=== PATIENT | female | born 1935 | race Caucasian/White ===

== ENCOUNTER → 2019-11-22 15:28 | Outpatient (BNVA) | payer MEDICARE, BC, SELFPAY | PROVIDERS: Visit Provider Nurse Practitioner Family | DX: E11.9 Type 2 diabetes mellitus without complications (principal); M15.9 Polyosteoarthritis, unspecified; F03.90 Unspecified dementia, unspecified severity, without behavioral disturbance, psychotic disturbance, mood disturbance, and anxiety; R29.6 Repeated falls; R26.81 Unsteadiness on feet; M62.59 Muscle wasting and atrophy, not elsewhere classified, multiple sites; R52 Pain, unspecified; I10 Essential (primary) hypertension; K57.92 Diverticulitis of intestine, part unspecified, without perforation or abscess without bleeding | CPT/HCPCS: 80053; 81003; 85025 ==

== ENCOUNTER 2019-11-25 10:17 | Emergency (ER) | payer MEDICARE, SELFPAY ==
[2019-11-25 10:18] VITALS: BP 196/85; PULSE 60; RESP 18; TEMP 36.5; O2SAT 94; BMI 23.8
--- NOTE | 2019-11-25 10:27 | ED_ITS ---
Entered by Genoveva Beltre, acting as scribe for Mendel Shahid DO HPI - Altered Mental Status General: Chief Complaint: Altered Mental Status Stated Complaint: AMS Time Seen by Provider: 11/25/19 10:28 History of Present Illness: HPI narrative: 84 yo female presents with altered mental status. Family member states that pt has had a complete mental status change. Pt is incontinent of bowel and bladder. Pts speech is slurred at times. Pt has diabetes and hasn't been treated for her diabetes. Pt answers questions when asked. Pt denies burning with urination or pain. MD complaint: altered mental status Onset (ago): day(s) Timing confirmed by: family member Severity: moderate Consistency of symptoms: Waxing and Waning Associated symptoms: Deny auditory hallucinations, visual hallucinations, depression, homicidal ideation or suicidal ideation Review of Systems Const: Denies: fever, chills, body aches, fatigue, malaise or night sweats Eyes: Denies: change in vision or blurry vision ENMT: Denies: throat pain, oral sores/lesions, dental pain, nasal discharge or nasal congestion Card: Denies: chest pain, palpitations, irregular heart rhythm, edema, syncope, shortness of breath on exertion, shortness of breath when lying down or leg pain with exertion Resp: Denies: shortness of breath, productive cough, non-productive cough or wheezing GI: Reports: abdominal pain; Denies: nausea, vomiting, vomiting blood, coffee grounds in vomit, difficulty swallowing, heartburn/indigestion, diarrhea, constipation, cramping, blood in stool or black tarry stool : Denies: flank pain, painful urination, urinary frequency, urinary urgency, urinary incontinence or blood in urine Musc: Denies: neck pain, back pain, extremity pain, extremity swelling, joint pain or joint swelling Skin/Breast: Denies: rash, itching or redness Neuro: Denies: headache, numbness in extremities, weakness in extremities, changes in sensation, lack of coordination, difficulty walking, frequent falls, dizziness, vertigo or confusion Psych: Denies: anxiety, depression, loss of interest, visual hallucinations, auditory hallucinations, suicidal ideation or homicidal ideation Endo: Denies: excessive urination, excessive thirst, tired all the time or cold intolerance Freddy/Lymph: Denies: easy bruising, easy bleeding, petechiae, enlarged lymph nodes or tender lymph nodes PFSH ED PFSH: Medical History Dementia Hypertension Muscle wasting and atrophy, not elsewhere classified, multiple sites Osteoarthritis Social History Smoking and tobacco status: never smoked Second hand smoke exposure: No Alcohol intake: never Lives independently: Yes Household members: spouse and other Details: children rotate staying at night Housing: House Marital status: Current occupational status: retired History of recent travel: No Current gender identity: Female Physical Exam Const: COMMON NORMALS: average body habitus, oriented x3 and alert GENERAL APPEARANCE: cooperative, comfortable, well kempt and well developed NUTRITIONAL APPEARANCE: not obese ORIENTATION/CONSCIOUSNESS: Yes awake, Yes oriented to person and Yes oriented to place HENMT: COMMON NORMALS: normocephalic, head/scalp atraumatic, EAC's normal, TM's normal bilaterally, external nose normal, moist oral mucous membranes and oropharynx normal HEAD & SCALP: normocephalic and atraumatic NOSE: external nose normal EXTERNAL AUDITORY CANAL: EAC's normal TYMPANIC MEMBRANE: TM's normal bilaterally MOUTH: oral and palatal mucosa normal, lip normal and tongue normal THROAT: posterior oropharynx normal and tonsils normal Eye: COMMON NORMALS: PERRL, EOMs intact bilaterally, conjunctivae normal and no scleral icterus CONJUNCTIVA: Yes conjunctivae normal PUPIL: Yes PERRL Neck/C-Spine: COMMON NORMALS: full ROM, no lymphadenopathy, supple, no meningeal signs and thyroid normal THYROID: thyroid normal and asymmetrical Lymph: LYMPHATIC: no lymphadenopathy noted Resp: COMMON NORMALS: normal respiratory effort, no retractions, no use of accessory muscles and clear to auscultation bilaterally AUSCULTATION: clear to auscultation bilaterally Cardio: COMMON NORMALS: regular rate and regular rhythm RATE: regular rate RHYTHM: regular rhythm HEART SOUNDS: no murmurs GI: COMMON NORMALS: normal to inspection, nondistended, normoactive bowel sounds, soft to palpation and no hepatosplenomegaly PALPATION: Yes soft and Yes no hepatosplenomegaly : COMMON NORMALS: Yes no CVA tenderness BLADDER/KIDNEY EXAM: Yes no CVA tenderness Back/Pelvis: COMMON NORMALS: no CVA tenderness LUMBAR SPINE/LOWER BACK: Yes normal to inspection Extremity: COMMON NORMALS: no clubbing, cyanosis or edema, no calf tenderness and no pedal edema Neuro: COMMON NORMALS: oriented x3 SENSORIUM/ORIENTATION: Yes alert, Yes oriented to person and Yes oriented to place MENINGEAL SIGNS: Yes no meningeal signs Psych: APPEARANCE: Yes well kempt Skin: COMMON NORMALS: no rashes or lesions noted and skin turgor normal GENERAL SKIN EXAM: no rashes or lesions noted and turgor normal Course ED course: Patient has no significant neurologic deficits now other than the slurred speech reported by the family earlier. Discussed different options they are not interested in anything aggressive because of her memory issues. We will go ahead and discharge her home at this time. If she has worsening problems she can return encourage 81 mg aspirin daily. Findings on the stroke score more consistent with her dementia. Family does not wish to pursue anything else at this time. Vital Signs: Vital signs: Vital Signs Temperature 97.7 F 11/25/19 10:18 Pulse Rate 60 11/25/19 14:47 Respiratory Rate 16 11/25/19 14:47 Blood Pressure 167/83 11/25/19 14:47 Pulse Oximetry 94 11/25/19 14:47 MDM - Altered Mental Status Lab Data: Labs: Lab Results 11/25/19 11/25/19 11/25/19 Range/Units 10:58 10:58 11:07 WBC (4.0-10.0) 10^3/ uL RBC (4.1-5.3) 10^6/u L Hgb (11.5-15.3) g/dL Hct (37.0-47.0) % MCV (81-99) fL MCH (28.0-34.0) pg MCHC (30.0-36.0) g/dL RDW (12.1-15.1) % Plt Count (130-400) 10^3/c mm MPV (7.4-10.4) fL Neut % (Auto) % Lymph % (Auto) % [place] % (Auto) % Eos % (Auto) % Baso % (Auto) % Neut # (Auto) (1.8-7.7) 10^3/u L Lymph # (Auto) (0.8-4.8) 10^3/u L [place] # (Auto) (0.2-0.9) 10^3/u L Eos # (Auto) (0.0-0.8) 10^3/u L Baso # (Auto) (0.0-0.1) 10^3/u L Nucleated RBC % (a uto) % Nucleated RBCs # /100WBC PT (10.5-13.3) SECO NDS INR (0.8-1.2) APTT (23.9-36.7) SECO NDS Sodium (136-145) mmol/L Potassium (3.5-5.1) mmol/L Chloride (98-107) mmol/L Carbon Dioxide (22-29) mmol/L Anion Gap (5-19) BUN (8-23) mg/dL Creatinine (0.5-0.9) mg/dL Glucose (65-115) mg/dL POC Glucose 296 (70-110) mg/dL Calcium (8.5-10.5) mg/dL Total Bilirubin (0.15-1.2) mg/dL AST (0-32) U/L ALT (0-33) U/L Alkaline Phosphata se (35-105) IU/L Troponin T Baselin e (0-10) ng/mL Troponin T 120 Min [place] (0-10) ng/mL Delta Troponin T (0-10) ABS# Total Protein (6.6-8.7) g/dL Albumin (3.5-5.2) g/dL Globulin (1.3-4.6) g/dL Urine Color Straw (Yellow) Urine Appearance Clear (CLEAR) Urine pH 7.0 (5-7) Ur Specific Gravit y 1.005 (1.005-1.030) Urine Protein Neg (Negative) Urine Glucose (UA) 4+ H (Normal) Urine Ketones Negative (Negative) Urine Blood Neg (Negative) Urine Nitrate Negative (Negative) Urine Bilirubin Neg (NEGATIVE) Urine Urobilinogen 4 H (Negative) mg/dL Ur Leukocyte [place]rec[place] ase Negative (Negative) Urine Opiates Scre en Negative (Negative) ng/mL Ur Barbiturates Sc reen Negative (Negative) ng/mL Ur Phencyclidine S crn Negative (Negative) ng/mL Ur Amphetamines Sc reen Negative (Negative) ng/mL U Benzodiazepines Scrn Negative (Negative) ng/mL Urine Cocaine Scre en Negative (Negative) ng/mL U Marijuana (THC) Screen Negative (Negative) ng/mL 11/25/19 11/25/19 11/25/19 Range/Units 11:13 11:13 11:13 WBC 7.0 (4.0-10.0) 10^3/ uL RBC 4.82 (4.1-5.3) 10^6/u L Hgb 14.6 (11.5-15.3) g/dL Hct 44.9 (37.0-47.0) % MCV 93.2 (81-99) fL MCH 30.3 (28.0-34.0) pg MCHC 32.5 (30.0-36.0) g/dL RDW 12.0 L (12.1-15.1) % Plt Count 291 (130-400) 10^3/c mm MPV 10.4 (7.4-10.4) fL Neut % (Auto) 68.0 % Lymph % (Auto) 21.6 % [place] % (Auto) 6.4 % Eos % (Auto) 2.8 % Baso % (Auto) 0.9 % Neut # (Auto) 4.8 (1.8-7.7) 10^3/u L Lymph # (Auto) 1.5 (0.8-4.8) 10^3/u L [place] # (Auto) 0.5 (0.2-0.9) 10^3/u L Eos # (Auto) 0.2 (0.0-0.8) 10^3/u L Baso # (Auto) 0.1 (0.0-0.1) 10^3/u L Nucleated RBC % (a uto) 0 % Nucleated RBCs # 0.0 /100WBC PT 14.40 H (10.5-13.3) SECO NDS INR 1.11 (0.8-1.2) APTT 25.4 (23.9-36.7) SECO NDS Sodium 132 L (136-145) mmol/L Potassium 4.1 (3.5-5.1) mmol/L Chloride 96 L (98-107) mmol/L Carbon Dioxide 25 (22-29) mmol/L Anion Gap 15.1 (5-19) BUN 10 (8-23) mg/dL Creatinine 0.6 (0.5-0.9) mg/dL Glucose 360 H (65-115) mg/dL POC Glucose (70-110) mg/dL Calcium 10.1 (8.5-10.5) mg/dL Total Bilirubin 1.0 (0.15-1.2) mg/dL AST 21 (0-32) U/L ALT 11 (0-33) U/L Alkaline Phosphata se 123 H (35-105) IU/L Troponin T Baselin e (0-10) ng/mL Troponin T 120 Min [place] (0-10) ng/mL Delta Troponin T (0-10) ABS# Total Protein 7.4 (6.6-8.7) g/dL Albumin 3.6 (3.5-5.2) g/dL Globulin 3.8 (1.3-4.6) g/dL Urine Color (Yellow) Urine Appearance (CLEAR) Urine pH (5-7) Ur Specific Gravit y (1.005-1.030) Urine Protein (Negative) Urine Glucose (UA) (Normal) Urine Ketones (Negative) Urine Blood (Negative) Urine Nitrate (Negative) Urine Bilirubin (NEGATIVE) Urine Urobilinogen (Negative) mg/dL Ur Leukocyte Grecia ase (Negative) Urine Opiates Scre en (Negative) ng/mL Ur Barbiturates Sc reen (Negative) ng/mL Ur Phencyclidine S crn (Negative) ng/mL Ur Amphetamines Sc reen (Negative) ng/mL U Benzodiazepines Scrn (Negative) ng/mL Urine Cocaine Scre en (Negative) ng/mL U Marijuana (THC) Screen (Negative) ng/mL 11/25/19 11/25/19 Range/Units 11:13 13:49 WBC (4.0-10.0) 10^3/ uL RBC (4.1-5.3) 10^6/u L Hgb (11.5-15.3) g/dL Hct (37.0-47.0) % MCV (81-99) fL MCH (28.0-34.0) pg MCHC (30.0-36.0) g/dL RDW (12.1-15.1) % Plt Count (130-400) 10^3/c mm MPV (7.4-10.4) fL Neut % (Auto) % Lymph % (Auto) % [place] % (Auto) % Eos % (Auto) % Baso % (Auto) % Neut # (Auto) (1.8-7.7) 10^3/u L Lymph # (Auto) (0.8-4.8) 10^3/u L [place] # (Auto) (0.2-0.9) 10^3/u L Eos # (Auto) (0.0-0.8) 10^3/u L Baso # (Auto) (0.0-0.1) 10^3/u L Nucleated RBC % (a uto) % Nucleated RBCs # /100WBC PT (10.5-13.3) SECO NDS INR (0.8-1.2) APTT (23.9-36.7) SECO NDS Sodium (136-145) mmol/L Potassium (3.5-5.1) mmol/L Chloride (98-107) mmol/L Carbon Dioxide (22-29) mmol/L Anion Gap (5-19) BUN (8-23) mg/dL Creatinine (0.5-0.9) mg/dL Glucose (65-115) mg/dL POC Glucose (70-110) mg/dL Calcium (8.5-10.5) mg/dL Total Bilirubin (0.15-1.2) mg/dL AST (0-32) U/L ALT (0-33) U/L Alkaline Phosphata se (35-105) IU/L Troponin T Baselin e 11 H (0-10) ng/mL Troponin T 120 Min [place] 10.30 H (0-10) ng/mL Delta Troponin T -0.70 L (0-10) ABS# Total Protein (6.6-8.7) g/dL Albumin (3.5-5.2) g/dL Globulin (1.3-4.6) g/dL Urine Color (Yellow) Urine Appearance (CLEAR) Urine pH (5-7) Ur Specific Gravit y (1.005-1.030) Urine Protein (Negative) Urine Glucose (UA) (Normal) Urine Ketones (Negative) Urine Blood (Negative) Urine Nitrate (Negative) Urine Bilirubin (NEGATIVE) Urine Urobilinogen (Negative) mg/dL Ur Leukocyte Grecia ase (Negative) Urine Opiates Scre en (Negative) ng/mL Ur Barbiturates Sc reen (Negative) ng/mL Ur Phencyclidine S crn (Negative) ng/mL Ur Amphetamines Sc reen (Negative) ng/mL U Benzodiazepines Scrn (Negative) ng/mL Urine Cocaine Scre en (Negative) ng/mL U Marijuana (THC) Screen (Negative) ng/mL Discharge Plan Discharge Patient Disposition: Home, Self-Care Clinical Impression: Dementia Qualifiers: Dementia type: unspecified type Dementia behavioral disturbance: without behavioral disturbance Qualified Code(s): F03.90 - Unspecified dementia without behavioral disturbance Hypertension Qualifiers: Hypertension type: essential hypertension Qualified Code(s): I10 - Essential (primary) hypertension Condition: Stable Prescriptions: New amlodipine 5 mg tablet 5 mg PO DAILY Qty: 30 RF: 0 Changed metoprolol tartrate 25 mg tablet 12.5 mg PO BID Qty: 0 RF: 0 No Action isosorbide mononitrate 60 mg tablet extended release 24 hr 60 mg PO QAM RF: 0 gabapentin 300 mg capsule 600 mg PO BID RF: 0 citalopram 10 mg tablet 10 mg PO DAILY RF: 0 trazodone 50 mg tablet 25 mg PO BEDTIME RF: 0 naproxen 500 mg tablet 500 mg PO BID PRN (Reason: Pain) RF: 0 ketoconazole 2 % cream 1 applic TOPICAL BID RF: 0 donepezil 10 mg tablet 10 mg PO BEDTIME RF: 0 metronidazole [Flagyl] 250 mg tablet 250 mg PO QID 7 Days Qty: 28 RF: 0 ciprofloxacin HCl [Cipro] 500 mg tablet 500 mg PO BID Qty: 14 RF: 0 Discharge Orders: Discharge Order (Routine); Ordered 11/25/19 Ordered By: Mendel Shahid Discharge Diet: Usual diet Discharge Activity: Resume usual activity Activity Restrictions/Additional Instructions: Follow up with your primary care doctor within the next week Discharge Date/Time: 11/25/19 14:48 Coding Level of Care Code ED Needle Molder for Zahra Fwli Exam Comprehensive NIH stroke score NIHSS Level Of Consciousness - 1a: 0 Level Of Consciousness Questions - 1b: One Correct Level Of Consciousness Commands - 1c: One Correct Best Gaze - 2: Normal Visual Chi - 3: No Visual Loss Facial Palsy - 4: Normal Motor Arm Right - 5: No Drift Motor Arm Left - 5: No Drift Motor Leg Right - 6: No Drift Motor Leg Left - 6: No Drift Limb Ataxia - 7: Absent Sensory - 8: Normal Best Language - 9: No Aphasia Dysarthia - 10: Mild/Moderate Dysarthia Extinction And Inattention - 11: 1 Score Total Score: 4 The documentation recorded by the Alexsander wilkinson Kialy, accurately reflects the service I personally performed and the decisions made by Zehra delgado Curtis L, Nov 25, 2019 10:17
[2019-11-25 10:33] VITALS: BP 220/108; PULSE 57; RESP 16; O2SAT 96
--- NOTE | 2019-11-25 10:43 | CT_ITS ---
WS: [id number] CT scan of the head, 11/25/2019 Clinical Data: Symptoms of Acute Stroke Comparison: MRI of the head and brain, 04/20/2010 DLP: 755.[address] scans at [facility] use at least one of these dose optimization techniques: automat ed exposure control; mA and/or kV adjustment per patient size (includes targeted exams where dose is matched to clinical indication); or iterative reconstruction. Findings: The ventricular system is moderately dilated without shift. No recent infarct or hemorrhage is seen. There are no abnormal intracerebral masses. The cerebellum and brainstem are not remarkable. Bony windows of the skull and skull base show no fractures or erosions. The mastoid air cells, copywriting intern al auditory canals, sella turcica, intraorbital contents, and paranasal sinuses are unremarkable. CT/CT head wo con* [id number] Impression: Negative for acute intracranial abnormalities.
--- NOTE | 2019-11-25 10:44 | ECG_ITS ---
Measurements Intervals [place] Rate: 58 P: 21 ND: 203 QRS: -24 QRSD: 86 T: 28 QT: 466 QTc: 459 SINUS BRADYCARDIA BORDERLINE LEFT AXIS DEVIATION [QRS AXIS < -20] MODERATE VOLTAGE CRITERIA FOR LVH, CONSIDER NORMAL VARIANT [MEETS CRITERIA IN ON ONE OF: R(aVL), S(V1), R(V5), R(V5/V6)+S(V1)] No previous ECG available for comparison Electronically Signed On 11-25-2019 21:20:52 [employer] SALES ENGINEER by Katerina Garcia M.D. [email or web address] f
[2019-11-25 11:07] VITALS: BP 189/91; PULSE 59; RESP 16; O2SAT 95
[2019-11-25 11:12] LABS: Glucose Point of Care 296 mg/dL (70-110)
--- NOTE | 2019-11-25 11:19 | PC.PHAR ---
pts family states pt has cipro and flagyl but hasnt started taking yet it was given for just incase
[2019-11-25 11:21] LABS: Basophils # 0.1 10^3/uL (0.0-0.1); Basophils % 0.9 %; Eosinophils # 0.2 10^3/uL (0.0-0.8); Eosinophils % 2.8 %; Hematocrit 44.9 % (37.0-47.0); Hemoglobin 14.6 g/dL (11.5-15.3); Lymphocytes # 1.5 10^3/uL (0.8-4.8); Lymphocytes % 21.6 %; Mean Corpuscular HGB Conc 32.5 g/dL (30.0-36.0); Mean Corpuscular Hemoglobin 30.3 pg (28.0-34.0); Mean Corpuscular Volume 93.2 fL (81-99); Mean Platelet Volume 10.4 fL (7.4-10.4); Monocytes # 0.5 10^3/uL (0.2-0.9); Monocytes % 6.4 %; Neutrophils # 4.8 10^3/uL (1.8-7.7); Nucleated Red Blood Cells % 0 %; Platelet Count 291 10^3/cmm (130-400); Red Blood Count 4.82 10^6/uL (4.1-5.3)
[2019-11-25 11:28] LABS: Add Urine Microscopic? NO
[2019-11-25 11:45] LABS: INR 1.11 (0.8-1.2); Partial Thromboplastin Time 25.4 SECONDS (23.9-36.7)
[2019-11-25 11:48] LABS: Alanine Aminotransferase 11 U/L (0-33); Albumin Level 3.6 g/dL (3.5-5.2); Alkaline Phosphatase 123 IU/L (35-105); Anion Gap 15.1 (5-19); Aspartate Amino Transferase 21 U/L (0-32); Blood Urea Nitrogen 10 mg/dL (8-23); Calcium 10.1 mg/dL (8.5-10.5); Carbon Dioxide 25 mmol/L (22-29); Chloride 96 mmol/L (98-107); Creatinine Clr Calc Pharmacy 44.3331; Globulin 3.8 g/dL (1.3-4.6); Glucose 360 mg/dL (65-115); Potassium 4.1 mmol/L (3.5-5.1); Sodium 132 mmol/L (136-145); Total Protein 7.4 g/dL (6.6-8.7)
[2019-11-25 11:49] LABS: Troponin(5th) Baseline 11 ng/mL (0-10)
[2019-11-25 11:51] LABS: Bilirubin Urine Neg (NEGATIVE); Blood Urine Neg (Negative); Glucose Urine UA 4+ (Normal); Ketones Urine Negative (Negative); Leukocyte Esterase Urine Negative (Negative); Nitrate Urine Negative (Negative); Protein Urine Neg (Negative); Specific Gravity, Urine 1.005 (1.005-1.030); Urine Appearance Clear (CLEAR); Urine Color Straw (Yellow); Urobilinogen Urine 4 mg/dL (Negative)
--- NOTE | 2019-11-25 12:02 | CT_ITS ---
WS: [id number] CT scan of the abdomen and pelvis with IV contrast. Additional two-dimensional coronal and sagittal r econstruction was performed. 11/25/2019 Clinical Data: abd pain Comparison: CT abdomen and pelvis, 07/12/2009 DLP: 598.[address] scans at [facility] use at least one of these dose optimization techniques: automat ed exposure control; mA and/or kV adjustment per patient size (includes targeted exams where dose is matched to clinical indication); or iterative reconstruction. Findings: The lower lungs show no nodules, masses or effusions. Bilateral hilar and subcarinal calcifications a re present. There is coronary artery calcification. The liver, gallbladder, spleen, adrenal glands and pancreas are normal. The kidneys show equal bilateral contrast excretion with a 4.04 cm left medial renal cortical cyst. N o hydronephrosis, masses or renal calculi are seen. The abdominal aorta is normal in size with calcif ication in the wall. No abscess, adenopathy, ascites, mass, obstruction or free air is seen.. No appendicitis or diverticulitis is seen. The stomach, small bowel and colon show no acute abnormali ties. There are numerous sigmoid diverticula. Uterus is absent.. The bladder is unremarkable. No ingu inal hernia is seen. The bones of the lower thorax, lumbar spine, pelvis, and hips show degenerative arthritic change of t he lumbar vertebral bodies with multiple levels of degenerative disc narrowing.. CT/CT abdomen pelvis w con* [id number] Impression: Negative for acute intra-abdominal or pelvic abnormalities.
[2019-11-25 12:10] LABS: Amphetamines Screen Urine Negative (Negative); Barbiturates Screen Urine Negative (Negative); Benzodiazepines Screen Urine Negative (Negative); Cocaine Screen Urine Negative (Negative); Opiate Screen Urine Negative (Negative); PCP Screen Urine Negative (Negative); THC Screen Urine Negative (Negative)
--- NOTE | 2019-11-25 12:44 | ECG_ITS ---
Measurements Intervals [place] Rate: 58 P: 83 [place]: 198 QRS: -19 QRSD: 97 T: 16 QT: 472 QTc: 467 SINUS BRADYCARDIA MINIMAL VOLTAGE CRITERIA FOR LVH, CONSIDER NORMAL VARIANT No previous ECG available for comparison Electronically Signed On 11-25-2019 21:24:38 ALLIGATOR HUNTER by Katerina Garica M.D. [email or web address]
[2019-11-25] MEDS: iohexol 300 mg/mL 100 mL Btl IV (13:10)
[2019-11-25 13:32] VITALS: BP 207/139; PULSE 60; RESP 17; O2SAT 94
[2019-11-25] MEDS: amlodipine 5 mg Tablet PO (14:32)
[2019-11-25 14:47] VITALS: BP 167/83; PULSE 60; RESP 16; O2SAT 94
== END 2019-11-25 14:48 | disposition home or self-care (01) ==
PROVIDERS: Emergency Provider Family Medicine
DX: F03.90 Unspecified dementia, unspecified severity, without behavioral disturbance, psychotic disturbance, mood disturbance, and anxiety (principal); I10 Essential (primary) hypertension
CPT/HCPCS: 36415; 36416; 70450; 74177; 80053; 80306; 80307; 81003; 82962; 84484; 85025; 85610; 85730; 93005; 99283; Q9967

== ENCOUNTER 2019-11-26 17:34 | Inpatient (IN) | payer MEDICARE, BC, SELFPAY ==
[2019-11-26] VITALS (24 sets, daily range): BP systolic 108–189; BP diastolic 46–90; PULSE 59–89; RESP 11–20; TEMP 36.5–36.6; O2SAT 90–98
--- NOTE | 2019-11-26 17:41 | ECG_ITS ---
Measurements Intervals [place] Rate: 58 P: 74 AR: 194 QRS: -4 QRSD: 91 T: 7 QT: 437 QTc: 431 SINUS BRADYCARDIA POSSIBLE ANTERIOR MYOCARDIAL INFARCTION , PROBABLY OLD [30 ms Q WAVE IN V3/V4, OR R < 0.2 mV IN V4] Compared to ECG 11/25/2019 12:45:15 Myocardial infarct finding now present Electronically Signed On 11-27-2019 7:49:34 IRON MOLDER HELPER by Katerina Garcia M.D. [email or web address]
--- NOTE | 2019-11-26 17:42 | ED_ITS ---
Entered by Tigist Matos, acting as scribe for Glendy Yeager MD HPI - Fall General: Chief Complaint: Fall Stated Complaint: FALL/ R LEG INJURY/ FACIAL DROOP/ SLURRED SPEECH Time Seen by Provider: 11/26/19 17:41 Source: family, EMS and RN notes reviewed Mode of arrival: EMS Limitations: altered mental status History of Present Illness: HPI Narrative: 84 yo female presents to ED after a fall that occurred today. The patient had gotten up to go to the bathroom when she fell. The spouse states the patient did not hit her head. She has pain and difficulty moving her L hip. She began having difficulty with her speech, slurring her words. Her last known normal was about 1600 today. 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 She is not following commands. The patient was here ysterday. complaint: fall Onset (ago): hour(s) (1.5 (1600)) Fall from: standing Fall witnessed: yes, by family Place fall occurred: care home/SNF Loss of consciousness: None Prolonged down time: no Symptoms prior to fall: none Context: tripped/slipped Location of injury: pelvis (R hip) Severity: severe Quality: sharp Associated symptoms-after fall: Reports difficulty walking; Denies abdominal pain, chest pain or neck pain Review of Systems Const: Denies: fever, chills, body aches or change in appetite Eyes: Denies: blurry vision or eye discomfort ENMT: Denies: throat pain or dental pain Card: Denies: chest pain Resp: Denies: shortness of breath GI: Denies: abdominal pain, nausea, vomiting or diarrhea : Denies: painful urination Musc: Denies: neck pain or back pain Skin/Breast: Denies: rash Neuro: Reports: difficulty walking Psych: Denies: depression Freddy/Lymph: Denies: easy bruising All/Imm: Denies: hives PFSH ED PFSH: Medical History (Updated 11/26/19 @ 19:16 by Glendy Yeager MD) Closed intertrochanteric fracture of right hip Dementia Hypertension Muscle wasting and atrophy, not elsewhere classified, multiple sites Osteoarthritis Subtrochanteric fracture of right femur Family History (Updated 11/22/19 @ 14:08 by Sue Gates LPN, RT) Family/Other Hypertension Heart disease Dementia CAD (coronary artery disease) Hyperlipidemia Social History (Updated 11/22/19 @ 14:34 by Sue Gates LPN, RT) Smoking and tobacco status: never smoked Second hand smoke exposure: No Alcohol intake: never Lives independently: Yes Household members: spouse Housing: House Marital status: Current occupational status: retired History of recent travel: No Current gender identity: Female Physical Exam Const: COMMON NORMALS: oriented x3 and healthy appearing HENMT: COMMON NORMALS: normocephalic and head/scalp atraumatic HEAD & SCALP: normocephalic and atraumatic Eye: COMMON NORMALS: PERRL and EOMs intact bilaterally PUPIL: Yes PERRL Neck/C-Spine: COMMON NORMALS: full ROM and supple Chest: COMMONS NORMALS: inspection of chest normal and palpation of chest normal Resp: COMMON NORMALS: normal respiratory effort, no retractions, no use of accessory muscles and clear to auscultation bilaterally AUSCULTATION: clear to auscultation bilaterally Cardio: COMMON NORMALS: regular rate, regular rhythm and no murmurs RATE: regular rate RHYTHM: regular rhythm GI: COMMON NORMALS: normal to inspection, nondistended, normoactive bowel sounds, soft to palpation, non-tender and no masses PALPATION: Yes soft Extremity: RIGHT LOWER EXTREMITY: Yes hip joint Neuro: COMMON NORMALS: oriented x3, moves all extremities and no focal motor deficits Psych: COMMON NORMALS: mental status grossly normal, thought process normal and cooperative THOUGHT PROCESS: normal thought process Skin: COMMON NORMALS: no rashes or lesions noted and no wounds GENERAL SKIN EXAM: no rashes or lesions noted Course Reevaluation(s): Reevaluation #1: Patient presents here after a fall and has a likely hip fracture will get x-ray on the hip. From family and EMS patient has had slurred speech and some facial droop over the last 2 hours. Patient was seen here in the ER for the same and speaking to the daughter who is a nurse I believe states she has been having these periods off and on where she has had difficulty speaking for days. I had a long discussion with her and discussed the possibility TPA or stroke alert and she states that this time she does not want to be aggressive and would not want TPA or any type of those measures. Exam on patient is very difficult because she received fentanyl. She is moving all her extremities at this time but will not answer any questions but again from family she has periods like this with her dementia. I did inform daughter if she changes her mind at all about being aggressive to let me know but did let her know that this is a time sensitive matter and she understands it but she states that this time that she would not want TPA or any aggressive measures. Time: 18:01 Vital Signs: Vital signs: Vital Signs Pulse Rate 59 L 11/26/19 18:02 Respiratory Rate 16 11/26/19 18:29 Blood Pressure 189/84 11/26/19 18:02 Pulse Oximetry 93 11/26/19 18:29 MDM - Fall MDM Narrative: Medical decision making narrative: Patient presents here with fall and does have a right hip fracture. Patient's head CT here is normal lab work is normal besides hyperglycemia. Patient has been stable while here. I spoke to hospitalist and will admit and I also spoke to orthopedic surgeon. Lab Data: Labs: Lab Results 11/26/19 11/26/19 11/26/19 Range/Units 17:46 17:50 17:50 WBC 7.0 (4.0-10.0) 10^3/ uL RBC 4.61 (4.1-5.3) 10^6/u L Hgb 13.5 (11.5-15.3) g/dL Hct 42.0 (37.0-47.0) % MCV 91.1 (81-99) fL MCH 29.3 (28.0-34.0) pg MCHC 32.1 (30.0-36.0) g/dL RDW 12.2 (12.1-15.1) % Plt Count 336 (130-400) 10^3/c mm MPV 11.0 H (7.4-10.4) fL Neut % (Auto) 58.3 % Lymph % (Auto) 30.1 % [place] % (Auto) 8.0 % Eos % (Auto) 2.1 % Baso % (Auto) 1.1 % Neut # (Auto) 4.1 (1.8-7.7) 10^3/u L Lymph # (Auto) 2.1 (0.8-4.8) 10^3/u L [place] # (Auto) 0.6 (0.2-0.9) 10^3/u L Eos # (Auto) 0.2 (0.0-0.8) 10^3/u L Baso # (Auto) 0.1 (0.0-0.1) 10^3/u L Nucleated RBC % (a uto) 0 % Nucleated RBCs # 0.0 /100WBC Sodium 132 L (136-145) mmol/L Potassium 3.9 (3.5-5.1) mmol/L Chloride 93 L (98-107) mmol/L Carbon Dioxide 26 (22-29) mmol/L Anion Gap 16.9 (5-19) BUN 19 (8-23) mg/dL Creatinine 0.9 (0.5-0.9) mg/dL Glucose 489 H (65-115) mg/dL POC Glucose 444 (70-110) mg/dL Calcium 10.1 (8.5-10.5) mg/dL Total Bilirubin 0.5 (0.15-1.2) mg/dL AST 16 (0-32) U/L ALT 11 (0-33) U/L Alkaline Phosphata se 128 H (35-105) IU/L Total Protein 6.5 L (6.6-8.7) g/dL Albumin 3.8 (3.5-5.2) g/dL Globulin 2.7 (1.3-4.6) g/dL Urine Color (Yellow) Urine Appearance (CLEAR) Urine pH (5-7) Ur Specific Gravit y (1.005-1.030) Urine Protein (Negative) Urine Glucose (UA) (Normal) Urine Ketones (Negative) Urine Blood (Negative) Urine Nitrate (Negative) Urine Bilirubin (NEGATIVE) Urine Urobilinogen (Negative) mg/dL Ur Leukocyte Grecia ase (Negative) 11/26/19 Range/Units 18:53 WBC (4.0-10.0) 10^3/ uL RBC (4.1-5.3) 10^6/u L Hgb (11.5-15.3) g/dL Hct (37.0-47.0) % MCV (81-99) fL MCH (28.0-34.0) pg MCHC (30.0-36.0) g/dL RDW (12.1-15.1) % Plt Count (130-400) 10^3/c mm MPV (7.4-10.4) fL Neut % (Auto) % Lymph % (Auto) % [place] % (Auto) % Eos % (Auto) % Baso % (Auto) % Neut # (Auto) (1.8-7.7) 10^3/u L Lymph # (Auto) (0.8-4.8) 10^3/u L [place] # (Auto) (0.2-0.9) 10^3/u L Eos # (Auto) (0.0-0.8) 10^3/u L Baso # (Auto) (0.0-0.1) 10^3/u L Nucleated RBC % (a uto) % Nucleated RBCs # /100WBC Sodium (136-145) mmol/L Potassium (3.5-5.1) mmol/L Chloride (98-107) mmol/L Carbon Dioxide (22-29) mmol/L Anion Gap (5-19) BUN (8-23) mg/dL Creatinine (0.5-0.9) mg/dL Glucose (65-115) mg/dL POC Glucose (70-110) mg/dL Calcium (8.5-10.5) mg/dL Total Bilirubin (0.15-1.2) mg/dL AST (0-32) U/L ALT (0-33) U/L Alkaline Phosphata se (35-105) IU/L Total Protein (6.6-8.7) g/dL Albumin (3.5-5.2) g/dL Globulin (1.3-4.6) g/dL Urine Color Yellow (Yellow) Urine Appearance Clear (CLEAR) Urine pH 5 (5-7) Ur Specific Gravit y 1.015 (1.005-1.030) Urine Protein Neg (Negative) Urine Glucose (UA) 4+ H (Normal) Urine Ketones Negative (Negative) Urine Blood Neg (Negative) Urine Nitrate Negative (Negative) Urine Bilirubin Neg (NEGATIVE) Urine Urobilinogen 1 H (Negative) mg/dL Ur Leukocyte Grecia ase Negative (Negative) Imaging Data^: xr hip: Radiologist's impression: ering Provider/Ordering MD: Glendy Yeager MD Date of Service: 11/26/19 Procedure(s): XR hip RT 2-3V wo/w pel* [id number] Accession Number(s): [id number] Report Number: [id number] PROCEDURE INFORMATION: Exam: XR Right Hip with Pelvis when Performed Exam date and time: 11/26/2019 6:20 PM Age: 84 years old Clinical indication: Injury or trauma; Fall; Initial encounter; Blunt trauma (contusions or hematomas); Right; Hip TECHNIQUE: Imaging protocol: XR Right hip with pelvis when performed. Views: 2 or 3 views. COMPARISON: CT abdomen pelvis w con* [id number] 11/25/2019 1:24 PM FINDINGS: Bones/joints: There is a markedly comminuted and overriding right intertrochanteric femur fracture. No additional acute fracture. There are moderate degenerative changes in the right hip and sacroiliac joint. No aggressive a neoplastic bony destruction is identified. Soft tissues: There is soft tissue edema. XR/XR hip RT 2-3V wo/w pel* [id number] IMPRESSION: There is a markedly comminuted and overriding right intertrochanteric femur fracture. CT Head: Radiologist's impression: Ordering Provider/Ordering MD: Glendy Yeager MD Date of Service: 11/26/19 Procedure(s): CT head wo con* [id number] Accession Number(s): [id number] Report Number: [id number] PROCEDURE INFORMATION: Exam: CT Head Without Contrast Exam date and time: 11/26/2019 5:45 PM Age: 84 years old Clinical indication: Speech disturbance; Unspecified; Patient HX: Fall - HX of dementia - garbled speech - unable to follow instructions; Additional info: Symptoms of acute stroke TECHNIQUE: Imaging protocol: Computed tomography of the head without contrast. Total DLP: 1430.14 mGy-cm Radiation optimization: All CT scans at this facility use at least one of these dose optimization techniques: automated exposure control; mA and/or kV adjustment per patient size (includes targeted exams where dose is matched to clinical indication); or iterative reconstruction. COMPARISON: CT head wo con* [id number] 11/25/2019 11:54 AM FINDINGS: Brain: Unchanged volume loss and periventricular low density compatible with small vessel disease changes. . No hemorrhage. Unremarkable white matter. No mass effect. Ventricles: Normal. No ventriculomegaly. Bones/joints: Unremarkable. No acute fracture. Sinuses: Visualized sinuses are unremarkable. No fluid levels. Mastoid air cells: Visualized mastoid air cells are well aerated. Soft tissues: Unremarkable. CT/CT head wo con* [id number] IMPRESSION: No acute intracranial abnormality. Radiation Dose CTDIVOL = (mGy): DLP = 1430.14 (mGy-cm) Dictated By: Leila Corley Signed By: Leila Corley Signed Date/Time: 11/26/191821 DD/ 20 EKG Data^: EKG 1: Attestation: I personally reviewed and interpreted this EKG as follows: EKG interpretation date: 11/26/19 EKG interpretation time: 18:24 Interpretation: sinus nila hr [address] or t wave abnormalities qrs 91 qtc 434 Discharge Plan Discharge Patient Disposition: Admitted As Inpatient Clinical Impression: Fall, Closed fracture of right hip, Acute hyperglycemia Condition: Stable Prescriptions: No Action isosorbide mononitrate 60 mg tablet extended release 24 hr 60 mg PO QAM RF: 0 gabapentin 300 mg capsule 600 mg PO BID RF: 0 citalopram 10 mg tablet 10 mg PO DAILY RF: 0 trazodone 50 mg tablet 25 mg PO BEDTIME RF: 0 naproxen 500 mg tablet 500 mg PO BID PRN (Reason: Pain) RF: 0 ketoconazole 2 % cream 1 applic TOPICAL BID RF: 0 donepezil 10 mg tablet 10 mg PO BEDTIME RF: 0 metronidazole [Flagyl] 250 mg tablet 250 mg PO QID 7 Days Qty: 28 RF: 0 ciprofloxacin HCl [Cipro] 500 mg tablet 500 mg PO BID Qty: 14 RF: 0 amlodipine 5 mg tablet 5 mg PO DAILY Qty: 30 RF: 0 metoprolol tartrate 25 mg tablet 12.5 mg PO BID Qty: 0 RF: 0 Referrals: Sue Monsivais FNP [Primary Care Provider] - Coding Level of Care Code ED Clinical Support Associate for Chg Fwd Exam Comprehensive The documentation recorded by the Carlo wilkinson Valerie R, accurately reflects the service I personally performed and the decisions made by Shobha delgado Korby, MD
[2019-11-26 17:49] LABS: Glucose Point of Care 444 mg/dL (70-110)
--- NOTE | 2019-11-26 17:54 | PC.NURSE ---
pt is unable to follow directions to get a accurate NIH scale.
[2019-11-26 17:59] LABS: Basophils # 0.1 10^3/uL (0.0-0.1); Basophils % 1.1 %; Eosinophils # 0.2 10^3/uL (0.0-0.8); Eosinophils % 2.1 %; Hemoglobin 13.5 g/dL (11.5-15.3); Lymphocytes # 2.1 10^3/uL (0.8-4.8); Lymphocytes % 30.1 %; Mean Corpuscular HGB Conc 32.1 g/dL (30.0-36.0); Mean Corpuscular Hemoglobin 29.3 pg (28.0-34.0); Mean Corpuscular Volume 91.1 fL (81-99); Monocytes # 0.6 10^3/uL (0.2-0.9); Neutrophils # 4.1 10^3/uL (1.8-7.7); Neutrophils % 58.3 %; Nucleated Red Blood Cells % 0 %; Platelet Count 336 10^3/cmm (130-400); Red Blood Count 4.61 10^6/uL (4.1-5.3); Red Cell Distribution Width 12.2 % (12.1-15.1)
[2019-11-26 18:22] LABS: Alanine Aminotransferase 11 U/L (0-33); Albumin Level 3.8 g/dL (3.5-5.2); Alkaline Phosphatase 128 IU/L (35-105); Anion Gap 16.9 (5-19); Aspartate Amino Transferase 16 U/L (0-32); Blood Urea Nitrogen 19 mg/dL (8-23); Calcium 10.1 mg/dL (8.5-10.5); Carbon Dioxide 26 mmol/L (22-29); Chloride 93 mmol/L (98-107); Globulin 2.7 g/dL (1.3-4.6); Glucose 489 mg/dL (65-115); Potassium 3.9 mmol/L (3.5-5.1); Sodium 132 mmol/L (136-145); Total Bilirubin 0.5 mg/dL (0.15-1.2); Total Protein 6.5 g/dL (6.6-8.7)
[2019-11-26] MEDS: HYDROmorphone 1 mg/mL INJ 1 mL IVP (18:29)
--- NOTE | 2019-11-26 18:32 | PC.NURSE ---
put pt on 2 l o2 via nasal cannula after dilaudid pushed over 3 min
[2019-11-26 19:01] LABS: Add Urine Microscopic? NO
[2019-11-26 19:04] LABS: Bilirubin Urine Neg (NEGATIVE); Blood Urine Neg (Negative); Glucose Urine UA 4+ (Normal); Ketones Urine Negative (Negative); Leukocyte Esterase Urine Negative (Negative); Nitrate Urine Negative (Negative); Protein Urine Neg (Negative); Specific Gravity, Urine 1.015 (1.005-1.030); Urine Appearance Clear (CLEAR); Urine Color Yellow (Yellow); Urobilinogen Urine 1 mg/dL (Negative); pH Urine 5 (5-7)
--- NOTE | 2019-11-26 19:06 | PM.MISC ---
Miscellaneous Note Purpose of Documentation: Pre-evaluation documentation Note: I have personally reviewed the x-rays following a call from the emergency department on this patient. The patient has a comminuted intertrochanteric/subtrochanteric hip fracture. Plan is to admit to the medical service and optimized for surgery.
[2019-11-26 19:21] LABS: Amphetamines Screen Urine Negative (Negative); Barbiturates Screen Urine Negative (Negative); Benzodiazepines Screen Urine Negative (Negative); Cocaine Screen Urine Negative (Negative); Opiate Screen Urine Negative (Negative); PCP Screen Urine Negative (Negative); THC Screen Urine Negative (Negative)
[2019-11-26 19:39] LABS: INR 1.18 (0.8-1.2)
[2019-11-26 19:40] LABS: Partial Thromboplastin Time 24.8 SECONDS (23.9-36.7)
--- NOTE | 2019-11-26 19:48 | PC.NURSE ---
Introduced self to patient and initiated vital signs. Patient presents A&O x 4. NAD, and ABCs intact. Respirations are even and unlabored. Pt states that the chief complaint for the ER visit today is due to a fractured hip (RT) from a ground level fall earlier today. Pt denies any vision disturbances or lightheadedness. Bed left in lowest position in semi-fowlers with side rails up.Reassured patient of needs and will continue to monitor.
--- NOTE | 2019-11-26 19:56 | PC.NURSE ---
Introduced self to patient and initiated vital signs. Patient presents NAD, ABCs intact, and agreeable to treatment. Respirations are even and unlabored. Pt states that the chief complaint for the ER visit today is due to a ground level fall and fracture of right femur. Bed left in lowest position with side rails up. Reassured patient of needs and will continue to monitor. Report called.
[2019-11-26 21:19] LABS: Glucose Point of Care 456 mg/dL (70-110)
--- NOTE | 2019-11-26 21:20 | PC.NURSE ---
Patient arrived from the ER at this time. Patient family at bedside stated that the patient was in the ER on 11/25/19 with increased confusion. Patient daughter states that the did a CT of head which was negative and that the patient improved and they went home. Patient daughter states that the ER doctor thought patient might of had a TIA. Patient has dementia. Patient daughter states that she stayed the night with the patient and then on 11/26/19 patient was more alert and had a good day. Patient daughter states that physical therapy came out around noon and patient did really well walking with a walker. Daughter states that they left patient and for just a couple of hours and when they did patient tried to get up from the chair by herself when her was in the bathroom and see fell and broke her right hip. Patient was brought to the ER and patient daughter said that patient had another CT which was again negative. Patient's daughter stated that the patient has not really spoken since they arrived at the hospital. Patient does open her eyes and looks at her daughter when she talks to them but does not respond verbally. Patient's daughter said that the patient had a difficult time swallowing her pills the night of 11/25/19. Patient is moving her arms around and does pull both her right and left legs up bending at the knees even though it hurts her right leg. Patient's daughter states that patient does not have an advance directive or a medical power of real estate attorney and that they will all have to talk about it. No edema noted to right leg and pedal pulses normal in bilateral feet. Cap refill less than 3 seconds.
--- NOTE | 2019-11-26 21:29 | PM.HP ---
Providers/Chief Complaint Admitting Physician: Sita Cat MD Primary Care Provider: RASHMI Grove Chief Complaint: FALL/ R LEG INJURY/ FACIAL DROOP/ SLURRED SPEECH History of Present Illness Milagro Salcedo is a 84 year old female Who lives at home with her . She has dementia. History is obtained from her daughter. Over the last year or so patient's dementia has progressively worsened. Over the last few months she is began having increasing difficulty with weakness and getting around though she still tries. She has had multiple falls over the last few months. In the last week or so this has increased. She was seen by primary care provider in the clinic recently with arrangements to get some home health because of the increasing falls. She had been seen in the emergency room a couple of days ago. Previous time she has not sustained an injury. Today, her went to the bathroom and when he came back patient had fallen on the floor in the living room. She fell onto a carpeted surface, landing on her right hip. She was ultimately found to have hip fracture. She is being admitted to the hospitalist service with orthopedic consultation for surgical intervention. During this time, patient also had some episodes of slurred speech. CT of the head did not show any acute abnormalities. This seems to have resolved. No recent fevers. She has chronic urinary incontinence but no reports of any diarrhea. No other symptoms to speak of. I will note that 1 of her 4 children stays at the home overnight while patient's , who is 89, cares for her during the day generally. Review of Systems General: Reports: ROS unobtainable due to mental status (Information here obtained from the daughter) Const: Reports: change in appetite and fatigue; Denies: fever or chills Resp: Denies: productive cough GI: Reports: abdominal pain; Denies: vomiting : Reports: urinary incontinence Musc: Reports: extremity pain (right hip) Neuro: Reports: difficulty walking (Shuffling gait), frequent falls, confusion and slurred speech Psych: Reports: memory loss Medications/Allergies Allergies Allergy/AdvReac Type Severity Reaction Status Date / Time atorvastatin [From Lipitor] Allergy ADR-Cramping Verified 11/26/19 17:49 of the Muscles Penicillins Allergy ALGY-Rash Verified 11/26/19 17:49 simvastatin [From Zocor] Allergy ADR-Cramping Verified 11/26/19 17:49 of the Muscles Sulfa (Sulfonamide Allergy ALGY-Rash Verified 11/26/19 17:49 Antibiotics) Additional Medication Information Additional Medication Information: Home Medications Medication Instructions Recorded Confirmed Type citalopram 10 mg tablet 10 mg PO DAILY 11/22/19 11/26/19 History donepezil 10 mg tablet 10 mg PO BEDTIME 11/22/19 11/26/19 History gabapentin 300 mg capsule 600 mg PO BID cap 11/22/19 11/26/19 History isosorbide mononitrate 60 mg 60 mg PO QAM 11/22/19 11/26/19 History tablet,extended release 24 hr ketoconazole 2 % topical cream 1 applic TOPICAL BID 11/22/19 11/26/19 History naproxen 500 mg tablet 500 mg PO BID PRN 11/22/19 11/26/19 History trazodone 50 mg tablet 25 mg PO BEDTIME tab 11/22/19 11/26/19 History PFSH Acute PFSH: Medical History CAD (coronary artery disease) Dementia Diabetes mellitus diet controlled to date Hyperlipemia Hypertension Muscle wasting and atrophy, not elsewhere classified, multiple sites Osteoarthritis Surgical History History of colon resection History of coronary artery stent placement Hx of appendectomy Hx of hysterectomy Family History Family/Other Hypertension Heart disease Dementia CAD (coronary artery disease) Hyperlipidemia Social History Smoking and tobacco status: never smoked Second hand smoke exposure: No Alcohol intake: never Lives independently: Yes Household members: spouse and other Details: children rotate staying at night Housing: House Marital status: Current occupational status: retired History of recent travel: No Current gender identity: Female Vitals/I&O/Wt Last Vital Signs Pulse 59 L 11/26/19 18:02 Resp 14 11/26/19 19:45 BP 112/46 11/26/19 19:58 Pulse Ox 95 11/26/19 19:45 Physical Exam Const: OTHER: Currently sedate HENMT: COMMON NORMALS: normocephalic, head/scalp atraumatic and moist oral mucous membranes Eye: COMMON NORMALS: PERRL and EOMs intact bilaterally GENERAL EYE: other (Patient initially appeared to not be able to see, but after waking up for a bit was smiling at her daughter) Neck/C-Spine: COMMON NORMALS: supple Resp: COMMON NORMALS: normal respiratory effort, no use of accessory muscles and clear to auscultation bilaterally Cardio: COMMON NORMALS: regular rate, regular rhythm and no murmurs GI: COMMON NORMALS: normal to inspection, nondistended, normoactive bowel sounds and soft to palpation PALPATION: Yes tender Details: LLQ, No guarding and No rebound tenderness present : COMMON NORMALS: Yes external appearance normal BLADDER/KIDNEY EXAM: Yes catheter in place Catheter type (Female): urethral Back/Pelvis: COMMON NORMALS: no CVA tenderness Extremity: NARRATIVE EXTREMITY EXAM: Right lower extremity is externally rotated and shortened. Patient is keeping it flexed at the hip and the knee. Brisk capillary refill and 2+ pulses bilaterally. No pitting edema Neuro: COMMON NORMALS: moves all extremities (Although decreased of right lower extremity); negative for oriented x3 OTHER: Patient woke up during my examination. Face was symmetric. Pupils were approximately 4 mm to 3 mm and reactive bilaterally. Patient however appeared to be staring into space and was not making any eye contact or following my gaze. Extraocular movements were grossly intact. She rubbed her eyes several times. I tried to check her visual acuity to confrontation with absolutely no response. She had equal corneal reflexes. It took a while but after I had her daughter take place that I was in, patient acknowledged her daughter's face with a big smile and then reached up to touch her daughter's face. I think that she was confused and came across looking like she might not be able to see. She gripped with both of her hands equally. Moves toes on right foot. Able to move the left lower extremity without difficulty. She did not speak while I was in the room. Skin: COMMON NORMALS: no rashes or lesions noted Data : 11/26/19 17:50 11/26/19 17:50 A&P Assessment and plan (1) Fall: At home in the living room resulting in hip fracture Status: Acute Qualifiers: Encounter type: initial encounter Qualified Code(s): W19.XXXA - Unspecified fall, initial encounter Code(s): W19.XXXA - Unspecified fall, initial encounter (2) Closed intertrochanteric fracture of right hip: Initial encounter Status: Acute Qualifiers: Encounter type: initial encounter Fracture alignment: nondisplaced Qualified Code(s): S72.144A - Nondisplaced intertrochanteric fracture of right femur, initial encounter for closed fracture Code(s): S72.141A - Displaced intertrochanteric fracture of right femur, initial encounter for closed fracture (3) Acute hyperglycemia: In a patient with known diabetes who has been diet controlled. Her sugars have been a little high at times but not like it has been this week. Status: Acute Code(s): R73.9 - Hyperglycemia, unspecified (4) Frequent falls: Progressively worsening over the last weeks Status: Acute Code(s): R29.6 - Repeated falls (5) Diverticulitis: Recent diagnosis for which patient is currently on Cipro and Flagyl Status: Acute Code(s): K57.92 - Diverticulitis of intestine, part unspecified, without perforation or abscess without bleeding (6) Hypertension: Status: Acute Qualifiers: Hypertension type: essential hypertension Qualified Code(s): I10 - Essential (primary) hypertension Code(s): I10 - Essential (primary) hypertension (7) Dementia: Status: Acute Qualifiers: Dementia type: unspecified type Dementia behavioral disturbance: without behavioral disturbance Qualified Code(s): F03.90 - Unspecified dementia without behavioral disturbance Code(s): F03.90 - Unspecified dementia without behavioral disturbance (8) CAD (coronary artery disease): Status: Acute Qualifiers: Coronary Disease-Associated Artery/Lesion type: [place] artery [place] vs. transplanted heart: [place] heart Associated angina: without angina Qualified Code(s): I25.10 - Atherosclerotic heart disease of [place] coronary artery without angina pectoris Code(s): I25.10 - Atherosclerotic heart disease of [place] coronary artery without angina pectoris Additional A&P Information Inpatient admission Dr. Buchanan to see for surgical evaluation From a preoperative standpoint we will check troponin and BNP just to have baseline but I do not believe we need to do any other cardiac testing. I reviewed potential risk of surgery including heart attack, stroke, infection, , bleeding, increased confusion among others with patient's daughter who is here. Patient has had decline over the last weeks to months. I reviewed that after having a hip fracture sometimes that decline will escalate even more depending on how she does. Daughter was understanding of this and does wish to proceed with surgical repair. We will continue on Cipro and Flagyl for the clinical diagnosis of diverticulitis to complete the course Continue half dose of usual isosorbide, full dose of usual metoprolol Continue patient Cipro, Aricept, gabapentin and Neurontin Other home medications as ordered Sliding scale insulin for diabetes I have ordered a low-dose of Levemir in this patient who is insulin na?ve but I expect we will need to go up on it. Insulin will probably be the best alternative when patient is discharged as well. Miller catheter currently but will need to remove as soon as able postoperatively SCDs for DVT prophylaxis currently, will hold any pharmacological DVT prophylaxis until we know that patient is or is not going to surgery tomorrow Supportive care otherwise Plans were discussed with patient's daughter who was given an opportunity to ask questions I did discuss discharge planning with the daughter. Given patient's dementia she may do better at home but it would require family to be able to care for her. She will discuss with her siblings. All of them spend the night at their parents house on a rotating basis already and it is possible that they may be able to provide more care so that patient could go back home. They understand that some of it will also depend on how patient does after surgery in terms of getting around and how much help she will actually need. The daughter assures that an open mind will be kept in this regard. Attestations Medical Necessity Statement*: Anticipated stay greater than 2 midnights in the patient with a fall and development of hip fracture. She will require surgical repair. Other medical history is as noted above. Coding Level of Care Code Acute Senior Compensation Analyst for Zahra Helms Diagnoses Fall W19.XXXA Encounter type: initial encounter Closed intertrochanteric fracture of right hip S72.144A Encounter type: initial encounter Fracture alignment: nondisplaced Acute hyperglycemia R73.9 Frequent falls R29.6 Diverticulitis K57.92 Hypertension I10 Hypertension type: essential hypertension Dementia F03.90 Dementia type: unspecified type Dementia behavioral disturbance: without behavioral disturbance CAD (coronary artery disease) I25.10 Coronary Disease-Associated Artery/Lesion type: [place] artery [place] vs. transplanted heart: [place] heart Associated angina: without angina
--- NOTE | 2019-11-26 21:38 | PC.NURSE ---
Spoke with Vito HARP in the emergency room at this time. Vito states that he did not give the patient any medications. Vito states, I received reported on her and 15 minutes later I call report to Marcy HARP. Vito is not sure if anyone else gave it. Dr. Cat notified.
[2019-11-26] MEDS: metoprolol tartrate 1 mg/1 mL SDV 5 mL 2.5 MG IV (23:06)
[2019-11-26 23:13] LABS: Glucose Point of Care 365 mg/dL (70-110)
[2019-11-26] MEDS: HYDROmorphone 1 mg/mL INJ 1 mL 0.5 MG IVP (23:52)
[2019-11-27] VITALS (11 sets, daily range): BP systolic 128–165; BP diastolic 67–96; PULSE 74–93; RESP 16–18; TEMP 36.6–37.3; O2SAT 92–94
[2019-11-27] MEDS: D5-NS 0.45% + KCL 20 mEq 20 MEQ/1,000 ML BAG 75 MEQ IV ×2 (00:11→11:50)
[2019-11-27 00:20] LABS: NT Pro B Type Natriuretic Pept 270 pg/mL (0-450)
[2019-11-27 00:43] LABS: Troponin T (5th) Once 15 ng/mL (0-10)
[2019-11-27] MEDS: HYDROmorphone 1 mg/mL INJ 1 mL 0.5 MG IVP ×3 (03:40→19:51)
[2019-11-27 05:19] LABS: Basophils % 0.3 %; Hematocrit 38.8 % (37.0-47.0); Hemoglobin 12.7 g/dL (11.5-15.3); Lymphocytes % 8.1 %; Mean Corpuscular HGB Conc 32.7 g/dL (30.0-36.0); Mean Corpuscular Hemoglobin 30.4 pg (28.0-34.0); Mean Corpuscular Volume 92.8 fL (81-99); Monocytes # 0.7 10^3/uL (0.2-0.9); Monocytes % 5.7 %; Neutrophils # 10.1 10^3/uL (1.8-7.7); Neutrophils % 85.6 %; Nucleated Red Blood Cells % 0 %; Platelet Count 300 10^3/cmm (130-400); Red Blood Count 4.18 10^6/uL (4.1-5.3); Red Cell Distribution Width 12.2 % (12.1-15.1); White Blood Count 11.8 10^3/uL (4.0-10.0)
--- NOTE | 2019-11-27 05:45 | PC.NURSE ---
NIHSS Patient opens her eyes but does not verbalize anything or follow commands. Patient has dementia.
[2019-11-27 05:47] LABS: Anion Gap 17.1 (5-19); Blood Urea Nitrogen 20 mg/dL (8-23); Calcium 9.4 mg/dL (8.5-10.5); Carbon Dioxide 25 mmol/L (22-29); Chloride 97 mmol/L (98-107); Glucose 439 mg/dL (65-115); Osmolality Calculated 295 mOsm/kg (285-295); Potassium 4.1 mmol/L (3.5-5.1); Sodium 135 mmol/L (136-145)
[2019-11-27 06:54] LABS: Glucose Point of Care 376 mg/dL (70-110)
--- NOTE | 2019-11-27 07:20 | PC.NURSE ---
I spoke with patient's daughter and she agreed not to give patient her morning IMdur because she is not sure she can swallow it and she is not following any commands. It would also cause the patient to much pain to sit her up using the bed.
[2019-11-27] MEDS: metoprolol tartrate 25 mg Tablet 12.5 MG PO ×2 (09:24→17:03)
[2019-11-27] MEDS: ketoconazole Cream 15 gm 1 APPLIC TOPICAL (09:35)
[2019-11-27 11:17] LABS: Glucose Point of Care 314 mg/dL (70-110)
--- NOTE | 2019-11-27 13:27 | P.CONIM_ITS ---
Providers/Reason For Consult Consulting Physican/Specialty*: Dr. Jacquie Buchanan?orthopedics Reason for Consult*: Right intratrochanteric and subtrochanteric hip fractures Requesting Physcian: Dr. Yeager?emergency department, Dr. Cat?hospitalist service Attending Physician: Donato Hayes MD Primary Care Provider: RASHMI Grove History of Present Illness History of Present Illness Milagro Salcedo is a 84 year old female who presented to the emergency department after a fall at home. The patient had a significant injury to her right hip, but also, she had had slurred speech and facial droop. The patient lives at home with her . She does suffer with dementia. The patient has had increasing difficulty with weakness and ambulating around the house. Reportedly, the patient had multiple falls over the past few months, and in the week prior to admission, this had increased. She had been seen by her primary care provider and home health arrangements were being made secondary to these falls. Prior to admission, the patient had fallen in the living room onto a carpeted surface and was seen in the emergency department. While in the department, she did have some episodes of slurred speech but the CT of the head was found to be unremarkable for acute findings. These issues resolved while in the emergency department as well. I was consulted as the patient had a very comminuted displaced intertrochanteric hip fracture with extension into the subtrochanteric area. Review of Systems General: Reports: ROS unobtainable due to mental status (The patient is demented. Outline is as noted above as well.) Const: Reports: change in appetite, fatigue and other (Dementia appears to have been worsening); Denies: fever or chills Resp: Denies: shortness of breath, productive cough or non-productive cough GI: Reports: abdominal pain : Reports: urinary incontinence Musc: Reports: extremity swelling (Right hip with any range of motion, and affects the entire right lower extremity) Neuro: Reports: difficulty walking (Normally, the patient walks with a shuffling gait), frequent falls, confusion (Which appears to been worsening recently) and slurred speech (Including while in the emergency department) Psych: Reports: memory loss (Significant) Meds/Allergies Home Medications and Allergies Home Medications Medication Instructions Recorded Confirmed Type citalopram 10 mg tablet 10 mg PO DAILY 11/22/19 11/26/19 History donepezil 10 mg tablet 10 mg PO BEDTIME 11/22/19 11/26/19 History gabapentin 300 mg capsule 600 mg PO BID cap 11/22/19 11/26/19 History isosorbide mononitrate 60 mg 60 mg PO QAM 11/22/19 11/26/19 History tablet,extended release 24 hr ketoconazole 2 % topical cream 1 applic TOPICAL BID 11/22/19 11/26/19 History naproxen 500 mg tablet 500 mg PO BID PRN 11/22/19 11/26/19 History trazodone 50 mg tablet 25 mg PO BEDTIME tab 11/22/19 11/26/19 History Allergies Allergy/AdvReac Type Severity Reaction Status Date / Time atorvastatin [From Lipitor] Allergy ADR-Cramping Verified 11/26/19 17:49 of the Muscles Penicillins Allergy ALGY-Rash Verified 11/26/19 17:49 simvastatin [From Zocor] Allergy ADR-Cramping Verified 11/26/19 17:49 of the Muscles Sulfa (Sulfonamide Allergy ALGY-Rash Verified 11/26/19 17:49 Antibiotics) Current Medications Current Medications Generic Name Dose Route Start Last Admin Trade Name Freq PRN Reason Stop Dose Admin Ciprofloxacin HCl 500 mg 11/27/19 09:00 11/27/19 09:38 Cipro PO Not Given BID [facility] Protocol Citalopram Hydrobromide 10 mg 11/27/19 09:00 11/27/19 09:38 Celexa PO Not Given DAILY [facility] Docusate Sodium 100 mg 11/27/19 09:00 11/27/19 09:38 Colace PO Not Given BID [facility] Donepezil HCl 10 mg 11/27/19 09:00 11/27/19 09:38 Aricept PO Not Given DAILY [facility] Gabapentin 600 mg 11/27/19 09:00 11/27/19 09:38 Neurontin PO Not Given BID [facility] Hydromorphone HCl 0.5 mg 11/26/19 23:28 11/27/19 09:18 Dilaudid Inj IVP 0.5 mg Q4H PRN Administration SEVERE [facility]IN Potassium Chloride/Dextrose/Sod Cl 20 meq in 1,000 mls @ 75 mls/hr 11/26/19 23:30 11/27/19 11:50 D5-Ns 0.45% + Kcl 20 Meq IV 75 mls/hr .[id number] LANG Administration Insulin Aspart 0 unit 11/27/19 08:00 11/27/19 11:49 Novolog SUBCUT 10 unit TIDWM LANG Administration Protocol Isosorbide Mononitrate 30 mg 11/27/19 06:00 11/27/19 07:50 Imdur PO Not Given QAM LANG Ketoconazole 1 applic 11/27/19 09:00 11/27/19 09:35 Nizoral Cream TOPICAL 1 applic BID LANG Administration Metoprolol Tartrate 12.5 mg 11/27/19 09:00 11/27/19 09:24 Lopressor PO 12.5 mg BID LANG Administration Metronidazole 250 mg 11/27/19 09:00 11/27/19 11:51 Flagyl Tab PO Not Given QID LANG PFSH Acute PFSH: Medical History CAD (coronary artery disease) Dementia Diabetes mellitus diet controlled to date Hyperlipemia Hypertension Muscle wasting and atrophy, not elsewhere classified, multiple sites Osteoarthritis Surgical History History of colon resection History of coronary artery stent placement Hx of appendectomy Hx of hysterectomy Family History Family/Other Hypertension Heart disease Dementia CAD (coronary artery disease) Hyperlipidemia Social History Smoking and tobacco status: never smoked Second hand smoke exposure: No Alcohol intake: never Lives independently: Yes Household members: spouse and other Details: children rotate staying at night Housing: House Marital status: Current occupational status: retired History of recent travel: No Current gender identity: Female Vitals/I&O/Wt Last Vital Signs Temp 97.9 F 11/27/19 11:21 Pulse 82 11/27/19 11:21 Resp 16 11/27/19 11:21 BP 128/68 11/27/19 11:21 Pulse Ox 92 11/27/19 11:21 11/26/19 11/27/19 11/27/19 22:59 06:59 14:59 Intake Total 873.75 / 873.75 Output Total 840 / 840 Balance -840 / -840 873.75 / 873.75 Weight last 48 hrs Weight 127 lb 1.6 oz Physical Exam Narrative: EXAM NARRATIVE: The patient is sedated, and therefore, she is not communicating verbally. Const: COMMON NORMALS: no apparent distress and average body habitus; negative for oriented x3 GENERAL APPEARANCE: comfortable and well kempt HENMT: COMMON NORMALS: normocephalic and head/scalp atraumatic HEAD & SCALP : normocephalic and atraumatic Eye: GENERAL EYE: normal appearance of both eyes Chest: COMMONS NORMALS: inspection of chest normal Resp: COMMON NORMALS: normal respiratory effort EFFORT & INSPECTION: No abnormal respiratory pattern and No tachypneic Extremity: RIGHT LOWER EXTREMITY: Yes hip joint (Right lower extremity is externally rotated and significantly shortened.) Right hip: Yes inspection (There is pain with any attempted movement of the hip.), Yes palpation (Light touch on the leg causes discomfort.), Yes ROM (This is not tested due to fracture.) and Yes neurovascular exam (Vascular status appears intact. There is no significant edema.) Neuro: COMMON NORMALS: moves all extremities (But is resistant to move the right lower extremity); negative for oriented x3 SENSORIUM/ORIENTATION: Yes other (The patient was nonverbal while I was in the room.) Psych: COMMON NORMALS: negative for mental status grossly normal A PPEARANCE: Yes well kempt ATTITUDE: Yes calm and No engaged ATTENTION/CONC ENTRATION: Yes attention grossly impaired and Yes concentration grossly impaired MEMORY/COGNITION: Yes memory grossly impaired and Yes cognition grossly impaired Skin: COMMON NORMALS: no rashes or lesions noted GENERAL SKIN EXAM: no rashes or lesions noted Urinary Catheter Management^: Miller: Cath Placed During This Visit: yes Urethral Indwelling: Yes Reason for Continuing Indwelling Catheter: Required Immobilization for Trauma or Surgery or Anesthesia Urinary Catheter Date of Insertion: 11/27/19 Urinary Catheter Time of Insertion: 18:30 Data Imaging^: Xray Ortho: I personally reviewed and interpreted this imaging study as follows: My impression: The patient's AP pelvis and hip images demonstrate that she has a comminuted fracture involving the intertrochanteric hip area, but does extend significantly into the subtrochanteric area as well. There is shortening and displacement at the fracture site. A&P Assessment and plan (1) Subtrochanteric fracture of right femur: The patient has a subtrochanteric fracture which is comminuted and extends into the intertrochanteric area. This will require open reduction internal fixation with a long trochanteric nail. The patient had some medical issues upon presentation to the emergency department. These will be evaluated today by the medical service and we will plan surgical intervention tomorrow morning, November 27, provided that there are no issues which occur during the patient's hospitalization today. Status: Acute Code(s): S72.21XA - Displaced subtrochanteric fracture of right femur, initial encounter for closed fracture (2) Closed intertrochanteric fracture of right hip: Status: Acute Qualifiers: Encounter type: initial encounter Fracture alignment: nondisplaced Qualified Code(s): S72.144A - Nondisplaced intertrochanteric fracture of right femur, initial encounter for closed fracture Code(s): S72.141A - Displaced intertrochanteric fracture of right femur, initial encounter for closed fracture (3) Frequent falls: Status: Acute Code(s): R29.6 - Repeated falls Consult Attestations Medical Necessity Statement: Per hospitalist service Coding Level of Care Code Acute Mechanotherapist for Chg Fwd Exam Comprehensive Diagnoses Subtrochanteric fracture of right femur S72.21XA Closed intertrochanteric fracture of right hip S72.144A Encounter type: initial encounter Fracture alignment: nondisplaced Frequent falls R29.6 Comment Initial evaluation and decision for surgery.
[2019-11-27 14:32] LABS: Glucose Point of Care 94 mg/dL (70-110)
[2019-11-27] MEDS: gabapentin 300 mg Capsule 600 MG PO (17:05)
[2019-11-27 17:29] LABS: Glucose Point of Care 129 mg/dL (70-110)
--- NOTE | 2019-11-27 17:47 | PM.PN ---
Subjective Subjective: Interval history: Admitted overnight. H&P and labs noted. Overnight blood sugars have remained more than 400. On evaluation today morning patient is lying comfortably in bed with daughters at bedside. No nausea, vomiting, pain well controlled. As per the daughter's patient has had a history of type 2 diabetes mellitus for which she is been off treatment for more than 3 years. Vitals/I&O/Wt Last Vital Signs Temp 98.4 F 11/27/19 15:51 Pulse 84 11/27/19 15:51 Resp 16 11/27/19 15:51 BP 148/67 11/27/19 15:51 Pulse Ox 93 11/27/19 15:51 11/27/19 11/27/19 11/27/19 06:59 14:59 22:59 Intake Total 1113.75 / 1113.75 Output Total 840 / 840 450 / 450 Balance -840 / -840 1113.75 / 1113.75 -450 / 663.75 Weight last 48 hrs Weight 57.652 kg Physical Exam Narrative: EXAM NARRATIVE: General: No acute distress, AO x1, at her baseline. HEENT: PERRLA, pupils bilaterally equal and reactive Chest: Normal vesicular breath sounds, no added sounds, equal good air entry bilaterally CVS: S1-S2 regular, no murmurs, no tachycardia, no gallops, no rubs Abdomen: Soft, nontender, no organomegaly, bowel sounds present Neuro: No focal deficits, no facial deformity, AO x3, power 5/5 in all limbs Urinary Catheter Management^: Miller: Cath Placed During This Visit: yes Urethral Indwelling: Yes Reason for Continuing Indwelling Catheter: Required Immobilization for Trauma or Surgery or Anesthesia Urinary Catheter Date of Insertion: 11/27/19 Urinary Catheter Time of Insertion: 18:30 Data : 11/27/19 04:21 11/27/19 04:21 A&P Assessment and plan (1) Fall: At home in the living room resulting in hip fracture Status: Acute Qualifiers: Encounter type: initial encounter Qualified Code(s): W19.XXXA - Unspecified fall, initial encounter Code(s): W19.XXXA - Unspecified fall, initial encounter (2) Closed intertrochanteric fracture of right hip: Initial encounter Status: Acute Qualifiers: Encounter type: initial encounter Fracture alignment: nondisplaced Qualified Code(s): S72.144A - Nondisplaced intertrochanteric fracture of right femur, initial encounter for closed fracture Code(s): S72.141A - Displaced intertrochanteric fracture of right femur, initial encounter for closed fracture (3) Acute hyperglycemia: Status: Acute Code(s): R73.9 - Hyperglycemia, unspecified (4) Frequent falls: Progressively worsening over the last weeks Status: Acute Code(s): R29.6 - Repeated falls (5) Diverticulitis: Recent diagnosis for which patient is currently on Cipro and Flagyl Status: Acute Code(s): K57.92 - Diverticulitis of intestine, part unspecified, without perforation or abscess without bleeding (6) Hypertension: Status: Acute Qualifiers: Hypertension type: essential hypertension Qualified Code(s): I10 - Essential (primary) hypertension Code(s): I10 - Essential (primary) hypertension (7) Dementia: Status: Acute Qualifiers: Dementia type: unspecified type Dementia behavioral disturbance: without behavioral disturbance Qualified Code(s): F03.90 - Unspecified dementia without behavioral disturbance Code(s): F03.90 - Unspecified dementia without behavioral disturbance (8) CAD (coronary artery disease): Status: Acute Qualifiers: Coronary Disease-Associated Artery/Lesion type: [place] artery [place] vs. transplanted heart: [place] heart Associated angina: without angina Qualified Code(s): I25.10 - Atherosclerotic heart disease of [place] coronary artery without angina pectoris Code(s): I25.10 - Atherosclerotic heart disease of [place] coronary artery without angina pectoris Additional A&P Information Hip fracture: Dr. Buchanan consulted. Plan for OR tomorrow morning. Traction as per Dr. Buchanan. PT OT evaluation postop. Perioperative antibiotics as per Dr. Buchanan. Pain well controlled at current regimen. Will continue. Type 2 diabetes mellitus: Patient has not been on treatment for more than 3 years. Blood sugar severely elevated. Anion gap normal. Check HbA1c. Continue insulin sliding scale at low dose. Repeat blood sugar right now 94 so we will hold off on transfer to ICU for insulin drip. Change fluid to NS @ 75 cc/hr from D51/2 NS HTN: Continue monitor blood pressures. Patient was switched over to half dose of Imdur. Continue at home dose of Lopressor for now. Continue chronic medications like Aricept, gabapentin, trazodone at bedtime As patient is not going to the OR today we will give her Lovenox today. Carb consistent diet. Discussed with daughters in detail regarding CODE STATUS. They state she is DNR/DNI. Patient will most likely need placement to SNF. Care coordination consulted. Family is agreeable to placement at SNF. Attestations Medical Necessity Statement*: Hip fracture Time Spent in Patient Care: Greater than 35 minutes Coding Level of Care Code Acute [place] for Chg Fwd Diagnoses Fall W19.XXXA Encounter type: initial encounter Closed intertrochanteric fracture of right hip S72.144A Encounter type: initial encounter Fracture alignment: nondisplaced Acute hyperglycemia R73.9 Frequent falls R29.6 Diverticulitis K57.92 Hypertension I10 Hypertension type: essential hypertension Dementia F03.90 Dementia type: unspecified type Dementia behavioral disturbance: without behavioral disturbance CAD (coronary artery disease) I25.10 Coronary Disease-Associated Artery/Lesion type: [place] artery [place] vs. transplanted heart: [place] heart Associated angina: without angina
[2019-11-27] MEDS: enoxaparin 30 mg/0.3 mL Syringe SUBCUT (18:04)
[2019-11-27] MEDS: sodium chloride 0.9% 1,000 ML 75 ML IV (18:05)
[2019-11-27 21:25] LABS: Glucose Point of Care 245 mg/dL (70-110)
--- NOTE | 2019-11-27 22:10 | PC.CHAP ---
Pastoral Care Encounter/Spiritual Assessment Type of Contact [] Declined feed blender visit [] Patient/Family/Request visit [] Outpatient visit [] Follow-up visit [] Physician referral [] Code/Alert [] Routine visit [] Staff referral [] Actively dying [X] Patient sleeping [] Family support [] [] Out of room [] Palliative care [] [] Receiving care in room [] Pre-surgical visit [] Trauma [] Long length of stay [] ICU visit [] Other: Relational/Emotional Strength [] Patient feels connected with others/family/visitors/staff [] Distress [] Loneliness/isolation [] Abandonment Spirituality of Patient [] Person of Kelly [] Attends Episcopal of their Kelly [] Believes in Prayer [] Reads Bible or Pentecostal materials [] There are Spiritual issues to be addressed Gear Hobber Operator Interventions [X] Prayer [] Active listening [] Non-anxious presence [] Spiritual/emotional support [] Crisis/trauma care [] Spiritual counseling [] Bereavement support [] Provided bereavement packet [] Provided Bible/devotional materials [] Provided toy/stuffed animal, coloring book to patient or family member [] Provided Communion [] Anointing/[place] [] Salvation [] Completed spiritual assessment [] Other: Impact on Illness or Injury [] Angry [] Fearful [] Anxious [] Often cries [] Exhaustion [] Unable to work [] Unable to attend adventism [] Unable to walk/stand [] Unable to read [] Unable to drive [] Unable to eat/drink [] Unable to sleep [] Unable to be with family [] Patient intubated [] Other: Summary HAD PRAYER WITH WHOLE FAMILY, SIX TOTAL VISITORS Time spent with patient
[2019-11-27 23:47] LABS: Glucose Point of Care 165 mg/dL (70-110)
[2019-11-28] VITALS (23 sets, daily range): BP systolic 112–221; BP diastolic 62–104; PULSE 68–89; RESP 12–22; TEMP 36.4–37.2; O2SAT 90–100
--- NOTE | 2019-11-28 | XR_ITS ---
WS: [id number] XR hip RT 2-3V wo/w pel* [id number] REASON FOR EXAM: FX REPAIR FINDINGS: Intraoperative insertion of prosthesis and barajas pin through the femur 2 projections were ex posed they appear to be satisfactory alignment. XR/XR hip RT 2-3V wo/w pel* [id number] IMPRESSION: Interoperative repair fracture of the proximal femur
--- NOTE | 2019-11-28 | SCC_ITS ---
Procedure Done: Open reduction internal fixation right intertrochanteric and subtrochanteric hip fracture with [place] gamma 3 long trochanteric nail size 11 mm x 360 mm x 125 degrees with a proximal 10 mm x 90 mm lag screw and a distal fully locking screw size 5 mm x 40 mm 249.2 seconds of fluoroscopic guidance, for a cumulative dose of 11.39 mGy, was provided to Dr. Buchanan by the radiology department. C-arm images of the RIGHT hip were saved for the patient's permanent record. KAREN
[2019-11-28] MEDS: HYDROmorphone 1 mg/mL INJ 1 mL 0.5 MG IVP ×3 (02:30→11:50)
[2019-11-28 04:45] LABS: Glucose Point of Care 197 mg/dL (70-110)
[2019-11-28] MEDS: sodium chloride 0.9% 1,000 ML 75 ML IV ×3 (05:41→21:11)
[2019-11-28 05:54] LABS: Basophils # 0.1 10^3/uL (0.0-0.1); Basophils % 0.8 %; Eosinophils # 0.1 10^3/uL (0.0-0.8); Eosinophils % 0.8 %; Hematocrit 36.4 % (37.0-47.0); Hemoglobin 11.7 g/dL (11.5-15.3); Lymphocytes # 1.8 10^3/uL (0.8-4.8); Lymphocytes % 20.4 %; Mean Corpuscular HGB Conc 32.1 g/dL (30.0-36.0); Mean Corpuscular Hemoglobin 29.3 pg (28.0-34.0); Mean Corpuscular Volume 91.2 fL (81-99); Mean Platelet Volume 11.1 fL (7.4-10.4); Monocytes # 0.8 10^3/uL (0.2-0.9); Neutrophils % 68.7 %; Nucleated Red Blood Cells % 0 %; Platelet Count 240 10^3/cmm (130-400); Red Blood Count 3.99 10^6/uL (4.1-5.3); Red Cell Distribution Width 12.2 % (12.1-15.1); White Blood Count 8.8 10^3/uL (4.0-10.0)
[2019-11-28 06:26] LABS: Alanine Aminotransferase 8 U/L (0-33); Albumin Level 3.5 g/dL (3.5-5.2); Alkaline Phosphatase 96 IU/L (35-105); Anion Gap 11.7 (5-19); Aspartate Amino Transferase 17 U/L (0-32); Blood Urea Nitrogen 21 mg/dL (8-23); Calcium 9.3 mg/dL (8.5-10.5); Carbon Dioxide 25 mmol/L (22-29); Chloride 102 mmol/L (98-107); Globulin 2.7 g/dL (1.3-4.6); Glucose 209 mg/dL (65-115); Potassium 3.7 mmol/L (3.5-5.1); Sodium 135 mmol/L (136-145); Total Protein 6.2 g/dL (6.6-8.7)
[2019-11-28 07:58] LABS: Glucose Point of Care 189 mg/dL (70-110)
[2019-11-28] MEDS: metoprolol tartrate 25 mg Tablet 12.5 MG PO ×2 (08:36→18:11)
[2019-11-28] MEDS: citalopram 20 mg Tablet 10 MG PO (08:37)
[2019-11-28 11:51] LABS: Glucose Point of Care 197 mg/dL (70-110)
--- NOTE | 2019-11-28 11:52 | P.ANESASSM_ITS ---
Pre-Anesthetic Assessment Pre-Anesthetic Assessment: Height/Weight: Height 1.6 m Weight 57.652 kg Temp Pulse Resp BP Pulse Ox 97.9 F 68 20 H 189/74 93 11/28/19 11:07 11/28/19 11:07 11/28/19 11:07 11/28/19 11:07 11/28/19 11:07 Preop Diagnosis: Right hip fx Proposed Procedure: Operation Date: 11/28/19 15:00 Proposed Procedures p Trochanteric Femoral Nail(Not Applicable) - Jacquie Buchanan MD Was Beta Ivonne taken within 24 hours: Yes Last intake: Intake Last Liquid Date 11/27/19 Last Liquid Time 19:00 Last Solid Date 11/27/19 Last Solid Time 19:00 Exam: Pre-Anes Outpt Exam: alert Additional Exam Findings (including area of procedure): oritented x 0, awake, responsive Airway: Submandibular: WNL Cervical ROM: WNL MP: 1 CV/HEM: CV/HEM: CAD and HTN Comments: s/p stent '13 Metabolic: Metabolic: Hyperlipidemia Musc/skel: Comments: muscle atrophy Neuropsych: Neuropsych: Dementia Anesthetic Plan: ASA status: 4 Anesthesia: General Meds/Allergies Current Medications: Current Medications Generic Name Dose Route Start Last Admin Trade Name Freq PRN Reason Stop Dose Admin Ciprofloxacin HCl 500 mg 11/27/19 09:00 11/28/19 08:48 Cipro PO Not Given BID [facility] Protocol Citalopram Hydrobr omide 10 mg 11/27/19 09:00 11/28/19 08:37 Celexa PO 10 mg DAILY LNAG Administration Docusate Sodium 100 mg 11/27/19 09:00 11/28/19 08:49 Colace PO Not Given BID LANG Donepezil HCl 10 mg 11/27/19 09:00 11/28/19 08:48 Aricept PO Not Given DAILY LANG Gabapentin 600 mg 11/27/19 09:00 11/28/19 08:48 Neurontin PO Not Given BID LANG Hydromorphone HCl 0.5 mg 11/26/19 23:28 11/28/19 07:05 Dilaudid Inj IVP 0.5 mg Q4H PRN Administration SEVERE PAIN Sodium Chloride 1,000 mls @ 75 ml s/hr 11/27/19 18:00 11/28/19 05:41 Sodium Chloride 0.9% IV 75 mls/hr .[id number] LANG Administration Insulin Aspart 0 unit 11/27/19 21:00 11/27/19 19:58 Novolog SUBCUT 3 unit BEDTIME LANG Administration Protocol Insulin Aspart 0 unit 11/27/19 08:00 11/28/19 08:36 Novolog SUBCUT 4 unit TIDWM [facility] Administration Protocol Insulin Detemir 4 unit 11/27/19 21:00 11/27/19 19:59 Levemir SUBCUT 4 unit BEDTIME [facility] Administration Isosorbide Mononit rate 30 mg 11/27/19 06:00 11/28/19 08:48 Imdur PO Not Given QAM [facility] Ketoconazole 1 applic 11/27/19 09:00 11/28/19 10:20 Nizoral Cream TOPICAL Not Given BID [facility] Metoprolol Tartrat e 12.5 mg 11/27/19 09:00 11/28/19 08:36 Lopressor PO 12.5 mg BID [facility] Administration Metronidazole 250 mg 11/27/19 09:00 11/28/19 08:49 Flagyl Tab PO Not Given QID [facility] Additional Medication Information: Home Medications Medication Instructions Recorded Confirmed Type citalopram 10 mg t ablet 10 mg PO DAILY 11/22/19 11/26/19 History donepezil 10 mg ta blet 10 mg PO BEDTIME 11/22/19 11/26/19 History gabapentin 300 mg capsule 600 mg PO BID cap 11/22/19 11/26/19 History isosorbide mononit rate 60 mg 60 mg PO QAM 11/22/19 11/26/19 History tablet,extended re lease 24 hr ketoconazole 2 % t opical cream 1 applic TOPICAL B ID 11/22/19 11/26/19 History naproxen 500 mg ta blet 500 mg PO BID PRN 11/22/19 11/26/19 History trazodone 50 mg ta blet 25 mg PO BEDTIME tab 11/22/19 11/26/19 History PFSH Anesthesia PFSH: Medical History CAD (coronary artery disease) Dementia Diabetes mellitus diet controlled to date Hyperlipemia Hypertension Muscle wasting and atrophy, not elsewhere classified, multiple sites Osteoarthritis Surgical History History of colon resection History of coronary artery stent placement Hx of appendectomy Hx of hysterectomy Family History Family/Other Hypertension Heart disease Dementia CAD (coronary artery disease) Hyperlipidemia Social History Smoking and tobacco status: never smoked Second hand smoke exposure: No Alcohol intake: never Lives independently: Yes Household members: spouse and other Details: children rotate staying at night Housing: House Marital status: Current occupational status: retired History of recent travel: No Current gender identity: Female Data Anesthesia CBC & Chem 7: 11/28/19 05:26 11/28/19 05:26 Other Labs: Laboratory Results - last 48 hr 11/26/19 11/26/19 11/26/19 17:46 17:50 17:50 WBC 7.0 RBC 4.61 Hgb 13.5 Hct 42.0 MCV 91.1 MCH 29.3 MCHC 32.1 RDW 12.2 Plt Count 336 MPV 11.0 H Neut % (Auto) 58.3 Lymph % (Auto) 30.1 [place] % (Auto) 8.0 Eos % (Auto) 2.1 Baso % (Auto) 1.1 Neut # (Auto) 4.1 Lymph # (Auto) 2.1 [place] # (Auto) 0.6 Eos # (Auto) 0.2 Baso # (Auto) 0.1 Nucleated RBC % (auto) 0 Nucleated RBCs # 0.0 PT 15.40 H INR 1.18 APTT 24.8 Sodium Potassium Chloride Carbon Dioxide Anion Gap BUN Creatinine Glucose POC Glucose 444 Calculated Osmolality Calcium Total Bilirubin AST ALT Alkaline Phosphatase Troponin T Gen 5 ng/L NT-Pro-B Natriuret Pep Total Protein Albumin Globulin Urine Color Urine Appearance Urine pH Ur Specific [place] Urine Protein Urine Glucose (UA) Urine Ketones Urine Blood Urine Nitrate Urine Bilirubin Urine Urobilinogen Ur Leukocyte Esterase Urine Opiates Screen Ur Barbiturates Screen Ur Phencyclidine Scrn Ur Amphetamines Screen U Benzodiazepines Scrn Urine Cocaine Screen U Marijuana (THC) Screen 11/26/19 11/26/19 11/26/19 17:50 17:50 17:50 WBC RBC Hgb Hct MCV MCH MCHC RDW Plt Count MPV Neut % (Auto) Lymph % (Auto) [place] % (Auto) Eos % (Auto) Baso % (Auto) Neut # (Auto) Lymph # (Auto) [place] # (Auto) Eos # (Auto) Baso # (Auto) Nucleated RBC % (auto) Nucleated RBCs # PT INR APTT Sodium 132 L Potassium 3.9 Chloride 93 L Carbon Dioxide 26 Anion Gap 16.9 BUN 19 Creatinine 0.9 Glucose 489 H POC Glucose Calculated Osmolality Calcium 10.1 Total Bilirubin 0.5 AST 16 ALT 11 Alkaline Phosphatase 128 H Troponin T Gen 5 ng/L 15 H NT-Pro-B Natriuret Pep 270 Total Protein 6.5 L Albumin 3.8 Globulin 2.7 Urine Color Urine Appearance Urine pH Ur Specific [place] Urine Protein Urine Glucose (UA) Urine Ketones Urine Blood Urine Nitrate Urine Bilirubin Urine Urobilinogen Ur Leukocyte Esterase Urine Opiates Screen Ur Barbiturates Screen Ur Phencyclidine Scrn Ur Amphetamines Screen U Benzodiazepines Scrn Urine Cocaine Screen U Marijuana (THC) Screen 11/26/19 11/26/19 11/26/19 18:53 18:53 20:54 WBC RBC Hgb Hct MCV MCH MCHC RDW Plt Count MPV Neut % (Auto) Lymph % (Auto) [place] % (Auto) Eos % (Auto) Baso % (Auto) Neut # (Auto) Lymph # (Auto) [place] # (Auto) Eos # (Auto) Baso # (Auto) Nucleated RBC % (auto) Nucleated RBCs # PT INR APTT Sodium Potassium Chloride Carbon Dioxide Anion Gap BUN Creatinine Glucose POC Glucose 456 Calculated Osmolality Calcium Total Bilirubin AST ALT Alkaline Phosphatase Troponin T Gen 5 ng/L NT-Pro-B Natriuret Pep Total Protein Albumin Globulin Urine Color Yellow Urine Appearance Clear Urine pH 5 Ur Specific [place] 1.015 Urine Protein Neg Urine Glucose (UA) 4+ H Urine Ketones Negative Urine Blood Neg Urine Nitrate Negative Urine Bilirubin Neg Urine Urobilinogen 1 H Ur Leukocyte Esterase Negative Urine Opiates Screen Negative Ur Barbiturates Screen Negative Ur Phencyclidine Scrn Negative Ur Amphetamines Screen Negative U Benzodiazepines Scrn Negative Urine Cocaine Screen Negative U Marijuana (THC) Screen Negative 11/26/19 11/27/19 11/27/19 23:04 04:21 04:21 WBC 11.8 H RBC 4.18 Hgb 12.7 Hct 38.8 MCV 92.8 MCH 30.4 MCHC 32.7 RDW 12.2 Plt Count 300 MPV 11.0 H Neut % (Auto) 85.6 Lymph % (Auto) 8.1 [place] % (Auto) 5.7 Eos % (Auto) 0.0 Baso % (Auto) 0.3 Neut # (Auto) 10.1 H Lymph # (Auto) 1.0 [place] # (Auto) 0.7 Eos # (Auto) 0.0 Baso # (Auto) 0.0 Nucleated RBC % (auto) 0 Nucleated RBCs # 0.0 PT INR APTT Sodium 135 L Potassium 4.1 Chloride 97 L Carbon Dioxide 25 Anion Gap 17.1 BUN 20 Creatinine 0.7 Glucose 439 H POC Glucose 365 Calculated Osmolality 295 Calcium 9.4 Total Bilirubin AST ALT Alkaline Phosphatase Troponin T Gen 5 ng/L NT-Pro-B Natriuret Pep Total Protein Albumin Globulin Urine Color Urine Appearance Urine pH Ur Specific [place] Urine Protein Urine Glucose (UA) Urine Ketones Urine Blood Urine Nitrate Urine Bilirubin Urine Urobilinogen Ur Leukocyte Esterase Urine Opiates Screen Ur Barbiturates Screen Ur Phencyclidine Scrn Ur Amphetamines Screen U Benzodiazepines Scrn Urine Cocaine Screen U Marijuana (THC) Screen 11/27/19 11/27/19 11/27/19 06:35 10:41 14:29 WBC RBC Hgb Hct MCV MCH MCHC RDW Plt Count MPV Neut % (Auto) Lymph % (Auto) [place] % (Auto) Eos % (Auto) Baso % (Auto) Neut # (Auto) Lymph # (Auto) [place] # (Auto) Eos # (Auto) Baso # (Auto) Nucleated RBC % (auto) Nucleated RBCs # PT INR APTT Sodium Potassium Chloride Carbon Dioxide Anion Gap BUN Creatinine Glucose POC Glucose 376 314 94 Calculated Osmolality Calcium Total Bilirubin AST ALT Alkaline Phosphatase Troponin T Gen 5 ng/L NT-Pro-B Natriuret Pep Total Protein Albumin Globulin Urine Color Urine Appearance Urine pH Ur Specific [place] Urine Protein Urine Glucose (UA) Urine Ketones Urine Blood Urine Nitrate Urine Bilirubin Urine Urobilinogen Ur Leukocyte Esterase Urine Opiates Screen Ur Barbiturates Screen Ur Phencyclidine Scrn Ur Amphetamines Screen U Benzodiazepines Scrn Urine Cocaine Screen U Marijuana (THC) Screen 11/27/19 11/27/19 11/27/19 16:27 19:55 23:42 WBC RBC Hgb Hct MCV MCH MCHC RDW Plt Count MPV Neut % (Auto) Lymph % (Auto) [place] % (Auto) Eos % (Auto) Baso % (Auto) Neut # (Auto) Lymph # (Auto) [place] # (Auto) Eos # (Auto) Baso # (Auto) Nucleated RBC % (auto) Nucleated RBCs # PT INR APTT Sodium Potassium Chloride Carbon Dioxide Anion Gap BUN Creatinine Glucose POC Glucose 129 245 165 Calculated Osmolality Calcium Total Bilirubin AST ALT Alkaline Phosphatase Troponin T Gen 5 ng/L NT-Pro-B Natriuret Pep Total Protein Albumin Globulin Urine Color Urine Appearance Urine pH Ur Specific [place] Urine Protein Urine Glucose (UA) Urine Ketones Urine Blood Urine Nitrate Urine Bilirubin Urine Urobilinogen Ur Leukocyte Esterase Urine Opiates Screen Ur Barbiturates Screen Ur Phencyclidine Scrn Ur Amphetamines Screen U Benzodiazepines Scrn Urine Cocaine Screen U Marijuana (THC) Screen 11/28/19 11/28/19 11/28/19 04:40 05:26 05:26 WBC 8.8 RBC 3.99 L Hgb 11.7 Hct 36.4 L MCV 91.2 MCH 29.3 MCHC 32.1 RDW 12.2 Plt Count 240 MPV 11.1 H Neut % (Auto) 68.7 Lymph % (Auto) 20.4 [place] % (Auto) 9.0 Eos % (Auto) 0.8 Baso % (Auto) 0.8 Neut # (Auto) 6.0 Lymph # (Auto) 1.8 [place] # (Auto) 0.8 Eos # (Auto) 0.1 Baso # (Auto) 0.1 Nucleated RBC % (auto) 0 Nucleated RBCs # 0.0 PT INR APTT Sodium 135 L Potassium 3.7 Chloride 102 Carbon Dioxide 25 Anion Gap 11.7 BUN 21 Creatinine 0.5 Glucose 209 H POC Glucose 197 Calculated Osmolality Calcium 9.3 Total Bilirubin 1.0 AST 17 ALT 8 Alkaline Phosphatase 96 Troponin T Gen 5 ng/L NT-Pro-B Natriuret Pep Total Protein 6.2 L Albumin 3.5 Globulin 2.7 Urine Color Urine Appearance Urine pH Ur Specific [place] Urine Protein Urine Glucose (UA) Urine Ketones Urine Blood Urine Nitrate Urine Bilirubin Urine Urobilinogen Ur Leukocyte Esterase Urine Opiates Screen Ur Barbiturates Screen Ur Phencyclidine Scrn Ur Amphetamines Screen U Benzodiazepines Scrn Urine Cocaine Screen U Marijuana (THC) Screen 11/28/19 11/28/19 07:54 11:47 WBC RBC Hgb Hct MCV MCH MCHC RDW Plt Count MPV Neut % (Auto) Lymph % (Auto) [place] % (Auto) Eos % (Auto) Baso % (Auto) Neut # (Auto) Lymph # (Auto) [place] # (Auto) Eos # (Auto) Baso # (Auto) Nucleated RBC % (auto) Nucleated RBCs # PT INR APTT Sodium Potassium Chloride Carbon Dioxide Anion Gap BUN Creatinine Glucose POC Glucose 189 197 Calculated Osmolality Calcium Total Bilirubin AST ALT Alkaline Phosphatase Troponin T Gen 5 ng/L NT-Pro-B Natriuret Pep Total Protein Albumin Globulin Urine Color Urine Appearance Urine pH Ur Specific [place] Urine Protein Urine Glucose (UA) Urine Ketones Urine Blood Urine Nitrate Urine Bilirubin Urine Urobilinogen Ur Leukocyte Esterase Urine Opiates Screen Ur Barbiturates Screen Ur Phencyclidine Scrn Ur Amphetamines Screen U Benzodiazepines Scrn Urine Cocaine Screen U Marijuana (THC) Screen Cardiac Studies: No Data to Display
[2019-11-28] MEDS: vancomycin 1,000 MG in sodium chloride 0.9% 250 ML 250 MG IV (14:29)
[2019-11-28] MEDS: vancomycin 1,000 MG SDV 1000 MG IRRIGATION (14:59)
--- NOTE | 2019-11-28 16:23 | P.PN_ITS ---
Subjective Subjective: Interval history: No acute events overnight. Today patient seen early in the morning and is due for over at around [address] Buchanan. Patient lying comfortably in bed. As per family had some pain in the leg with the SCDs earlier in the day. Denies of any nausea, vomiting, headache, palpitations, shortness of breath. Vitals/I&O/Wt Last Vital Signs Temp 98.6 F 11/28/19 13:46 Pulse 77 11/28/19 13:46 Resp 20 H 11/28/19 13:46 BP 166/96 11/28/19 13:46 Pulse Ox 94 11/28/19 13:46 11/28/19 11/28/19 11/28/19 06:59 14:59 22:59 Intake Total 870 / 2452.50 250 / 250 Output Total 300 / 300 Balance 870 / 1777.50 -300 / -300 250 / -50 Weight last 48 hrs Weight 57.652 kg Physical Exam Narrative: EXAM NARRATIVE: General: No acute distress, AO x1, at her baseline. HEENT: PERRLA, pupils bilaterally equal and reactive Chest: Normal vesicular breath sounds, no added sounds, equal good air entry bilaterally CVS: S1-S2 regular, no murmurs, no tachycardia, no gallops, no rubs Abdomen: Soft, nontender, no organomegaly, bowel sounds present Neuro: No focal deficits, no facial deformity, AO x3, power 5/5 in all limbs Urinary Catheter Management^: Miller: Cath Placed During This Visit: yes Urethral Indwelling: Yes Reason for Continuing Indwelling Catheter: Perioperative Use in Selected Surgeries Urinary Catheter Date of Insertion: 11/27/19 Urinary Catheter Time of Insertion: 18:30 Data : 11/28/19 05:26 11/28/19 05:26 A&P Assessment and plan (1) Fall: At home in the living room resulting in hip fracture Status: Acute Qualifiers: Encounter type: initial encounter Qualified Code(s): W19.XXXA - Unspecified fall, initial encounter Code(s): W19.XXXA - Unspecified fall, initial encounter (2) Closed intertrochanteric fracture of right hip: Initial encounter Status: Acute Qualifiers: Encounter type: initial encounter Fracture alignment: nondisplaced Qualified Code(s): S72.144A - Nondisplaced intertrochanteric fracture of right femur, initial encounter for closed fracture Code(s): S72.141A - Displaced intertrochanteric fracture of right femur, initial encounter for closed fracture (3) Acute hyperglycemia: Status: Acute Code(s): R73.9 - Hyperglycemia, unspecified (4) Frequent falls: Progressively worsening over the last weeks Status: Acute Code(s): R29.6 - Repeated falls (5) Diverticulitis: Recent diagnosis for which patient is currently on Cipro and Flagyl Status: Acute Code(s): K57.92 - Diverticulitis of intestine, part unspecified, without perforation or abscess without bleeding (6) Hypertension: Status: Acute Qualifiers: Hypertension type: essential hypertension Qualified Code(s): I10 - Essential (primary) hypertension Code(s): I10 - Essential (primary) hypertension (7) Dementia: Status: Acute Qualifiers: Dementia type: unspecified type Dementia behavioral disturbance: without behavioral disturbance Qualified Code(s): F03.90 - Unspecified dementia without behavioral disturbance Code(s): F03.90 - Unspecified dementia without behavioral disturbance (8) CAD (coronary artery disease): Status: Acute Qualifiers: Coronary Disease-Associated Artery/Lesion type: [place] artery [place] vs. transplanted heart: [place] heart Associated angina: without angina Qual ified Code(s): I25.10 - Atherosclerotic heart disease of [place] coronary artery without angina pectoris Code(s): I25.10 - Atherosclerotic heart disease of [place] coronary artery without angina pectoris Additional A&P Information Hip fracture: Dr. Buchanan consulted. Plan for OR in evening today. Traction as per Dr. Buchanan. PT OT evaluation postop. Perioperative antibiotics as per Dr. Buchanan. Pain well controlled at current regimen. Will continue Tylenol 1 g IV every 8 hour for 1 day, morphine 1 g every 3 hours as needed. We will try to avoid oversedation given advanced age. Type 2 diabetes mellitus: Patient has not been on treatment for more than 3 years. Blood sugar severely elevated. Anion gap normal. Check HbA1c. Blood sugar better controlled since changing the fluid to NS. Continue at 75 cc/h. We will change Lantus back to 10 units nightly from tonight after OR. Continue with insulin sliding scale at low dose protocol. Patient would most likely need to be discharged on Lantus once daily. HTN: Continue monitor blood pressures. Patient was switched over to half dose of Imdur. Continue at home dose of Lopressor for now. Continue chronic medications like Aricept, gabapentin, trazodone at bedtime Carb consistent diet postop. DVT prophylaxis as per Dr. Buchanan. Discussed with daughters in detail regarding CODE STATUS. They state she is DNR/DNI. Patient will most likely need placement to SNF. Care coordination consulted. Family is agreeable to placement at SNF. Attestations Medical Necessity Statement*: Hip fracture. OR today. Time Spent in Patient Care: Greater than 35 minutes Coding Level of Care Code Acute Cake Cutter Machine for Chg Fwd Diagnoses Fall W19.XXXA Encounter type: initial encounter Closed intertrochanteric fracture of right hip S72.144A Encounter type: initial encounter Fracture alignment: nondisplaced Acute hyperglycemia R73.9 Frequent falls R29.6 Diverticulitis K57.92 Hypertension I10 Hypertension type: essential hypertension Dementia F03.90 Dementia type: unspecified type Dementia behavioral disturbance: without behavioral disturbance CAD (coronary artery disease) I25.10 Coronary Disease-Associated Artery/Lesion type: [place] artery [place] vs. transplanted heart: [place] heart Associated angina: without angina
[2019-11-28] MEDS: labetalol 5 mg/mL SDV 20mL IVP ×2 (16:46→17:13)
--- NOTE | 2019-11-28 17:12 | PM.OP ---
Operative Report Date of procedure: November 28, 2019 Pre-op Diagnosis: Comminuted right intertrochanteric and subtrochanteric hip fracture Post-op diagnosis: same Procedure Done: Open reduction internal fixation right intertrochanteric and subtrochanteric hip fracture with [place] gamma 3 long trochanteric nail size 11 mm x 360 mm x 125 degrees with a proximal 10 mm x 90 mm lag screw and a distal fully locking screw size 5 mm x 40 mm Specimens removed/disposition: None Pathology: none sent Surgeon: Jacquie Buchanan Molding Machine Setter: [facility] OR technicians Anesthesia: General (Intubated) Estimated blood loss (mL): 50 IV fluids (mL): 600 Urine output (mL): 300 Complications: None Findings: Comminuted proximal femur fracture involving the subtrochanteric and intertrochanteric areas with significant displacement and comminution Condition: stable Disposition: floor Brief History: This 84-year-old woman was in her usual state of health at home where she lives with her when she fell suffering the above injury. The patient was brought to the emergency department. Upon arrival there, she was found to have a significantly comminuted fracture involving the intertrochanteric and subtrochanteric areas. The patient therefore was evaluated by medicine to optimize her for surgery. Subsequently, she was scheduled for the above procedure. Risks and complications were discussed with the family and they understood and consented for the procedure. Procedure: Patient is brought to the operating theater. After undergoing adequate general anesthesia with intubation, the patient was transferred to the fracture table, positioned on the table and fluoroscopic guidance obtained throughout the surgical procedure. Prior to the commencement of the surgical procedure, a surgical pause was performed. At the time of the surgical pause, we confirmed the site and side of surgery as well as preoperative surgical markings and appropriate and timely administration of IV antibiotics, vancomycin 1 g. Availability of equipment was also confirmed. Fluoroscopy was used to confirm the fracture was appropriately reduced in both AP and lateral planes. An incision was then made slightly above the greater trochanter to allow access to the greater trochanter. An awl was used to enter the greater trochanter and a guidewire was subsequently placed. Once the guidewire was confirmed to be in appropriate position in AP and lateral planes, reaming was accomplished over this to allow for the proximal diameter of the nail. Guidewire was then removed, and a long guidewire was placed from proximal to distal. Position of this long guide mian was monitored with fluoroscopy. The guidewire was measured demonstrating that a 360 degree nail would be of the appropriate length. Reaming was then accomplished. We reamed to a size 12-1/2 mm initially increasing to a size 13 to allow for a long trochanteric nail to be passed uneventfully. An 11 mm x 360 mm x 125 degree long gamma 3 trochanteric nail was placed into appropriate position with positioning being confirmed in AP and lateral planes on the x-ray. It passed without difficulty. Guidewire was then passed through the jigging system into the femoral head. We wanted to be center or slightly inferior and posterior to center. Guidewire was placed into appropriate position. Once the guidewire was in appropriate position, this position was confirmed by x-ray. This was then measured and we chose a 10.5 mm x 90 mm lag screw. We reamed to allow for the lag screw to be placed. The 90 mm lag screw was then passed into the femoral head through the trochanteric nail. This was passed uneventfully and again position was confirmed in AP and lateral planes. Compression was obtained under fluoroscopic guidance. The set screw was then placed in position, tightened completely, and subsequently backed off one-quarter turn. The jig system was removed at this time. A perfect match-[place] band technique was used distally. The drill was passed from cortex to cortex through the nail in the static position. This was monitored under fluoroscopic guidance. Subsequently, the screw was measured and we chose a 5 mm x 40 mm fully threaded locking screw. Once the screw was in position, we confirmed appropriate placement of the components utilizing fluoroscopy. Attention was then directed to closure. The hip was copiously irrigated with normal saline with antibiotics. Following this it was dried and closed. Tensor fascia carina was closed proximally with 0 Vicryl in an interrupted fashion. Subcutaneous tissues were closed with 2-0 Monocryl, and the skin was closed with a continuous 3-0 Monocryl subcuticular stitch. This was then covered with Dermabond, Steri-Strips, and Tegaderm. The patient was removed from the fracture table and returned to recovery in satisfactory condition. The patient will be discharged to the floor for postoperative rehabilitation and pain management. There were no specimens obtained.
--- NOTE | 2019-11-28 17:25 | SUR.PHASEI ---
PT SLEEPY AWAKES TO VOICE LOOKS AT SPEAKER, OTHERWISE CONFUSED PT SPEAKS BUT IS GROGGY AND UNABLE TO UNDERSTAND, MONITOR SR, VSS RT HIP DRESSING D/I STONG REGULAR PULSE NOTED TO DISTAL FOOT, SCD AND FOOT PUMP ON. REPORT CALLED [facility] PT FAMILY UPDATED BY DR AVERY AND WENT TO FLOOR TO WAIT.
[2019-11-28 17:44] LABS: Glucose Point of Care 209 mg/dL (70-110)
--- NOTE | 2019-11-28 17:51 | SUR.PHASEI ---
1735 PT TO ROOM PER BED NURSE ROCAEL AT BEDSIDE, PT SPEAKS BRIEFLY TO NURSE, THEN BACK TO SLEEP.BP 169/71, HR 98, RESP 20 SATS ON 3LNC 95%. FAMILY THEN TO ROOM TO SEE PT. NO PROBLEMS OR QUESTIONS VOICED WITH PT CARE.
[2019-11-28 19:38] LABS: Basophils # 0.1 10^3/uL (0.0-0.1); Basophils % 0.4 %; Eosinophils % 0.1 %; Hematocrit 32.8 % (37.0-47.0); Hemoglobin 10.3 g/dL (11.5-15.3); Lymphocytes # 0.6 10^3/uL (0.8-4.8); Mean Corpuscular HGB Conc 31.4 g/dL (30.0-36.0); Mean Corpuscular Hemoglobin 29.7 pg (28.0-34.0); Mean Corpuscular Volume 94.5 fL (81-99); Mean Platelet Volume 11.1 fL (7.4-10.4); Monocytes # 1.1 10^3/uL (0.2-0.9); Monocytes % 7.3 %; Neutrophils # 13.4 10^3/uL (1.8-7.7); Neutrophils % 87.5 %; Nucleated Red Blood Cells % 0 %; Platelet Count 265 10^3/cmm (130-400); Red Blood Count 3.47 10^6/uL (4.1-5.3); Red Cell Distribution Width 12.4 % (12.1-15.1); White Blood Count 15.3 10^3/uL (4.0-10.0)
[2019-11-28 19:55] LABS: Anion Gap 17.8 (5-19); Blood Urea Nitrogen 26 mg/dL (8-23); Calcium 8.6 mg/dL (8.5-10.5); Carbon Dioxide 21 mmol/L (22-29); Chloride 100 mmol/L (98-107); Glucose 351 mg/dL (65-115); Osmolality Calculated 291 mOsm/kg (285-295); Potassium 3.8 mmol/L (3.5-5.1); Sodium 135 mmol/L (136-145)
[2019-11-28 21:04] LABS: Glucose Point of Care 356 mg/dL (70-110)
[2019-11-29] VITALS (9 sets, daily range): BP systolic 97–136; BP diastolic 60–73; PULSE 76–94; RESP 14–24; TEMP 36.4–37.7; O2SAT 88–97
[2019-11-29] MEDS: HYDROmorphone 1 mg/mL INJ 1 mL 0.5 MG IVP (03:46)
[2019-11-29 06:08] LABS: Basophils # 0.1 10^3/uL (0.0-0.1); Basophils % 0.5 %; Eosinophils % 0.1 %; Hematocrit 30.3 % (37.0-47.0); Hemoglobin 9.5 g/dL (11.5-15.3); Lymphocytes # 1.4 10^3/uL (0.8-4.8); Lymphocytes % 12.4 %; Mean Corpuscular HGB Conc 31.4 g/dL (30.0-36.0); Mean Corpuscular Hemoglobin 30.7 pg (28.0-34.0); Mean Corpuscular Volume 98.1 fL (81-99); Monocytes # 1.3 10^3/uL (0.2-0.9); Monocytes % 12.2 %; Neutrophils # 8.1 10^3/uL (1.8-7.7); Nucleated Red Blood Cells % 0 %; Platelet Count 233 10^3/cmm (130-400); Red Blood Count 3.09 10^6/uL (4.1-5.3); Red Cell Distribution Width 12.5 % (12.1-15.1)
[2019-11-29 06:31] LABS: Alanine Aminotransferase 6 U/L (0-33); Albumin Level 2.8 g/dL (3.5-5.2); Alkaline Phosphatase 80 IU/L (35-105); Anion Gap 14.8 (5-19); Aspartate Amino Transferase 16 U/L (0-32); Blood Urea Nitrogen 31 mg/dL (8-23); Calcium 8.5 mg/dL (8.5-10.5); Carbon Dioxide 21 mmol/L (22-29); Chloride 105 mmol/L (98-107); Globulin 2.4 g/dL (1.3-4.6); Glucose 219 mg/dL (65-115); Potassium 3.8 mmol/L (3.5-5.1); Sodium 137 mmol/L (136-145); Total Bilirubin 0.8 mg/dL (0.15-1.2); Total Protein 5.2 g/dL (6.6-8.7)
[2019-11-29 06:46] LABS: Glucose Point of Care 206 mg/dL (70-110)
[2019-11-29] MEDS: aspirin 325 mg EC Tablet PO (08:07)
[2019-11-29] MEDS: metoprolol tartrate 25 mg Tablet 12.5 MG PO ×2 (08:07→17:53)
[2019-11-29] MEDS: oxyCODONE 5 mg IR Tab/Cap PO ×3 (08:07→17:53)
[2019-11-29] MEDS: donepezil 5 MG Tablet 10 MG PO (08:15)
--- NOTE | 2019-11-29 08:16 | ANE.PACU2 ---
 Inpatient post-anesthesia follow up: Airway intact: Yes Vital signs: Temperature 97.9 F Pulse Rate [Apical ] 59 Pulse Rate 92 Respiratory Rate 16 Blood Pressure [Ri ght Arm] 189/84 Blood Pressure 129/67 Pulse Oximetry 97 Oxygen Delivery Me thod [ Room Air Current Rate & Del stacy] Oxygen Delivery Me thod Nasal Cannula Oxygen Flow Rate 3 Fraction of Inspir ed Oxygen Hydration adequate: Yes Nausea and vomiting: No Pain level: 1 Mental status: Baseline Additional Comments: Pain only if moving, hasn't required much narcotic
[2019-11-29] MEDS: docusate sodium 100 mg Capsule PO ×2 (09:48→17:53)
[2019-11-29] MEDS: acetaminophen 500 mg Tablet 1000 MG PO ×2 (09:48→17:53)
[2019-11-29] MEDS: ketoconazole Cream 15 gm 1 APPLIC TOPICAL (10:11)
--- NOTE | 2019-11-29 13:17 | PM.PN ---
Subjective Subjective: Interval history: Patient is seen with her family. She is doing well and is progressing with her therapies. She has no significant complaints and feels ready for discharge to retirement. Medications: Reviewed: Yes Medication Review Details: Home Medications Medication Instructions Recorded Confirmed Type citalopram 10 mg t ablet 10 mg PO DAILY 11/22/19 11/26/19 History donepezil 10 mg ta blet 10 mg PO BEDTIME 11/22/19 11/26/19 History gabapentin 300 mg capsule 600 mg PO BID cap 11/22/19 11/26/19 History isosorbide mononit rate 60 mg 60 mg PO QAM 11/22/19 11/26/19 History tablet,extended re lease 24 hr ketoconazole 2 % t opical cream 1 applic TOPICAL B ID 11/22/19 11/26/19 History naproxen 500 mg ta blet 500 mg PO BID PRN 11/22/19 11/26/19 History trazodone 50 mg ta blet 25 mg PO BEDTIME tab 11/22/19 11/26/19 History Vitals/I&O/Wt Last Vital Signs Temp 97.5 F L 11/29/19 11:17 Pulse 76 11/29/19 11:17 Resp 24 H 11/29/19 13:03 BP 125/64 11/29/19 11:17 Pulse Ox 93 11/29/19 11:17 11/28/19 11/29/19 11/29/19 22:59 06:59 14:59 Intake Total 1310 / 1310 0 / 1310 780 / 780 Output Total 950 / 1250 350 / 1600 Balance 360 / 60 -350 / -290 780 / 780 Physical Exam Narrative: EXAM NARRATIVE: The patient is alert today. The thigh is examined and is soft and nontender. There is no evidence of DVT. She is neurologically intact. Dressings are dry. Const: COMMON NORMALS: no apparent distress and average body habitus; negative for oriented x3 GENERAL APPEARANCE: comfortable and well kempt HENMT: COMMON NORMALS: normocephalic and head/scalp atraumatic HEAD & SCALP: normocephalic and atraumatic Eye: GENERAL EYE: normal appearance of both eyes Chest: COMMONS NORMALS: inspection of chest normal Resp: COMMON NORMALS: normal respiratory effort EFFORT & INSPECTION: No abnormal respiratory pattern and No tachypneic Neuro: COMMON NORMALS: moves all extremities (But is resistant to move the right lower extremity); negative for oriented x3 SENSORIUM/ORIENTATION: Yes other (The patient was nonverbal while I was in the room.) Psych: COMMON NORMALS: negative for mental status grossly normal APPEARANCE: Yes well kempt ATTITUDE: Yes calm and No engaged ATTENTION/CONCENTRATION: Yes attention grossly impaired and Yes concentration grossly impaired MEMORY/COGNITION: Yes memory grossly impaired and Yes cognition grossly impaired Skin: COMMON NORMALS: no rashes or lesions noted GENERAL SKIN EXAM: no rashes or lesions noted Urinary Catheter Management^: Miller: Cath Placed During This Visit: yes Urethral Indwelling: Yes Reason for Continuing Indwelling Catheter: Perioperative Use in Selected Surgeries Urinary Catheter Date of Insertion: 11/27/19 Urinary Catheter Time of Insertion: 18:30 Data : 11/29/19 05:53 11/29/19 05:53 A&P Assessment and plan (1) Subtrochanteric fracture of right femur: The patient has a subtrochanteric fracture which is comminuted and extends into the intertrochanteric area. On November 27, she underwent open reduction internal fixation uneventfully. She is seen in her room today and is working with physical therapy. There is no evidence of complication or DVT. She is ready for discharge to retirement when medically appropriate. Status: Acute Code(s): S72.21XA - Displaced subtrochanteric fracture of right femur, initial encounter for closed fracture (2) Closed intertrochanteric fracture of right hip: Status: Acute Qualifiers: Encounter type: initial encounter Fracture alignment: nondisplaced Qualified Code(s): S72.144A - Nondisplaced intertrochanteric fracture of right femur, initial encounter for closed fracture Code(s): S72.141A - Displaced intertrochanteric fracture of right femur, initial encounter for closed fracture (3) Frequent falls: Status: Acute Code(s): R29.6 - Repeated falls Attestations Medical Necessity Statement*: Patient may be discharged to retirement when medically appropriate. Coding Level of Care Code Acute Water Treatment Specialist for Zahra Helms Diagnoses Subtrochanteric fracture of right femur S72.21XA Closed intertrochanteric fracture of right hip S72.144A Encounter type: initial encounter Fracture alignment: nondisplaced Frequent falls R29.6
--- NOTE | 2019-11-29 14:12 | DCPLANNER ---
Pg 2 of IM explained to spouse and other family in the room. Signed by pt's Son. Copy provided.
--- NOTE | 2019-11-29 16:22 | PM.PN ---
Subjective Subjective: Interval history: Postop day 1. Underwent ORIF with Dr. Buchanan yesterday. Had an uneventful night. Lying comfortably in bed denying of any nausea, vomiting, palpitations, chest pain, headache. Patient is seen with her family. She is doing well and is progressing with her therapies. She has no significant complaints and feels ready for discharge to care home. Vitals/I&O/Wt Last Vital Signs Temp 98.9 F 11/29/19 15:32 Pulse 88 11/29/19 15:32 Resp 14 11/29/19 15:32 BP 136/69 11/29/19 15:32 Pulse Ox 93 11/29/19 15:32 11/29/19 11/29/19 11/29/19 06:59 14:59 22:59 Intake Total 0 / 1310 780 / 780 Output Total 350 / 1600 Balance -350 / -290 780 / 780 Physical Exam Narrative: EXAM NARRATIVE: General: No acute distress, AO x1, at her baseline. HEENT: PERRLA, pupils bilaterally equal and reactive Chest: Normal vesicular breath sounds, no added sounds, equal good air entry bilaterally CVS: S1-S2 regular, no murmurs, no tachycardia, no gallops, no rubs Abdomen: Soft, nontender, no organomegaly, bowel sounds present Neuro: No focal deficits, no facial deformity, AO x3, power 5/5 in all limbs. Extremities: Healthy postoperative dressing present, no soakage. Urinary Catheter Management^: Miller: Cath Placed During This Visit: yes Urethral Indwelling: Yes Reason for Continuing Indwelling Catheter: Perioperative Use in Selected Surgeries Urinary Catheter Date of Insertion: 11/27/19 Urinary Catheter Time of Insertion: 18:30 Data : 11/29/19 05:53 11/29/19 05:53 A&P Assessment and plan (1) Fall: At home in the living room resulting in hip fracture Status: Acute Qualifiers: Encounter type: initial encounter Qualified Code(s): W19.XXXA - Unspecified fall, initial encounter Code(s): W19.XXXA - Unspecified fall, initial encounter (2) Closed intertrochanteric fracture of right hip: Initial encounter Status: Acute Qualifiers: Encounter type: initial encounter Fracture alignment: nondisplaced Qualified Code(s): S72.144A - Nondisplaced intertrochanteric fracture of right femur, initial encounter for closed fracture Code(s): S72.141A - Displaced intertrochanteric fracture of right femur, initial encounter for closed fracture (3) Acute hyperglycemia: Status: Acute Code(s): R73.9 - Hyperglycemia, unspecified (4) Frequent falls: Progressively worsening over the last weeks Status: Acute Code(s): R29.6 - Repeated falls (5) Diverticulitis: Recent diagnosis for which patient is currently on Cipro and Flagyl Status: Acute Code(s): K57.92 - Diverticulitis of intestine, part unspecified, without perforation or abscess without bleeding (6) Hypertension: Status: Acute Qualifiers: Hypertension type: essential hypertension Qualified Code(s): I10 - Essential (primary) hypertension Code(s): I10 - Essential (primary) hypertension (7) Dementia: Status: Acute Qualifiers: Dementia type: unspecified type Dementia behavioral disturbance: without behavioral disturbance Qualified Code(s): F03.90 - Unspecified dementia without behavioral disturbance Code(s): F03.90 - Unspecified dementia without behavioral disturbance (8) CAD (coronary artery disease): Status: Acute Qualifiers: Coronary Disease-Associated Artery/Lesion type: [place] artery [place] vs. transplanted heart: [place] heart Associated angina: without angina Qualified Code(s): I25.10 - Atherosclerotic heart disease of [place] coronary artery without angina pectoris Code(s): I25.10 - Atherosclerotic heart disease of [place] coronary artery without angina pectoris Additional A&P Information Hip fracture: Postop day 1. Underwent ORIF yesterday. PT OT, anticoagulation, perioperative antibiotics, pain regimen as per Dr. Bucahnan. Patient is working with physical therapy well today. We will try to avoid oversedation with pain medications given advanced age. We will continue to monitor hemoglobin. Hemoglobin 9.7 today most likely postoperative dilutional changes. TOMY: Creatinine 1.2 today. Baseline creatinine 0.7-0.9. Most likely due to perioperative state. Continue with IV hydration at 100 cc/h. Medical reconciliation done for nephrotoxic drugs. Check BMP tomorrow. Type 2 diabetes mellitus: Patient has not been on treatment for more than 3 years. Blood sugar severely elevated. Anion gap normal. Check HbA1c. Blood sugar better controlled since changing the fluid to NS. Continue at 100 cc/h. We will change Lantus back to 10 units nightly from tonight after OR. Continue with insulin sliding scale at low dose protocol. Patient would most likely need to be discharged on Lantus once daily. HTN: Continue monitor blood pressures. Patient was switched over to half dose of Imdur. Continue at home dose of Lopressor for now. Continue chronic medications like Aricept, gabapentin, trazodone at bedtime Carb consistent diet postop. DVT prophylaxis as per Dr. Buchanan. Discussed with daughters in detail regarding CODE STATUS. They state she is DNR/DNI. Patient will most likely need placement to SNF. Care coordination consulted. Family is agreeable to placement at SNF. Attestations Medical Necessity Statement*: Postop management Time Spent in Patient Care: Greater than 35 minutes Coding Level of Care Code Acute Roadmaster for Chg Fwd Diagnoses Fall W19.XXXA Encounter type: initial encounter Closed intertrochanteric fracture of right hip S72.144A Encounter type: initial encounter Fracture alignment: nondisplaced Acute hyperglycemia R73.9 Frequent falls R29.6 Diverticulitis K57.92 Hypertension I10 Hypertension type: essential hypertension Dementia F03.90 Dementia type: unspecified type Dementia behavioral disturbance: without behavioral disturbance CAD (coronary artery disease) I25.10 Coronary Disease-Associated Artery/Lesion type: [place] artery [place] vs. transplanted heart: [place] heart Associated angina: without angina
[2019-11-29 17:05] LABS: Glucose Point of Care 191 mg/dL (70-110)
[2019-11-29 17:16] LABS: Iron 25 ug/dL (37-145); Percent Saturation 13.5 % (20-50); Total Iron Binding Capacity 185 mcg/dl; Unsaturated Iron Binding 160 ug/dL (112-347)
[2019-11-29] MEDS: ciprofloxacin 500 mg Tablet PO (17:52)
[2019-11-29] MEDS: metroNIDAZOLE 250 mg Tablet PO (17:52)
[2019-11-29] MEDS: gabapentin 300 mg Capsule 600 MG PO (17:53)
[2019-11-29 19:47] LABS: Glucose Point of Care 286 mg/dL (70-110)
[2019-11-29 19:47] LABS: Glucose Point of Care 261 mg/dL (70-110)
[2019-11-29] MEDS: sodium chloride 0.9% 1,000 ML 100 ML IV (20:34)
[2019-11-30] VITALS (7 sets, daily range): BP systolic 100–160; BP diastolic 53–69; PULSE 79–94; RESP 17–18; TEMP 36.5–37.1; O2SAT 91–96
[2019-11-30] MEDS: acetaminophen 500 mg Tablet 1000 MG PO ×3 (01:58→17:25)
[2019-11-30 05:21] LABS: Basophils # 0.1 10^3/uL (0.0-0.1); Basophils % 0.6 %; Eosinophils # 0.4 10^3/uL (0.0-0.8); Eosinophils % 4.4 %; Hematocrit 26.4 % (37.0-47.0); Hemoglobin 8.3 g/dL (11.5-15.3); Lymphocytes # 1.4 10^3/uL (0.8-4.8); Lymphocytes % 16.9 %; Mean Corpuscular HGB Conc 31.4 g/dL (30.0-36.0); Mean Corpuscular Hemoglobin 29.3 pg (28.0-34.0); Mean Corpuscular Volume 93.3 fL (81-99); Mean Platelet Volume 10.7 fL (7.4-10.4); Monocytes # 0.9 10^3/uL (0.2-0.9); Neutrophils # 5.3 10^3/uL (1.8-7.7); Neutrophils % 66.7 %; Nucleated Red Blood Cells % 0 %; Platelet Count 212 10^3/cmm (130-400); Red Blood Count 2.83 10^6/uL (4.1-5.3); Red Cell Distribution Width 12.6 % (12.1-15.1)
[2019-11-30 06:16] LABS: Alanine Aminotransferase 8 U/L (0-33); Albumin Level 2.6 g/dL (3.5-5.2); Alkaline Phosphatase 78 IU/L (35-105); Anion Gap 13.5 (5-19); Aspartate Amino Transferase 22 U/L (0-32); Blood Urea Nitrogen 24 mg/dL (8-23); Calcium 8.6 mg/dL (8.5-10.5); Carbon Dioxide 22 mmol/L (22-29); Chloride 105 mmol/L (98-107); Globulin 2.8 g/dL (1.3-4.6); Glucose 143 mg/dL (65-115); Potassium 3.5 mmol/L (3.5-5.1); Sodium 137 mmol/L (136-145); Total Bilirubin 0.9 mg/dL (0.15-1.2); Total Protein 5.4 g/dL (6.6-8.7)
[2019-11-30 06:45] LABS: Glucose Point of Care 127 mg/dL (70-110)
[2019-11-30] MEDS: sodium chloride 0.9% 1,000 ML 100 ML IV (09:42)
[2019-11-30] MEDS: gabapentin 300 mg Capsule 600 MG PO (09:45)
[2019-11-30] MEDS: metoprolol tartrate 25 mg Tablet 12.5 MG PO (09:47)
[2019-11-30] MEDS: citalopram 20 mg Tablet 10 MG PO (09:48)
[2019-11-30] MEDS: aspirin 325 mg EC Tablet PO (09:49)
[2019-11-30] MEDS: isosorbide mononitrate ER 60 mg Tablet 30 MG PO (09:49)
[2019-11-30] MEDS: docusate sodium 100 mg Capsule PO (09:49)
[2019-11-30] MEDS: donepezil 5 MG Tablet 10 MG PO (12:22)
[2019-11-30] MEDS: metroNIDAZOLE 250 mg Tablet PO (13:14)
[2019-11-30 15:41] LABS: Hematocrit 25.7 % (37.0-47.0); Hemoglobin 8.2 g/dL (11.5-15.3)
--- NOTE | 2019-11-30 16:11 | PM.PN ---
Subjective Subjective: Interval history: On postop day 2, the patient is doing well. She did have a decrease in her H&H, but a repeat H&H demonstrated no significant ongoing decrease. Upon discussion with the hospitalist service, she is ready for discharge. The family is ready for her discharge as well. Medications: Reviewed: Yes Medication Review Details: Home Medications Medication Instructions Recorded Confirmed Type citalopram 10 mg t ablet 10 mg PO DAILY 11/22/19 11/26/19 History donepezil 10 mg ta blet 10 mg PO BEDTIME 11/22/19 11/26/19 History gabapentin 300 mg capsule 600 mg PO BID cap 11/22/19 11/26/19 History isosorbide mononit rate 60 mg 60 mg PO QAM 11/22/19 11/26/19 History tablet,extended re lease 24 hr ketoconazole 2 % t opical cream 1 applic TOPICAL B ID 11/22/19 11/26/19 History naproxen 500 mg ta blet 500 mg PO BID PRN 11/22/19 11/26/19 History trazodone 50 mg ta blet 25 mg PO BEDTIME tab 11/22/19 11/26/19 History Vitals/I&O/Wt Last Vital Signs Temp 98.1 F 11/30/19 15:19 Pulse 80 11/30/19 15:19 Resp 18 11/30/19 15:19 BP 159/64 11/30/19 15:19 Pulse Ox 92 11/30/19 15:19 11/30/19 11/30/19 11/30/19 06:59 14:59 22:59 Intake Total 1000 / 3140 720 / 720 Output Total 825 / 825 Balance 1000 / 2640 -105 / -105 Physical Exam Narrative: EXAM NARRATIVE: The patient is alert today. The thigh is examined and is soft and nontender. There is no evidence of DVT. She is neurologically intact. Dressings are dry. Const: COMMON NORMALS: no apparent distress and average body habitus; negative for oriented x3 GENERAL APPEARANCE: comfortable and well kempt HENMT: COMMON NORMALS: normocephalic and head/scalp atraumatic HEAD & SCALP: normocephalic and atraumatic Eye: GENERAL EYE: normal appearance of both eyes Chest: COMMONS NORMALS: inspection of chest normal Resp: COMMON NORMALS: normal respiratory effort EFFORT & INSPECTION: No abnormal respiratory pattern and No tachypneic Neuro: COMMON NORMALS: moves all extremities (But is resistant to move the right lower extremity); negative for oriented x3 SENSORIUM/ORIENTATION: Yes other (The patient was nonverbal while I was in the room.) Psych: COMMON NORMALS: negative for mental status grossly normal APPEARANCE: Yes well kempt ATTITUDE: Yes calm and No engaged ATTENTION/CONCENTRATION: Yes attention grossly impaired and Yes concentration grossly impaired MEMORY/COGNITION: Yes memory grossly impaired and Yes cognition grossly impaired Skin: COMMON NORMALS: no rashes or lesions noted GENERAL SKIN EXAM: no rashes or lesions noted Urinary Catheter Management^: Miller: Cath Placed During This Visit: yes, but has since been removed by the nurse Urethral Indwelling: No Urinary Catheter Date of Insertion: 11/27/19 Urinary Catheter Time of Insertion: 18:30 Date Urinary Catheter Removed: 11/30/19 Time Urinary Catheter Discontinued: 16:20 Data : 11/30/19 15:18 11/30/19 05:13 A&P Assessment and plan (1) Subtrochanteric fracture of right femur: The patient has a subtrochanteric fracture which is comminuted and extends into the intertrochanteric area. On November 27, she underwent open reduction internal fixation uneventfully. She is seen in her room today and is working with physical therapy. There is no evidence of complication or DVT. She is ready for discharge to senior care when medically appropriate. Status: Acute Code(s): S72.21XA - Displaced subtrochanteric fracture of right femur, initial encounter for closed fracture (2) Closed intertrochanteric fracture of right hip: Status: Acute Qualifiers: Encounter type: initial encounter Fracture alignment: nondisplaced Qualified Code(s): S72.144A - Nondisplaced intertrochanteric fracture of right femur, initial encounter for closed fracture Code(s): S72.141A - Displaced intertrochanteric fracture of right femur, initial encounter for closed fracture (3) Frequent falls: Status: Acute Code(s): R29.6 - Repeated falls Attestations Medical Necessity Statement*: Patient is ready for discharge to senior care. 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
--- NOTE | 2019-11-30 16:40 | PM.DCS ---
Discharge Providers Date of Admission: 11/26/19 19:01 Date of Discharge: November 30, 2019 Attending Provider at Admission: Sita Cat MD Attending Provider at Discharge: Donato Hayes MD Primary Care Provider: RASHMI Grove Diagnoses at Discharge Discharge Diagnosis (1) Subtrochanteric fracture of right femur: Status: Acute (2) Closed intertrochanteric fracture of right hip: Status: Acute Qualifiers: Encounter type: initial encounter Fracture alignment: nondisplaced Qualified Code(s): S72.144A - Nondisplaced intertrochanteric fracture of right femur, initial encounter for closed fracture (3) Frequent falls: Status: Acute Reason for Visit Reason for Visit: Reason For Visit: FALL/ R LEG INJURY/ FACIAL DROOP/ SLURRED SPEECH Hospital Course Discharge Summary: Milagro Salcedo is a 84 year old female Who lives at home with her . She has dementia. History is obtained from her daughter. Over the last year or so patient's dementia has progressively worsened. Over the last few months she is began having increasing difficulty with weakness and getting around though she still tries. She has had multiple falls over the last few months. In the last week or so this has increased. She was seen by primary care provider in the clinic recently with arrangements to get some home health because of the increasing falls. She had been seen in the emergency room a couple of days ago. Previous time she has not sustained an injury. Today, her went to the bathroom and when he came back patient had fallen on the floor in the living room. She fell onto a carpeted surface, landing on her right hip. She was ultimately found to have hip fracture. She is being admitted to the hospitalist service with orthopedic consultation for surgical intervention. She was seen by Dr. Buchanan from orthopedics. Patient underwent ORIF on December 08. She tolerated the procedure well. Her postop time was complicated by mild anemia with a hemoglobin going down to 8.3. Her hemoglobin was monitored and was rechecked and it remained stable. She also developed some TOMY with a creatinine went up to 1.2. Her creatinine has remained stable and he has been advised to increase her oral intake. Patient worked well with physical therapy and is being discharged to for further rehabilitation. Patient is advised to check her kidney functions in 1 week and follow-up with her primary care physician. She is been discharged in hemodynamically for further rehabilitation. She is to follow-up with orthopedics as directed. Physical Exam Narrative: EXAM NARRATIVE: General: No acute distress, AO x1, at her baseline. HEENT: PERRLA, pupils bilaterally equal and reactive Chest: Normal vesicular breath sounds, no added sounds, equal good air entry bilaterally CVS: S1-S2 regular, no murmurs, no tachycardia, no gallops, no rubs Abdomen: Soft, nontender, no organomegaly, bowel sounds present Neuro: No focal deficits, no facial deformity, AO x3, power 5/5 in all limbs. Extremities: Healthy postoperative dressing present, no soakage. Urinary Catheter Management^: Miller: Cath Placed During This Visit: yes, but has since been removed by the nurse Urethral Indwelling: No Reason for Continuing Indwelling Catheter: Chronic Indwelling Urinary Catheter on Admission Urinary Catheter Date of Insertion: 11/27/19 Urinary Catheter Time of Insertion: 18:30 Date Urinary Catheter Removed: 11/30/19 Time Urinary Catheter Discontinued: 16:20 Discharge Data Data Completed and Pending: Completed Studies During Hospitalization Category Date Time Status CT head wo con* 7 0450 Stat Cat Scan 11/26/19 17:41 Completed XR hip RT 2-3V wo /w pel* [id number] Rout ine Exams 11/28/19 Completed XR hip RT 2-3V wo /w pel* [id number] Stat Exams 11/26/19 17:41 Completed Labs from last 24 hours 11/30/19 11/30/19 11/30/19 15:18 06:37 05:13 WBC RBC Hgb 8.2 L Hct 25.7 L MCV MCH MCHC RDW Plt Count MPV Neut % (Auto) Lymph % (Auto) [place] % (Auto) Eos % (Auto) Baso % (Auto) Neut # (Auto) Lymph # (Auto) [place] # (Auto) Eos # (Auto) Baso # (Auto) Nucleated RBC % (a uto) Nucleated RBCs # Sodium 137 Potassium 3.5 Chloride 105 Carbon Dioxide 22 Anion Gap 13.5 BUN 24 H Creatinine 1.2 H Glucose 143 H POC Glucose 127 Calcium 8.6 Iron TIBC % Saturation Unsat Iron Binding Total Bilirubin 0.9 AST 22 ALT 8 Alkaline Phosphata se 78 Total Protein 5.4 L Albumin 2.6 L Globulin 2.8 0311/29/19 11/29/19 05:13 19:42 16:55 WBC 8.0 RBC 2.83 L Hgb 8.3 L Hct 26.4 L MCV 93.3 MCH 29.3 MCHC 31.4 RDW 12.6 Plt Count 212 MPV 10.7 H Neut % (Auto) 66.7 Lymph % (Auto) 16.9 [place] % (Auto) 11.0 Eos % (Auto) 4.4 Baso % (Auto) 0.6 Neut # (Auto) 5.3 Lymph # (Auto) 1.4 [place] # (Auto) 0.9 Eos # (Auto) 0.4 Baso # (Auto) 0.1 Nucleated RBC % (a uto) 0 Nucleated RBCs # 0.0 Sodium Potassium Chloride Carbon Dioxide Anion Gap BUN Creatinine Glucose POC Glucose 261 191 Calcium Iron TIBC % Saturation Unsat Iron Binding Total Bilirubin AST ALT Alkaline Phosphata se Total Protein Albumin Globulin 11/29/19 11/29/19 11:15 05:53 WBC RBC Hgb Hct MCV MCH MCHC RDW Plt Count MPV Neut % (Auto) Lymph % (Auto) [place] % (Auto) Eos % (Auto) Baso % (Auto) Neut # (Auto) Lymph # (Auto) [place] # (Auto) Eos # (Auto) Baso # (Auto) Nucleated RBC % (a uto) Nucleated RBCs # Sodium Potassium Chloride Carbon Dioxide Anion Gap BUN Creatinine Glucose POC Glucose 286 Calcium Iron 25 L TIBC 185 % Saturation 13.5 L Unsat Iron Binding 160 Total Bilirubin AST ALT Alkaline Phosphata se Total Protein Albumin Globulin Vitals: Last Vital Signs Temp 98.1 F 11/30/19 16:23 Pulse 80 11/30/19 16:23 Resp 18 11/30/19 16:23 BP 159/64 11/30/19 16:23 Pulse Ox 92 11/30/19 16:23 Discharge Plan Discharge Patient Disposition: Xfer SNF Condition: Stable Prescriptions: New acetaminophen 500 mg Tablet 1,000 mg PO Q8H 15 Days Qty: 0 RF: 0 aspirin 325 mg Tablet,Delayed Release (Dr/Ec) 325 mg PO DAILY Qty: 0 RF: 0 oxycodone 5 mg Tablet 5 - 10 mg PO Q4H PRN (Reason: Moderate To Severe Pain) Qty: 30 RF: 0 ferrous sulfate 325 mg (65 mg iron) tablet 325 mg PO BID 30 Days Qty: 60 RF: 0 Continued isosorbide mononitrate 60 mg tablet extended release 24 hr 60 mg PO QAM RF: 0 gabapentin 300 mg capsule 600 mg PO BID RF: 0 citalopram 10 mg tablet 10 mg PO DAILY RF: 0 trazodone 50 mg tablet 25 mg PO BEDTIME RF: 0 naproxen 500 mg tablet 500 mg PO BID PRN (Reason: Pain) RF: 0 ketoconazole 2 % cream 1 applic TOPICAL BID RF: 0 donepezil 10 mg tablet 10 mg PO BEDTIME RF: 0 metronidazole [Flagyl] 250 mg tablet 250 mg PO QID 7 Days Qty: 28 RF: 0 ciprofloxacin HCl [Cipro] 500 mg tablet 500 mg PO BID Qty: 14 RF: 0 amlodipine 5 mg tablet 5 mg PO DAILY Qty: 30 RF: 0 metoprolol tartrate 25 mg tablet 12.5 mg PO BID Qty: 0 RF: 0 Discharge Orders: Discharge Order (Routine); Ordered 11/29/19 Ordered By: Jacquie Buchanan Referrals: [facility] [Outside] Jacquie Buchanan MD [Physician] - 12/09/19 9:00 am (Please call the office for follow-up appointment in 2 to 3 weeks time.) Juan Monsivais FNP [Primary Care Provider] - (WILL SEE IN REHAB THEN WILL SEE JUAN CARABALLO AFTER DISCHARGE FROM REHAB) Discharge Activity: Limit activity as instructed, Use walker/crutches as instructed and Wheelchair as instructed Activity Restrictions/Additional Instructions: May weight-bear as tolerated right lower extremity. Change dressings PRN. Range of motion and strengthening with physical therapy. 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
[2019-12-01 06:14] LABS: Glucose Point of Care 132 mg/dL (70-110)
[2019-12-01 06:14] LABS: Glucose Point of Care 303 mg/dL (70-110)
== END 2019-11-30 17:45 | disposition skilled nursing facility (03) | DRG 481 ==
LOC: ER 19:18 → MEDSURG 19:46
PROVIDERS: Specialist; Admitting Provider Hospitalist; Emergency Provider Emergency Medicine; PCP Nurse Practitioner Family; Visit Provider Student in an Organized Health Care Education/Training Program
PROC: 0QS604Z Reposition Right Upper Femur with Internal Fixation Device, Open Approach (ICD-10-PCS; principal; 2019-11-28 15:00)
DX: S72.144A Nondisplaced intertrochanteric fracture of right femur, initial encounter for closed fracture (principal); D62 Acute posthemorrhagic anemia; N17.9 Acute kidney failure, unspecified; K57.92 Diverticulitis of intestine, part unspecified, without perforation or abscess without bleeding; E11.65 Type 2 diabetes mellitus with hyperglycemia; F03.90 Unspecified dementia, unspecified severity, without behavioral disturbance, psychotic disturbance, mood disturbance, and anxiety; R47.81 Slurred speech; R29.810 Facial weakness; W18.30XA Fall on same level, unspecified, initial encounter; R29.6 Repeated falls; I10 Essential (primary) hypertension; I25.10 Atherosclerotic heart disease of native coronary artery without angina pectoris; E78.5 Hyperlipidemia, unspecified; Z66 Do not resuscitate; S72.21XA Displaced subtrochanteric fracture of right femur, initial encounter for closed fracture; Y92.018 Other place in single-family (private) house as the place of occurrence of the external cause; Z79.82 Long term (current) use of aspirin; Z79.83 Long term (current) use of bisphosphonates; Z79.2 Long term (current) use of antibiotics; Z79.818 Long term (current) use of other agents affecting estrogen receptors and estrogen levels; Z95.820 Peripheral vascular angioplasty status with implants and grafts; Z79.4 Long term (current) use of insulin
CPT/HCPCS: 12345; 36415; 36416; 70450; 73502; 74177; 76000; 80048; 80053; 80306; 80307; 81003; 82962; 83540; 83550; 83880; 84484; 85014; 85018; 85025; 85610; 85730; 86850; 86900; 93005; 96372; 96375; 97162; 97166; 97530; 97535; 99283; A9270; C1713; J1170; J1650; J1815; J2001; J2405; J2704; J3010; J3370; J3490; J7030; Q9967

== ENCOUNTER 2019-12-12 11:02 | Inpatient (IN) | payer MEDICARE, BC, SELFPAY ==
[2019-12-12] VITALS (9 sets, daily range): BP systolic 119–148; BP diastolic 56–75; PULSE 66–101; RESP 15–18; TEMP 36.5–37.1; O2SAT 91–97; BMI 21.8
--- NOTE | 2019-12-12 11:11 | ED_ITS ---
Entered by Krystyna Ocasio, acting as scribe for Dec 12, 2019 11:02 HPI - Altered Mental Status General: Chief Complaint: Altered Mental Status Stated Complaint: AMS Time Seen by Provider: 12/12/19 11:11 Source: patient Mode of arrival: EMS Limitations: altered mental status History of Present Illness: HPI narrative: 84 yo f came to the er by [facility] For altered Mental status. Onset was this morning. Pt fell and broke her hip 2 weeks ago and had surgery a week ago. Pts family states that she was not herself, could not get her to respond at all and was limp and could not get her back into bed. Family said that normally she is very responsive. Pt had a similar episode when they got her up last week that she had a syncope episode. Pt states that she does not feel good and that her right hip hurts. complaint: altered mental status Onset (ago): day(s) (today) Timing confirmed by: other ([facility]) Review of Systems General: Reports: other (negative unless marked) Neuro: Reports: weakness in extremities PFSH ED PFSH: Medical History CAD (coronary artery disease) Dementia Diabetes mellitus diet controlled to date Hyperlipemia Hypertension Muscle wasting and atrophy, not elsewhere classified, multiple sites Osteoarthritis Surgical History History of colon resection History of coronary artery stent placement Hx of appendectomy Hx of hysterectomy Family History Family/Other Hypertension Heart disease Dementia CAD (coronary artery disease) Hyperlipidemia Social History Smoking and tobacco status: never smoked Second hand smoke exposure: No Alcohol intake: never Lives independently: Yes Household members: spouse and other Details: children rotate staying at night Housing: House Marital status: Current occupational status: retired History of recent travel: No Current gender identity: Female Physical Exam Const: GENERAL APPEARANCE: cooperative and in distress ORIENTATION/CONSCIOUSNESS: Yes awake and Yes oriented to person HENMT: COMMON NORMALS: moist oral mucous membranes (moderate ) Neck/C-Spine: GENERAL: Yes normal visual inspection Chest: COMMONS NORMALS: inspection of chest normal Resp: COMMON NORMALS: normal respiratory effort and clear to auscultation bilaterally AUSCULTATION: clear to auscultation bilaterally Cardio: COMMON NORMALS: regular rate and regular rhythm RATE: regular rate RHYTHM: regular rhythm PERIPHERAL PULSES: brachial pulses present and radial pulses present GI: COMMON NORMALS: soft to palpation AUSCULTATION: Yes normoactive bowel sounds PALPATION: Yes soft : COMMON NORMALS: Yes no CVA tenderness BLADDER/KIDNEY EXAM: Yes no CVA tenderness Back/Pelvis: COMMON NORMALS: no CVA tenderness OTHER: tender over the right proximal femur Extremity: GENERAL: Yes edema (+3 on right +1 on left) Neuro: SENSORIUM/ORIENTATION: Yes oriented to person Psych: COMMON NORMALS: speech normal SPEECH: Yes normal speech Skin: TRAUMA: abrasion (right calf) Course Reevaluation(s): Time: 12:51 Reevaluation #2: Consult To Vital Signs: Vital signs: Vital Signs Temperature 98.0 F 12/12/19 11:04 Pulse Rate 66 12/12/19 11:04 Respiratory Rate 17 12/12/19 12:03 Blood Pressure 138/67 12/12/19 11:04 Pulse Oximetry 96 12/12/19 12:03 MDM - Altered Mental Status MDM Narrative: Medical decision making narrative: Pt recently had hip surgery fro fracture, since she has been at [facility] past few days she has been less responsive and wont get pu and get around, .she will talk or respond on and off. Pt is currently on cipro and flagyl for diverticulitis, she has some tenderness left lower quadrant. pt has some opacity in her cxr suggestive on pneumonia vs atelectasis, . Pt will need to be put in obs and Dr Wick states to just continue hr cipro and flagy and he will assess her. Pt has a uti which is likely causing her altered mental status Lab Data: Labs: Lab Results 12/12/19 12/12/19 12/12/19 Range/Units 11:39 11:39 11:39 WBC 13.3 H (4.0-10.0) 10^3/ uL RBC 3.26 L (4.1-5.3) 10^6/u L Hgb 10.0 L (11.5-15.3) g/dL Hct 32.4 L (37.0-47.0) % MCV 99.4 H (81-99) fL MCH 30.7 (28.0-34.0) pg MCHC 30.9 (30.0-36.0) g/dL RDW 14.2 (12.1-15.1) % Plt Count 667 H (130-400) 10^3/c mm MPV 9.2 (7.4-10.4) fL Neut % (Auto) 85.8 % Lymph % (Auto) 7.2 % Davison % (Auto) 4.8 % Eos % (Auto) 0.9 % Baso % (Auto) 0.7 % Neut # (Auto) 11.4 H (1.8-7.7) 10^3/u L Lymph # (Auto) 1.0 (0.8-4.8) 10^3/u L Davison # (Auto) 0.6 (0.2-0.9) 10^3/u L Eos # (Auto) 0.1 (0.0-0.8) 10^3/u L Baso # (Auto) 0.1 (0.0-0.1) 10^3/u L Nucleated RBC % (a uto) 0 % Nucleated RBCs # 0.0 /100WBC Sodium 142 (136-145) mmol/L Potassium 3.9 (3.5-5.1) mmol/L Chloride 99 (98-107) mmol/L Carbon Dioxide 37 H (22-29) mmol/L Anion Gap 9.9 (5-19) BUN 12 (8-23) mg/dL Creatinine 0.8 (0.5-0.9) mg/dL Glucose 74 (65-115) mg/dL Calculated Osmolal ity 289 (285-295) mOsm/k g Lactate 1.7 (0.5-2.2) mmol/L Calcium 9.7 (8.5-10.5) mg/dL Total Bilirubin 0.7 (0.15-1.2) mg/dL AST 30 (0-32) U/L ALT 12 (0-33) U/L Alkaline Phosphata se 230 H (35-105) IU/L Total Protein 7.0 (6.6-8.7) g/dL Albumin 3.5 (3.5-5.2) g/dL Globulin 3.5 (1.3-4.6) g/dL Urine Color (Yellow) Urine Appearance (CLEAR) Urine pH (5-7) Ur Specific Gravit y (1.005-1.030) Urine Protein (Negative) Urine Glucose (UA) (Normal) Urine Ketones (Negative) Urine Blood (Negative) Urine Nitrate (Negative) Urine Bilirubin (NEGATIVE) Prot Sulfosalicyli c Acd Urine Urobilinogen (Negative) mg/dL Ur Leukocyte Grecia ase (Negative) Urine RBC (0-2) /hpf Urine WBC (0-5) /hpf Ur Squamous Epith Cells (0-5) Urine Bacteria (NONE) 12/12/19 Range/Units 12:34 WBC (4.0-10.0) 10^3/ uL RBC (4.1-5.3) 10^6/u L Hgb (11.5-15.3) g/dL Hct (37.0-47.0) % MCV (81-99) fL MCH (28.0-34.0) pg MCHC (30.0-36.0) g/dL RDW (12.1-15.1) % Plt Count (130-400) 10^3/c mm MPV (7.4-10.4) fL Neut % (Auto) % Lymph % (Auto) % Davison % (Auto) % Eos % (Auto) % Baso % (Auto) % Neut # (Auto) (1.8-7.7) 10^3/u L Lymph # (Auto) (0.8-4.8) 10^3/u L Davison # (Auto) (0.2-0.9) 10^3/u L Eos # (Auto) (0.0-0.8) 10^3/u L Baso # (Auto) (0.0-0.1) 10^3/u L Nucleated RBC % (a uto) % Nucleated RBCs # /100WBC Sodium (136-145) mmol/L Potassium (3.5-5.1) mmol/L Chloride (98-107) mmol/L Carbon Dioxide (22-29) mmol/L Anion Gap (5-19) BUN (8-23) mg/dL Creatinine (0.5-0.9) mg/dL Glucose (65-115) mg/dL Calculated Osmolal ity (285-295) mOsm/k g Lactate (0.5-2.2) mmol/L Calcium (8.5-10.5) mg/dL Total Bilirubin (0.15-1.2) mg/dL AST (0-32) U/L ALT (0-33) U/L Alkaline Phosphata se (35-105) IU/L Total Protein (6.6-8.7) g/dL Albumin (3.5-5.2) g/dL Globulin (1.3-4.6) g/dL Urine Color Yellow (Yellow) Urine Appearance Clear (CLEAR) Urine pH 8 H (5-7) Ur Specific Gravit y 1.010 (1.005-1.030) Urine Protein 1+ H (Negative) Urine Glucose (UA) Norm (Normal) Urine Ketones Negative (Negative) Urine Blood Neg (Negative) Urine Nitrate Negative (Negative) Urine Bilirubin Neg (NEGATIVE) Prot Sulfosalicyli c Acd Positive Urine Urobilinogen Norm (Negative) mg/dL Ur Leukocyte Grecia ase 1+ H (Negative) Urine RBC None (0-2) /hpf Urine WBC 25-40 H (0-5) /hpf Ur Squamous Epith Cells Rare (0-5) Urine Bacteria 1+ H (NONE) Imaging Data^: Other Xray: Radiologist's impression: [place] [address] XRay Report Signed Patient: Milagro Salcedoit #: [id number] : 5Acct#:[id number] Age/Sex: 84 / FADM Date: 12/12/19 Loc: ERRoom/Bed: Attending Dr: Ordering Provider/Ordering MD: Vania Trent DO Date of Service: 12/12/19 Procedure(s): XR hip RT 2-3V wo/w pel* [id number] Accession Number(s): [id number] Report Number: [id number] PROCEDURE INFORMATION: Exam: XR Right Hip with Pelvis when Performed Exam date and time: 12/12/2019 11:30 AM Age: 84 years old Clinical indication: Hip pain; Right hip; Prior surgery; Additional info: S/P surgery pain TECHNIQUE: Imaging protocol: XR Right hip with pelvis when performed. Views: 1 view. COMPARISON: CR (PELVIS, ) 11/26/2019 6:06 PM FINDINGS: Bones/joints: The previous displaced, comminuted right proximal femur fracture is in improved alignment, status post intramedullary mina and dynamic screw fixation. Linear lateral and superior fracture fragments are noted. Subtle lucency through the lesser trochanter is noted without evidence of displacement. No evidence of hardware compromise. Soft tissues: Unremarkable for technique. XR/XR hip RT 2-3V wo/w pel* [id number] IMPRESSION: 1. The previous comminuted proximal right femur fracture is in improved alignment, status post intramedullary mina and dynamic screw fixation. Alignment appears grossly anatomic. There is a subtle lucency through the lesser trochanter, which may reflect residual or resolving healing change. No other evidence of displaced fracture or hardware compromise. Dictated By:Juan Carter MD Signed By:Juan Carter MDSigned Date/Time:12/12/191228 DD/ 1228 CT Head: Radiologist's impression: [place] [address] CT Scan Report Signed Patient: Milagro Salcedo #: [id number] : 5Acct#:[id number] Age/Sex: 84 / FADM Date: 12/12/19 Loc: ERRoom/Bed: Attending Dr: Ordering Provider/Ordering MD: Vania Trent DO Date of Service: 12/12/19 Procedure(s): CT head wo con* [id number] Accession Number(s): [id number] Report Number: [id number] PROCEDURE INFORMATION: Exam: CT Head Without Contrast Exam date and time: 12/12/2019 12:06 PM Age: 84 years old Clinical indication: Altered mental status/memory loss; Confusion or disorientation; Additional info: Dizziness TECHNIQUE: Imaging protocol: Computed tomography of the head without contrast. Total DLP: 859.49 mGy-cm Radiation optimization: All CT scans at this facility use at least one of these dose optimization techniques: automated exposure control; mA and/or kV adjustment per patient size (includes targeted exams where dose is matched to clinical indication); or iterative reconstruction. COMPARISON: CT head wo con* [id number] 11/26/2019 6:08 PM FINDINGS: Brain: There is no evidence of acute intracranial hemorrhage, midline shift or mass effect. There are stable scattered hypoattenuating regions within the subcortical and periventricular white matter, which are non specific and are most commonly associated with chronic microvascular ischemic change. There is no CT evidence of an acute transcortical infaction. Ventricles: There is unchanged parenchymal volume loss with compensatory prominence of the ventricles and CSF containing spaces. Bones/joints: No acute fracture. Sinuses: Visualized sinuses are unremarkable. No fluid levels. Mastoid air cells: Visualized mastoid air cells are well aerated. Soft tissues: Unremarkable. Vasculature: Atherosclerotic calcifications are noted. CT/CT head wo con* [id number] IMPRESSION: 1. Stable examination without CT evidence of an acute intracranial process. Radiation Dose CTDIVOL = (mGy): DLP = 859.49 (mGy-cm) Dictated By:Juan Carter MD Signed By:Juan Carter MDSigned Date/Time:12/12/19 1232 DD/ 1231 CXR: Radiologist's impression: [place] [address] XRay Report Signed Patient: Milagro Salcedo #: [id number] : 5Acct#:[id number] Age/Sex: 84 / FADM Date: 12/12/19 Loc: ERRoom/Bed: Attending Dr: Ordering Provider/Ordering MD: Vania Trent DO Date of Service: 12/12/19 Procedure(s): XR chest 1V portable [id number] Accession Number(s): [id number] Report Number: [id number] PROCEDURE INFORMATION: Exam: XR Chest, 1 View Exam date and time: 12/12/2019 11:30 AM Age: 84 years old Clinical indication: Shortness of breath; Additional info: Pneumonia TECHNIQUE: Imaging protocol: XR of the chest Views: 1 view. COMPARISON: CR Chest 1 [place] [id number] 06/21/2013 2:21 AM FINDINGS: Lungs: There is a streaky retrocardiac opacity. Calcified granulomas along the left lung base are again noted. Pleural space: No significant pleural effusion. No discernible pneumothorax. Heart/Mediastinum: The heart appears enlarged and unchanged. Bones/joints: There are multilevel degenerative changes of the spine. XR/XR chest 1V portable [id number] IMPRESSION: 1. Streaky retrocardiac opacity, which may reflect atelectasis versus early pneumonia in the correct clinical setting. Consider follow-up evaluation in 4-6 weeks to assess for resolution. Dictated By:Juan Carter MD Signed By:Juan Carter MDSigned Date/Time:12/12/19 1231 DD/ 1230 Discharge Plan Discharge Patient Disposition: Placed in Observation Admit Provider: Rashid Wick Clinical Impression: History of hip surgery, Atelectasis, Acute UTI Altered mental status Qualifiers: Altered mental status type: somnolence Qualified Code(s): R40.0 - Somnolence Coding Level of Care Code ED Domestic Helper for Chg Fwd Exam Comprehensive The documentation recorded by the Amarjit wilkinson Stephanie Lyn, accurately reflects the service I personally performed and the decisions made by Miley delgado Sonia M, DO Dec 12, 2019 11:02
--- NOTE | 2019-12-12 11:28 | XRR_ITS ---
PROCEDURE INFORMATION: Exam: XR Chest, 1 View Exam date and time: 12/12/2019 11:30 AM Age: 84 years old Clinical indication: Shortness of breath; Additional info: Pneumonia TECHNIQUE: Imaging protocol: XR of the chest Views: 1 view. COMPARISON: CR Chest 1 [place] [id number] 06/21/2013 2:21 AM FINDINGS: Lungs: There is a streaky retrocardiac opacity. Calcified granulomas along the left lung base are again noted. Pleural space: No significant pleural effusion. No discernible pneumothorax. Heart/Mediastinum: The heart appears enlarged and unchanged. Bones/joints: There are multilevel degenerative changes of the spine. XR/XR chest 1V portable [id number] IMPRESSION: 1. Streaky retrocardiac opacity, which may reflect atelectasis versus early pneumonia in the correct clinical setting. Consider follow-up evaluation in 4-6 weeks to assess for resolution.
--- NOTE | 2019-12-12 11:28 | ECG_ITS ---
Measurements Intervals Jay Rate: 74 P: 14 OH: 181 QRS: -31 QRSD: 96 T: -23 QT: 438 QTc: 486 SINUS RHYTHM MARKED LEFT AXIS DEVIATION [QRS AXIS < -30] MODERATE VOLTAGE CRITERIA FOR LVH, CONSIDER NORMAL VARIANT [MEETS CRITERIA IN ONE OF: R(aVL), S(V1), R(V5), R(V5/V6)+S(V1)] POSSIBLE ANTERIOR MYOCARDIAL INFARCTION [30 ms Q WAVE IN V3/V4, OR R < 0.2 mV IN V4], OF INDETERMINATE AGE Compared to ECG 11/26/2019 18:24:29 Left-axis deviation now present Sinus bradycardia no longer present Myocardial infarct finding still present Electronically Signed On 12-13-2019 17:20:59 CDT by Rishi Aguayo M.D. [email or web address]
--- NOTE | 2019-12-12 11:29 | XRR_ITS ---
PROCEDURE INFORMATION: Exam: XR Right Hip with Pelvis when Performed Exam date and time: 12/12/2019 11:30 AM Age: 84 years old Clinical indication: Hip pain; Right hip; Prior surgery; Additional info: S/P surgery pain TECHNIQUE: Imaging protocol: XR Right hip with pelvis when performed. Views: 1 view. COMPARISON: CR (PELVIS, ) 11/26/2019 6:06 PM FINDINGS: Bones/joints: The previous displaced, comminuted right proximal femur fracture is in improved alignment, status post intramedullary mina and dynamic screw fixation. Linear lateral and superior fracture fragments are noted. Subtle lucency through the lesser trochanter is noted without evidence of displacement. No evidence of hardware compromise. Soft tissues: Unremarkable for technique. XR/XR hip RT 2-3V wo/w pel* [id number] IMPRESSION: 1. The previous comminuted proximal right femur fracture is in improved alignment, status post intramedullary mina and dynamic screw fixation. Alignment appears grossly anatomic. There is a subtle lucency through the lesser trochanter, which may reflect residual or resolving healing change. No other evidence of displaced fracture or hardware compromise.
--- NOTE | 2019-12-12 11:42 | PC.NURSE ---
Patient reports low back pain. Patient unable to rate pain.
[2019-12-12 11:49] LABS: Basophils # 0.1 10^3/uL (0.0-0.1); Basophils % 0.7 %; Eosinophils # 0.1 10^3/uL (0.0-0.8); Eosinophils % 0.9 %; Hematocrit 32.4 % (37.0-47.0); Lymphocytes % 7.2 %; Mean Corpuscular HGB Conc 30.9 g/dL (30.0-36.0); Mean Corpuscular Hemoglobin 30.7 pg (28.0-34.0); Mean Corpuscular Volume 99.4 fL (81-99); Mean Platelet Volume 9.2 fL (7.4-10.4); Monocytes # 0.6 10^3/uL (0.2-0.9); Monocytes % 4.8 %; Neutrophils # 11.4 10^3/uL (1.8-7.7); Neutrophils % 85.8 %; Nucleated Red Blood Cells % 0 %; Platelet Count 667 10^3/cmm (130-400); Red Blood Count 3.26 10^6/uL (4.1-5.3); Red Cell Distribution Width 14.2 % (12.1-15.1); White Blood Count 13.3 10^3/uL (4.0-10.0)
[2019-12-12] MEDS: ondansetron 2 mg/ML SDV 2 mL 4 MG IVP (12:03)
[2019-12-12] MEDS: morphine 4 mg/mL SDV 1 mL IVP (12:03)
--- NOTE | 2019-12-12 12:05 | CTR_ITS ---
PROCEDURE INFORMATION: Exam: CT Head Without Contrast Exam date and time: 12/12/2019 12:06 PM Age: 84 years old Clinical indication: Altered mental status/memory loss; Confusion or disorientation; Additional info: Dizziness TECHNIQUE: Imaging protocol: Computed tomography of the head without contrast. Total DLP: 859.49 mGy-cm Radiation optimization: All CT scans at this facility use at least one of these dose optimization techniques: automated exposure control; mA and/or kV adjustment per patient size (includes targeted exams where dose is matched to clinical indication); or iterative reconstruction. COMPARISON: CT head wo con* [id number] 11/26/2019 6:08 PM FINDINGS: Brain: There is no evidence of acute intracranial hemorrhage, midline shift or mass effect. There are stable scattered hypoattenuating regions within the subcortical and periventricular white matter, which are non specific and are most commonly associated with chronic microvascular ischemic change. There is no CT evidence of an acute transcortical infaction. Ventricles: There is unchanged parenchymal volume loss with compensatory prominence of the ventricles and CSF containing spaces. Bones/joints: No acute fracture. Sinuses: Visualized sinuses are unremarkable. No fluid levels. Mastoid air cells: Visualized mastoid air cells are well aerated. Soft tissues: Unremarkable. Vasculature: Atherosclerotic calcifications are noted. CT/CT head wo con* [id number] IMPRESSION: 1. Stable examination without CT evidence of an acute intracranial process. Radiation Dose CTDIVOL = (mGy): DLP = 859.49 (mGy-cm)
[2019-12-12 12:07] LABS: Alanine Aminotransferase 12 U/L (0-33); Albumin Level 3.5 g/dL (3.5-5.2); Alkaline Phosphatase 230 IU/L (35-105); Anion Gap 9.9 (5-19); Aspartate Amino Transferase 30 U/L (0-32); Blood Urea Nitrogen 12 mg/dL (8-23); Calcium 9.7 mg/dL (8.5-10.5); Carbon Dioxide 37 mmol/L (22-29); Chloride 99 mmol/L (98-107); Globulin 3.5 g/dL (1.3-4.6); Glucose 74 mg/dL (65-115); Lactate (Lactic Acid level) 1.7 mmol/L (0.5-2.2); Osmolality Calculated 289 mOsm/kg (285-295); Potassium 3.9 mmol/L (3.5-5.1); Sodium 142 mmol/L (136-145); Total Bilirubin 0.7 mg/dL (0.15-1.2)
[2019-12-12 13:00] LABS: Protein Urine 1+ (Negative); Urine Appearance Clear (CLEAR); Urine Color Yellow (Yellow); pH Urine 8 (5-7)
[2019-12-12 13:03] LABS: Bilirubin Urine Neg (NEGATIVE); Blood Urine Neg (Negative); Glucose Urine UA Norm (Normal); Ketones Urine Negative (Negative); Nitrate Urine Negative (Negative)
[2019-12-12 13:04] LABS: Add Urine Microscopic? YES; Leukocyte Esterase Urine 1+ (Negative); Sulfosalicylic Acid Urine Positive; Urobilinogen Urine Norm (Negative)
[2019-12-12 13:05] LABS: Add Urine Culture? Yes; Bacteria Urine 1+; Squamous Epithelial Cell Urine RARE (0-5); WBC Urine 25-40 /hpf (0-5)
--- NOTE | 2019-12-12 13:43 | P.HP_ITS ---
Providers/Chief Complaint Primary Care Provider: RASHMI Grove Chief Complaint: AMS History of Present Illness Milagro Salcedo is a 84 year old female, currently resident of nursing facility for rehabilitation after recent hip surgery. Since yesterday patient noted to have gradually worsening mental status changes and was brought to emergency department for further evaluation. She is very lethargic and unable to provide any history. Her head CT was unremarkable. Her hip/pelvis x-ray without acute abnormal findings. Her daughters are all the staying at nursing facility with her and last night patient denied any shortness of breath or chest pain but did complain of some left-sided abdominal pain and because of previous history of diverticulitis she was started on ciprofloxacin and Flagyl. Apparently patient was complaining of nonspecific abdominal pain for the last 1 week. She has previous history of coronary artery disease with stent placed with last intervention approximately 2 years ago. She is diabetic and recently started on insulin. Family denied previous history of stroke. Review of Systems Narrative: Unable to obtain due to patient's mental status. Family reported she was complaining of right knee pain with ambulation. Medications/Allergies Home Medications Medication Instructions Recorded Confirmed Last Taken Type insulin glargine [Lantus Solostar 20 unit SUBCUT BID 12/12/19 12/12/19 12/12/19 History U-100 Insulin] insulin regular human [Novolin R See Rx Instructions .ROUTE .COMPLEX 12/12/19 12/12/19 Unknown History Regular U-100 Insuln] metronidazole [Flagyl] 250 mg PO QID 12/12/19 12/12/19 12/12/19 History Allergies Allergy/AdvReac Type Severity Reaction Status Date / Time atorvastatin [From Lipitor] Allergy ADR-Cramping Verified 11/26/19 17:49 of the Muscles Penicillins Allergy ALGY-Rash Verified 11/26/19 17:49 simvastatin [From Zocor] Allergy ADR-Cramping Verified 11/26/19 17:49 of the Muscles Sulfa (Sulfonamide Allergy ALGY-Rash Verified 11/26/19 17:49 Antibiotics) PFSH Acute PFSH: Medical History CAD (coronary artery disease) Dementia Diabetes mellitus diet controlled to date Hyperlipemia Hypertension Muscle wasting and atrophy, not elsewhere classified, multiple sites Osteoarthritis Surgical History History of colon resection History of coronary artery stent placement Hx of appendectomy Hx of hysterectomy Family History Family/Other Hypertension Heart disease Dementia CAD (coronary artery disease) Hyperlipidemia Social History Smoking and tobacco status: never smoked Second hand smoke exposure: No Alcohol intake: never Lives independently: Yes Household members: spouse and other Details: children rotate staying at night Housing: House Marital status: Current occupational status: retired History of recent travel: No Current gender identity: Female Vitals/I&O/Wt Last Vital Signs Temp 98.0 F 12/12/19 11:04 Pulse 66 12/12/19 11:04 Resp 17 12/12/19 12:03 BP 138/67 12/12/19 11:04 Pulse Ox 96 12/12/19 12:03 Weight last 48 hrs Weight 57.652 kg Physical Exam Const: COMMON NORMALS: no apparent distress OTHER: Lethargic and disoriented. HENMT: COMMON NORMALS: normocephalic and head/scalp atraumatic HEAD & SCALP: normocephalic and atraumatic Eye: COMMON NORMALS: EOMs intact bilaterally, conjunctivae normal and no scleral icterus CONJUNCTIVA: Yes conjunctivae normal Neck/C-Spine: COMMON NORMALS: no lymphadenopathy and no meningeal signs Lymph: LYMPHATIC: no lymphadenopathy noted Chest: COMMONS NORMALS: palpation of chest normal Resp: COMMON NORMALS: no use of accessory muscles and clear to auscultation bilaterally AUSCULTATION: clear to auscultation bilaterally Cardio: COMMON NORMALS: regular rate, regular rhythm and no murmurs RATE: regular rate RHYTHM: regular rhythm OTHER: 1+ right lower extremity edema. GI: COMMON NORMALS: soft to palpation; negative for non-tender (Appears slightly tender at the left lower quadrant as patient grimaced) PALPATION: Yes soft RECTAL EXAM: deferred : COMMON NORMALS: Yes no CVA tenderness OTHER: Appears to have some left CVA tenderness. Extremity: COMMON NORMALS: normal to inspection and normal capillary refill Neuro: COMMON NORMALS: no focal motor deficits (On gross examination) SENSORIUM/ORIENTATION: Yes orientation impaired and Yes lethargic MENINGEAL SIGNS: Yes no meningeal signs Psych: THOUGHT PROCESS: abnormal Skin: COMMON NORMALS: no rashes or lesions noted GENERAL SKIN EXAM: no rashes or lesions noted (Incisions from recent hip surgery look good without signs of infection.) Data : 12/12/19 11:39 12/12/19 11:39 Micro: Microbiology 12/12/19 11:39 Blood Culture - Preliminary Blood SPECIMEN COLLECTED 12/12/19 11:35 Blood Culture - Preliminary Blood SPECIMEN COLLECTED A&P Assessment and plan (1) Altered mental status: With lethargy. Some degree of toxic encephalopathy cannot be ruled out. Patient does have some underlying dementia and currently unable to assess her mental status completely. Status: Acute Qualifiers: Altered mental status type: somnolence Qualified Code(s): R40.0 - Somnolence Code(s): R41.82 - Altered mental status, unspecified (2) Urinary tract infection: Does not meet sepsis criteria. Status: Acute Code(s): N39.0 - Urinary tract infection, site not specified Additional A&P Information Diabetes mellitus type 2 History of coronary disease requiring intervention. Pulmonary infiltrates. Possible pneumonia. Abdominal pain. Likely secondary to cystitis. Thrombocytosis and leukocytosis. This is likely secondary to underlying infectious process. PLAN: Gentle IV hydration with LR Will change antibiotic to ceftriaxone as patient did not get better after initiation of ciprofloxacin and Flagyl. Will request renal ultrasound and consider CT scan of the abdomen/pelvis if patient is not improving. Obtain right lower extremity venous ultrasound to rule out DVT and obtain right knee x-ray as patient was complaining of pain. Request physical therapy in a.m. And if patient's mental status improves we could possibly dismiss patient back to nursing facility tomorrow therefore will place patient in observation. Attestations Medical Necessity Statement*: Patient with altered mental status and UTI requires observation for monitoring and treatment. I expect patient will require less than two midnights. Coding Level of Care Code Acute Primary Special Education Teacher for Chg Fwd Diagnoses Altered mental status R40.0 Altered mental status type: somnolence Urinary tract infection N39.0
--- NOTE | 2019-12-12 14:08 | USR_ITS ---
PROCEDURE INFORMATION: Exam: US Duplex Right Lower Extremity Veins, Limited Exam date and time: 12/12/2019 2:09 PM Age: 84 years old Clinical indication: Swelling (edema) of limb; Lower extremity, right; Prior surgery; Surgery date: <1 month; Surgery type: Right hip surgery (approximately 2 weeks ago) TECHNIQUE: Imaging protocol: Real-time Duplex ultrasound of the Right Lower Extremity with 2-D jewell scale, color Doppler flow and spectral waveform analysis with image documentation. Limited exam was focused on the right lower extremity veins. COMPARISON: No relevant prior studies available. FINDINGS: Right deep veins: Unremarkable. The common femoral, femoral, proximal profunda femoral and popliteal veins are patent without thrombus. Variant duplication of the right femoral vein is questioned. Normal Doppler waveforms. Normal compressibility and/or augmentation response. Right superficial veins: Unremarkable. Saphenofemoral junction is patent without thrombus. Soft tissues: Unremarkable. US/[place] [id number] IMPRESSION: No acute findings. No evidence of deep vein thrombosis.
--- NOTE | 2019-12-12 15:00 | XR_ITS ---
WS: [id number] XR knee RT 1-2V [id number] REASON FOR EXAM: Pain FINDINGS: Loss of the medial meniscal space with spurring off the medial condyle of the femur and med ial tibial plateau. There is spurring off the spine of the tibia. A barajas pin is seen in good position in the femur. The patellofemoral articulation show degenerate changes. The patella tibial space is normal. 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 Intramedullary pin in the femur good position.
--- NOTE | 2019-12-12 15:28 | PC.NURSE ---
bruising noted to right leg from hip to ankle from surgery. patient has incision x2 to right lateral leg, no drainage or redness noted.
[2019-12-12] MEDS: enoxaparin 40 mg/0.4 mL Syringe SUBCUT (16:50)
[2019-12-12] MEDS: lactated ringers 1,000 ML 100 ML IV (16:50)
[2019-12-12] MEDS: cefTRIAXone 1,000 MG in sodium chloride 0.9% (plus) 50 ML 100 MG IV (17:27)
[2019-12-12] MEDS: gabapentin 300 mg Capsule 600 MG PO (18:12)
[2019-12-12] MEDS: metoprolol tartrate 25 mg Tablet 12.5 MG PO (18:12)
[2019-12-12 18:53] LABS: Glucose Point of Care 55 mg/dL (70-110)
[2019-12-12 18:53] LABS: Glucose Point of Care 88 mg/dL (70-110)
--- NOTE | 2019-12-12 19:00 | PC.NURSE ---
Blood Sugar Check Blood Sugar every hour. If blood sugar is less than 70 give amp of D50. Per Dr Wick
[2019-12-12 20:30] LABS: Glucose Point of Care 128 mg/dL (70-110)
[2019-12-13] VITALS (10 sets, daily range): BP systolic 134–179; BP diastolic 61–77; PULSE 79–111; RESP 17–20; TEMP 36.7–37.2; O2SAT 92–96
[2019-12-13] MEDS: lactated ringers 1,000 ML 100 ML IV ×2 (01:22→11:53)
[2019-12-13 02:49] LABS: Glucose Point of Care 45 mg/dL (70-110)
[2019-12-13] MEDS: dextrose 50% syringe 50 mL IVP (03:08)
[2019-12-13 03:40] LABS: Glucose Point of Care 152 mg/dL (70-110)
[2019-12-13 04:35] LABS: Glucose Point of Care 115 mg/dL (70-110)
[2019-12-13] MEDS: isosorbide mononitrate ER 60 mg Tablet PO (05:25)
[2019-12-13] MEDS: cefTRIAXone 1,000 MG in sodium chloride 0.9% (plus) 50 ML 100 MG IV ×2 (05:26→15:34)
[2019-12-13 05:30] LABS: Basophils # 0.1 10^3/uL (0.0-0.1); Basophils % 1.1 %; Eosinophils # 0.1 10^3/uL (0.0-0.8); Eosinophils % 1.5 %; Hematocrit 33.7 % (37.0-47.0); Lymphocytes # 1.4 10^3/uL (0.8-4.8); Mean Corpuscular HGB Conc 29.7 g/dL (30.0-36.0); Mean Corpuscular Volume 104.3 fL (81-99); Mean Platelet Volume 9.7 fL (7.4-10.4); Monocytes # 0.5 10^3/uL (0.2-0.9); Monocytes % 5.3 %; Neutrophils # 6.4 10^3/uL (1.8-7.7); Neutrophils % 75.7 %; Nucleated Red Blood Cells % 0 %; Platelet Count 582 10^3/cmm (130-400); Red Blood Count 3.23 10^6/uL (4.1-5.3); Red Cell Distribution Width 14.4 % (12.1-15.1); White Blood Count 8.4 10^3/uL (4.0-10.0)
--- NOTE | 2019-12-13 06:00 | US_ITS ---
WS: [id number] RENAL ULTRASOUND REASON FOR EXAM: UTI with left-sided abdominal pain TECHNIQUE: Grayscale and Doppler ultrasound examination of the kidneys. FINDINGS: Right kidney: Right kidney measures 9.9 cm x 5.4 cm x 4.9 cm. Cortex measured 1.72 cm. Left kidney: Left kidney measures 9.8 cm x 4.8 cm x 4.0 cm. A prominent cyst measures 3.49 x 3.85 cm. The aorta was normal measured 1.68 cm. The urinary bladder partially collapsed show no gross abnormalities. US/US renal BI* [id number] IMPRESSION: Benign cyst of the left kidney.
[2019-12-13 06:01] LABS: Alanine Aminotransferase 11 U/L (0-33); Albumin Level 3.2 g/dL (3.5-5.2); Alkaline Phosphatase 203 IU/L (35-105); Anion Gap 12.1 (5-19); Blood Urea Nitrogen 14 mg/dL (8-23); Calcium 9.5 mg/dL (8.5-10.5); Carbon Dioxide 33 mmol/L (22-29); Chloride 102 mmol/L (98-107); Globulin 3.3 g/dL (1.3-4.6); Glucose 92 mg/dL (65-115); Magnesium 2.1 mg/dL (1.7-2.3); Osmolality Calculated 292 mOsm/kg (285-295); Potassium 4.1 mmol/L (3.5-5.1); Sodium 143 mmol/L (136-145); Total Bilirubin 0.6 mg/dL (0.15-1.2); Total Protein 6.5 g/dL (6.6-8.7)
[2019-12-13 06:08] LABS: Aspartate Amino Transferase 27 U/L (0-32)
[2019-12-13 06:41] LABS: Glucose Point of Care 112 mg/dL (70-110)
--- NOTE | 2019-12-13 07:01 | PC.NURSE ---
LEONEL Chow Held morning Lantus per Dr Wick
[2019-12-13] MEDS: amlodipine 5 mg Tablet PO (08:51)
[2019-12-13] MEDS: metoprolol tartrate 25 mg Tablet 12.5 MG PO ×2 (08:51→17:15)
[2019-12-13] MEDS: gabapentin 300 mg Capsule 600 MG PO ×2 (08:51→17:16)
[2019-12-13 11:04] LABS: Glucose Point of Care 124 mg/dL (70-110)
--- NOTE | 2019-12-13 12:36 | PC.CHAP ---
Pastoral Care Encounter/Spiritual Assessment Type of Contact [] Declined linter saw sharpener visit [] Patient/Family/Request visit [] Outpatient visit [] Follow-up visit [] Physician referral [] Code/Alert [x] Routine visit [] Staff referral [] Actively dying [] Patient sleeping [] Family support [] [] Out of room [] Palliative care [] [] Receiving care in room [] Pre-surgical visit [] Trauma [] Long length of stay [] ICU visit [] Other: Relational/Emotional Strength [x] Patient feels connected with others/family/visitors/staff [] Distress [] Loneliness/isolation [] Abandonment Spirituality of Patient [x] Person of Kelly [] Attends Sabianism of their Kelly [x] Believes in Prayer [] Reads Bible or Tenriism materials [] There are Spiritual issues to be addressed Bottle Blower Interventions [x] Prayer [x] Active listening [x] Non-anxious presence [x] Spiritual/emotional support [] Crisis/trauma care [x] Spiritual counseling [] Bereavement support [] Provided bereavement packet [] Provided Bible/devotional materials [] Provided toy/stuffed animal, coloring book to patient or family member [] Provided Communion [] Anointing/[place]oro [] Salvation [x] Completed spiritual assessment [] Other: Impact on Illness or Injury [] Angry [] Fearful [x] Anxious [] Often cries [] Exhaustion [x] Unable to work [x] Unable to attend yazdanism [] Unable to walk/stand [x] Unable to read [x] Unable to drive [] Unable to eat/drink [] Unable to sleep [] Unable to be with family [] Patient intubated [] Other: Summary Patient is retired and happy with her life. She is wanting to go home. Time spent with patient 10 min
[2019-12-13] MEDS: acetaminophen 325 mg Tablet 650 MG PO ×2 (13:45→20:47)
--- NOTE | 2019-12-13 15:17 | PC.SOCIAL ---
Patient was given the Medicare BPMI beneficiary letter. Original is signed and placed in the chart.
[2019-12-13] MEDS: enoxaparin 40 mg/0.4 mL Syringe SUBCUT (15:34)
--- NOTE | 2019-12-13 16:45 | PC.NURSE ---
patient's blood sugar is 63. gave patient two orange juices and notified Dr Odom
[2019-12-13 16:56] LABS: Glucose Point of Care 63 mg/dL (70-110)
[2019-12-13 17:27] LABS: Glucose Point of Care 150 mg/dL (70-110)
--- NOTE | 2019-12-13 17:47 | P.PN_ITS ---
Subjective Subjective: Interval history: Chart reviewed, has had some intermittent low normal blood sugar. Will discontinue scheduled insulin and switch IV fluid to include dextrose to prevent hypoglycemia. AM labs noted, urine culture growing yeast species, blood cx prelim negative. Had trend towards hypertension so will increase dose of amlodipine and metoprolol. Patient seen and examined, quite disoriented though alert, son at bedside during my visit and states that patient was doing relatively well with therapy following her hip surgery. Her current mental status is not her baseline. Unable to provide correct and thinks she is at grocery store when asked where she is. Medications: Reviewed: Yes Medication Review Details: Active Medications Generic Name Dose Route Start Last Admin Trade Name Freq PRN Reason Stop Dose Admin Acetaminophen 650 mg 12/12/19 15:00 12/13/19 13:45 Tylenol PO 650 mg Q6H PRN Administration Mild/Mod Pain Or Temp >/= 101 Amlodipine Besylat e 5 mg 12/13/19 09:00 12/13/19 08:51 Norvasc PO 5 mg DAILY LANG Administration Enoxaparin Sodium 40 mg 12/12/19 16:00 12/13/19 15:34 Lovenox SUBCUT 40 mg Q24H LANG Administration Gabapentin 600 mg 12/12/19 18:00 12/13/19 17:16 Neurontin PO 600 mg BID LANG Administration Ceftriaxone Sodium 1,000 mg/ 50 mls @ 100 mls/ hr 12/12/19 16:00 12/13/19 15:34 Sodium Chloride IV 100 mls/hr Q12H LANG Administration Protocol Dextrose/Sodium Ch loride 1,000 mls @ 75 ml s/hr 12/13/19 18:00 Dextrose 5%-Sod Chloride 0.45% IV .[id number] LANG Insulin Aspart 0 unit 12/12/19 18:00 12/13/19 16:37 Novolog SUBCUT Not Given WM&BEDTIME LANG Protocol Insulin Glargine 20 unit 12/13/19 08:00 12/13/19 07:01 Lantus SUBCUT Not Given BREAKFAST LANG Isosorbide Mononit rate 60 mg 12/13/19 06:00 12/13/19 05:25 Imdur PO 60 mg QAM LANG Administration Metoprolol Tartrat e 12.5 mg 12/12/19 18:00 12/13/19 17:15 Lopressor PO 12.5 mg BID LANG Administration Ondansetron HCl 4 mg 12/12/19 15:00 Zofran IVP Q8H PRN vomiting, or N/V if npo Oxycodone/Acetamin ophen 1 tab 12/12/19 15:00 Percocet 5-325 M g PO Q4H PRN SEVERE PAIN Senna 17.2 mg 12/12/19 21:00 12/12/19 20:25 Senna Lax PO Not Given BEDTIME LANG atorvastatin [From Lipitor] Allergy (Verified 11/26/19 17:49) ADR-Cramping of the Muscles Penicillins Allergy (Verified 11/26/19 17:49) ALGY-Rash simvastatin [From Zocor] Allergy (Verified 11/26/19 17:49) ADR-Cramping of the Muscles Sulfa (Sulfonamide Antibiotics) Allergy (Verified 11/26/19 17:49) ALGY-Rash Vitals/I&O/Wt Last Vital Signs Temp 98.2 F 12/13/19 15:01 Pulse 87 12/13/19 15:01 Resp 18 12/13/19 15:01 BP 161/66 12/13/19 15:01 Pulse Ox 92 12/13/19 15:01 12/13/19 12/13/19 12/13/19 06:59 14:59 22:59 Intake Total 1310.000 / 1720.000 710 / 710 220 / 930 Balance 1310.000 / 1720.000 710 / 710 220 / 930 Weight last 48 hrs Weight 57.652 kg Physical Exam Const: COMMON NORMALS: no apparent distress GENERAL APPEARANCE: cooperative, comfortable and frail appearing ORIENTATION/CONSCIOUSNESS: Yes awake and Yes confused HENMT: COMMON NORMALS: normocephalic, head/scalp atraumatic, hearing grossly normal bilaterally and moist oral mucous membranes HEAD & SCALP: normocephalic and atraumatic Eye: COMMON NORMALS: PERRL, EOMs intact bilaterally and conjunctivae normal CONJUNCTIVA: Yes conjunctivae normal PUPIL: Yes PERRL Neck/C-Spine: COMMON NORMALS: full ROM GENERAL: Yes normal visual inspection and Yes trachea midline Resp: COMMON NORMALS: normal respiratory effort, no retractions, no use of accessory muscles and clear to auscultation bilaterally EFFORT & INSPECTION: Yes able to speak in complete sentences, Yes symmetric chest movement and No tachypneic AUSCULTATION: clear to auscultation bilaterally Cardio: COMMON NORMALS: regular rate, regular rhythm, S1 normal heart sound, S2 normal heart sound and no murmurs RATE: regular rate RHYTHM: regular rhythm HEART SOUNDS: S1 normal and S2 normal GI: COMMON NORMALS: normal to inspection, nondistended, normoactive bowel sounds, soft to palpation and non-tender PALPATION: Yes soft Extremity: COMMON NORMALS: normal to inspection, full ROM and no clubbing, cyanosis or edema; negative for no pedal edema Neuro: COMMON NORMALS: moves all extremities, no focal motor deficits and no sensory deficits noted Psych: COMMON NORMALS: mental status grossly normal, thought process normal, cooperative, affect normal and speech normal SPEECH: Yes normal speech THOUGHT PROCESS: normal thought process Skin: COMMON NORMALS: no rashes or lesions noted, no jaundice, no petechiae and no mottling GENERAL SKIN EXAM: no rashes or lesions noted Data : 12/13/19 05:15 12/13/19 05:15 Micro: Microbiology 12/12/19 11:39 Blood Culture - Preliminary Blood NEGATIVE TO DATE 12/12/19 11:35 Blood Culture - Preliminary Blood NEGATIVE TO DATE 12/12/19 12:34 Urine Culture - Preliminary Urine,Clean Catch Yeast species A&P Assessment and plan (1) Urinary tract infection: -UA indicative of infection -Urine culture growing yeast species -Has been on ceftriaxone, will not add antifungal coverage as no evidence of systemic infection at this time -was previously treated with Ciprofloxacin and Flagyl for presumed diverticu litis Status: Acute Qualifiers: Hematuria presence: without hematuria Urinary tract infection type: acute cystitis Qualified Code(s): N30.00 - Acute cystitis without hematuria Code(s): N39.0 - Urinary tract infection, site not specified (2) Altered mental status: -Altered mental status likely secondary to UTI and element of hypoglycemia given recent introduction of insulin secondary to diabetes -Has had some intermittent low normal blood sugar, will hold scheduled insulin and add D5 to IV fluid to prevent hypoglycemia, continue hypoglycemic precautions -Continue Accu-Cheks -Reorient as needed, fall precautions Status: Acute Qualifiers: Altered mental status type: somnolence Qualified Code(s): R40.0 - Somnolence Code(s): R41.82 - Altered mental status, unspecified (3) History of hip surgery: -Patient had recent right ORIF secondary to comminuted right intertrochanteric and subtrochanteric hip fracture done on 11/28/2019 -Repeat imaging shows IM nail in good position -Pain control as needed, fall precautions Status: Acute Code(s): Z98.890 - Other specified postprocedural states (4) Hypertension: -Noted trend towards hypertension so will increase dose of amlodipine and metoprolol -Continue to monitor vital signs Status: Acute Qualifiers: Hypertension type: essential hypertension Qualified Code(s): I10 - Essential (primary) hypertension Code(s): I10 - Essential (primary) hypertension Additional A&P Information -Advanced age -IDDM type II; recently started on insulin -Dementia -Hyperlipidemia -hx of CAD -diabetic diet as tolerated -DVT ppx with Lovenox -venous duplex negative for DVT -renal US: benign L renal cyst -Dispo: return to [facility] -Code status: FULL code Attestations Medical Necessity Statement*: Patient requires hospitalization for continued treatment of UTI, hypoglycemia; pending return of mental status to baseline. Time Spent in Patient Care: Greater than 35 minutes (>than 50% of time spent in counselling and/or direct pt care on unit) . Coding Level of Care Code Acute Corrosion Control Fitter for Chg Fwd Exam Comprehensive Diagnoses Urinary tract infection N30.00 Hematuria presence: without hematuria Urinary tract infection type: acute cystitis Altered mental status R40.0 Altered mental status type: somnolence History of hip surgery Z98.890 Hypertension I10 Hypertension type: essential hypertension
[2019-12-13] MEDS: dextrose 5%-sod chloride 0.45% 1,000 ML 75 ML IV (18:49)
[2019-12-13] MEDS: sennosides 8.6 mg Tablet 17.2 MG PO (20:47)
[2019-12-13 21:02] LABS: Glucose Point of Care 190 mg/dL (70-110)
[2019-12-14] VITALS (7 sets, daily range): BP systolic 125–174; BP diastolic 68–86; PULSE 68–89; RESP 17–18; TEMP 36.1–37.3; O2SAT 94–97
[2019-12-14] MEDS: isosorbide mononitrate ER 60 mg Tablet PO (04:59)
[2019-12-14 06:06] LABS: Basophils # 0.1 10^3/uL (0.0-0.1); Basophils % 1.1 %; Eosinophils # 0.3 10^3/uL (0.0-0.8); Hematocrit 34.3 % (37.0-47.0); Hemoglobin 10.8 g/dL (11.5-15.3); Lymphocytes # 1.5 10^3/uL (0.8-4.8); Lymphocytes % 21.9 %; Mean Corpuscular HGB Conc 31.5 g/dL (30.0-36.0); Mean Corpuscular Hemoglobin 30.7 pg (28.0-34.0); Mean Corpuscular Volume 97.4 fL (81-99); Mean Platelet Volume 9.9 fL (7.4-10.4); Monocytes # 0.5 10^3/uL (0.2-0.9); Monocytes % 8.2 %; Neutrophils # 4.2 10^3/uL (1.8-7.7); Neutrophils % 63.3 %; Nucleated Red Blood Cells % 0 %; Platelet Count 439 10^3/cmm (130-400); Red Blood Count 3.52 10^6/uL (4.1-5.3); Red Cell Distribution Width 14.1 % (12.1-15.1); White Blood Count 6.6 10^3/uL (4.0-10.0)
[2019-12-14 06:16] LABS: Alanine Aminotransferase 12 U/L (0-33); Albumin Level 3.6 g/dL (3.5-5.2); Alkaline Phosphatase 227 IU/L (35-105); Anion Gap 15.3 (5-19); Blood Urea Nitrogen 10 mg/dL (8-23); Calcium 9.9 mg/dL (8.5-10.5); Carbon Dioxide 27 mmol/L (22-29); Chloride 102 mmol/L (98-107); Globulin 2.5 g/dL (1.3-4.6); Glucose 111 mg/dL (65-115); Osmolality Calculated 287 mOsm/kg (285-295); Potassium 4.3 mmol/L (3.5-5.1); Sodium 140 mmol/L (136-145); Total Bilirubin 0.7 mg/dL (0.15-1.2); Total Protein 6.1 g/dL (6.6-8.7)
[2019-12-14 06:45] LABS: Aspartate Amino Transferase 34 U/L (0-32)
[2019-12-14 06:56] LABS: Glucose Point of Care 137 mg/dL (70-110)
[2019-12-14] MEDS: cefTRIAXone 1,000 MG in sodium chloride 0.9% (plus) 50 ML 100 MG IV ×2 (08:30→21:01)
[2019-12-14] MEDS: dextrose 5%-sod chloride 0.45% 1,000 ML 75 ML IV (08:32)
[2019-12-14] MEDS: metoprolol tartrate 25 mg Tablet PO ×2 (08:50→16:59)
[2019-12-14] MEDS: acetaminophen 325 mg Tablet 650 MG PO ×2 (08:51→17:00)
[2019-12-14] MEDS: amlodipine 10 mg Tablet PO (08:51)
[2019-12-14] MEDS: gabapentin 300 mg Capsule 600 MG PO ×2 (08:51→16:59)
--- NOTE | 2019-12-14 10:13 | PM.PN ---
Subjective Subjective: Interval history: AM labs noted, VSS, has been incontinent of urine. No noted episodes of hypoglycemia since yesterday. Received 4 units of short acting insulin last night, will d/c D5. Patient seen and examined, son at bedside, working with PT, sitting up in chair, more alert today though still disoriented. Medications: Reviewed: Yes Medication Review Details: Active Medications Generic Name Dose Route Start Last Admin Trade Name Freq PRN Reason Stop Dose Admin Acetaminophen 650 mg 12/12/19 15:00 12/14/19 08:51 Tylenol PO 650 mg Q6H PRN Administration Mild/Mod Pain Or Temp >/= 101 Amlodipine Besylat e 10 mg 12/14/19 09:00 12/14/19 08:51 Norvasc PO 10 mg DAILY LANG Administration Enoxaparin Sodium 40 mg 12/12/19 16:00 12/13/19 15:34 Lovenox SUBCUT 40 mg Q24H LANG Administration Gabapentin 600 mg 12/12/19 18:00 12/14/19 08:51 Neurontin PO 600 mg BID LANG Administration Ceftriaxone Sodium 1,000 mg/ 50 mls @ 100 mls/ hr 12/12/19 16:00 12/14/19 08:30 Sodium Chloride IV 100 mls/hr Q12H LANG Administration Protocol Dextrose/Sodium Ch loride 1,000 mls @ 75 ml s/hr 12/13/19 18:00 12/14/19 08:32 Dextrose 5%-Sod Chloride 0.45% IV 75 mls/hr .[id number] LANG Administration Insulin Aspart 0 unit 12/12/19 18:00 12/14/19 07:13 Novolog SUBCUT Not Given WM&BEDTIME LANG Protocol Insulin Glargine 20 unit 12/13/19 08:00 12/13/19 07:01 Lantus SUBCUT Not Given BREAKFAST LANG Isosorbide Mononit rate 60 mg 12/13/19 06:00 12/14/19 04:59 Imdur PO 60 mg QAM LANG Administration Metoprolol Tartrat e 25 mg 12/13/19 18:00 12/14/19 08:50 Lopressor PO 25 mg BID LANG Administration Ondansetron HCl 4 mg 12/12/19 15:00 Zofran IVP Q8H PRN vomiting, or N/V if npo Oxycodone/Acetamin ophen 1 tab 12/12/19 15:00 Percocet 5-325 M g PO Q4H PRN SEVERE PAIN Senna 17.2 mg 12/12/19 21:00 12/13/19 20:47 Senna Lax PO 17.2 mg BEDTIME LANG Administration atorvastatin [From Lipitor] Allergy (Verified 11/26/19 17:49) ADR-Cramping of the Muscles Penicillins Allergy (Verified 11/26/19 17:49) ALGY-Rash simvastatin [From Zocor] Allergy (Verified 11/26/19 17:49) ADR-Cramping of the Muscles Sulfa (Sulfonamide Antibiotics) Allergy (Verified 11/26/19 17:49) ALGY-Rash Vitals/I&O/Wt Last Vital Signs Temp 98.4 F 12/14/19 08:00 Pulse 89 12/14/19 08:00 Resp 17 12/14/19 08:00 BP 158/78 12/14/19 08:00 Pulse Ox 97 12/14/19 08:00 12/13/19 12/14/19 12/14/19 22:59 06:59 14:59 Intake Total 470 / 1180 30 / 1210 1610 / 1610 Balance 470 / 1180 30 / 1210 1610 / 1610 Weight last 48 hrs Weight 57.652 kg Physical Exam Const: COMMON NORMALS: no apparent distress GENERAL APPEARANCE: cooperative, comfortable and frail appearing ORIENTATION/CONSCIOUSNESS: Yes awake and Yes confused HENMT: COMMON NORMALS: normocephalic, head/scalp atraumatic, hearing grossly normal bilaterally and moist oral mucous membranes HEAD & SCALP: normocephalic and atraumatic Eye: COMMON NORMALS: PERRL, EOMs intact bilaterally and conjunctivae normal CONJUNCTIVA: Yes conjunctivae normal PUPIL: Yes PERRL Neck/C-Spine: COMMON NORMALS: full ROM GENERAL: Yes normal visual inspection and Yes trachea midline Resp: COMMON NORMALS: normal respiratory effort, no retractions, no use of accessory muscles and clear to auscultation bilaterally EFFORT & INSPECTION: Yes able to speak in complete sentences, Yes symmetric chest movement and No tachypneic AUSCULTATION: clear to auscultation bilaterally Cardio: COMMON NORMALS: regular rate, regular rhythm, S1 normal heart sound, S2 normal heart sound and no murmurs RATE: regular rate RHYTHM: regular rhythm HEART SOUNDS: S1 normal and S2 normal GI: COMMON NORMALS: normal to inspection, nondistended, normoactive bowel sounds, soft to palpation and non-tender PALPATION: Yes soft Extremity: COMMON NORMALS: normal to inspection, full ROM and no clubbing, cyanosis or edema; negative for no pedal edema Neuro: COMMON NORMALS: moves all extremities, no focal motor deficits and no sensory deficits noted Psych: COMMON NORMALS: mental status grossly normal, thought process normal, cooperative, affect normal and speech normal SPEECH: Yes normal speech THOUGHT PROCESS: normal thought process Skin: COMMON NORMALS: no rashes or lesions noted, no jaundice, no petechiae and no mottling GENERAL SKIN EXAM: no rashes or lesions noted Data : 12/14/19 05:15 12/14/19 05:15 Micro: Microbiology 12/12/19 12:34 Urine Culture - Preliminary Urine,Clean Catch Yeast species 12/12/19 11:39 Blood Culture - Preliminary Blood NEGATIVE TO DATE 12/12/19 11:35 Blood Culture - Preliminary Blood NEGATIVE TO DATE A&P Assessment and plan (1) Urinary tract infection: -UA indicative of infection -Urine culture growing yeast species -Has been on ceftriaxone, will not add antifungal coverage as no evidence of systemic infection at this time -was previously treated with Ciprofloxacin and Flagyl for presumed diverticulitis Status: Acute Qualifiers: Hematuria presence: without hematuria Urinary tract infection type: acute cystitis Qualified Code(s): N30.00 - Acute cystitis without hematuria Code(s): N39.0 - Urinary tract infection, site not specified (2) Altered mental status: -Altered mental status likely secondary to UTI and element of hypoglycemia given recent introduction of insulin secondary to diabetes -Has had some intermittent low normal blood sugar, continue to hold scheduled insulin; has had no further episodes of hypoglycemia so will d/c D5 IVF, continue hypoglycemic precautions -Continue Accu-Cheks -Reorient as needed, fall precautions Status: Acute Qualifiers: Altered mental status type: somnolence Qualified Code(s): R40.0 - Somnolence Code(s): R41.82 - Altered mental status, unspecified (3) History of hip surgery: -Patient had recent right ORIF secondary to comminuted right intertrochanteric and subtrochanteric hip fracture done on 11/28/2019 -Repeat imaging shows IM nail in good position -Pain control as needed, fall precautions Status: Acute Code(s): Z98.890 - Other specified postprocedural states (4) Hypertension: -Noted trend towards hypertension so increased dose of amlodipine and metoprolol -Continue to monitor vital signs Status: Acute Qualifiers: Hypertension type: essential hypertension Qualified Code(s): I10 - Essential (primary) hypertension Code(s): I10 - Essential (primary) hypertension Additional A&P Information -Advanced age -IDDM type II; recently started on insulin -Dementia -Hyperlipidemia -hx of CAD -diabetic diet as tolerated -DVT ppx with Lovenox -venous duplex negative for DVT -renal US: benign L renal cyst -Dispo: return to [facility] -Code status: FULL code Attestations Medical Necessity Statement*: Patient requires hospitalization for continued treatment of UTI pending improvement in mental status. Time Spent in Patient Care: 16 - 35 minutes (>than 50% of time spent in counselling and/or direct pt care on unit). Coding Level of Care Code Acute Pole Inspector for g Fwd Exam Comprehensive Diagnoses Urinary tract infection N30.00 Hematuria presence: without hematuria Urinary tract infection type: acute cystitis Altered mental status R40.0 Altered mental status type: somnolence History of hip surgery Z98.890 Hypertension I10 Hypertension type: essential hypertension
[2019-12-14 11:24] LABS: Glucose Point of Care 228 mg/dL (70-110)
[2019-12-14] MEDS: enoxaparin 40 mg/0.4 mL Syringe SUBCUT (16:59)
[2019-12-14 17:02] LABS: Glucose Point of Care 167 mg/dL (70-110)
[2019-12-14 20:55] LABS: Glucose Point of Care 249 mg/dL (70-110)
[2019-12-14] MEDS: sennosides 8.6 mg Tablet 17.2 MG PO (20:59)
[2019-12-15] VITALS (7 sets, daily range): BP systolic 136–181; BP diastolic 68–86; PULSE 74–100; RESP 18; TEMP 36.3–37.7; O2SAT 97–98
[2019-12-15] MEDS: acetaminophen 325 mg Tablet 650 MG PO ×2 (04:17→14:29)
[2019-12-15] MEDS: isosorbide mononitrate ER 60 mg Tablet PO (05:27)
[2019-12-15 06:46] LABS: Glucose Point of Care 174 mg/dL (70-110)
[2019-12-15 06:52] LABS: Basophils # 0.1 10^3/uL (0.0-0.1); Basophils % 0.9 %; Eosinophils # 0.2 10^3/uL (0.0-0.8); Eosinophils % 2.8 %; Hematocrit 34.4 % (37.0-47.0); Hemoglobin 10.7 g/dL (11.5-15.3); Lymphocytes # 1.4 10^3/uL (0.8-4.8); Lymphocytes % 15.8 %; Mean Corpuscular HGB Conc 31.1 g/dL (30.0-36.0); Mean Corpuscular Hemoglobin 30.2 pg (28.0-34.0); Mean Corpuscular Volume 97.2 fL (81-99); Mean Platelet Volume 9.8 fL (7.4-10.4); Monocytes # 0.6 10^3/uL (0.2-0.9); Monocytes % 7.1 %; Neutrophils # 6.3 10^3/uL (1.8-7.7); Neutrophils % 73.1 %; Nucleated Red Blood Cells % 0 %; Platelet Count 613 10^3/cmm (130-400); Red Blood Count 3.54 10^6/uL (4.1-5.3); Red Cell Distribution Width 13.9 % (12.1-15.1); White Blood Count 8.6 10^3/uL (4.0-10.0)
[2019-12-15 07:08] LABS: Alanine Aminotransferase 11 U/L (0-33); Albumin Level 3.2 g/dL (3.5-5.2); Alkaline Phosphatase 249 IU/L (35-105); Anion Gap 11.9 (5-19); Aspartate Amino Transferase 23 U/L (0-32); Blood Urea Nitrogen 13 mg/dL (8-23); Calcium 9.8 mg/dL (8.5-10.5); Carbon Dioxide 31 mmol/L (22-29); Chloride 101 mmol/L (98-107); Globulin 3.7 g/dL (1.3-4.6); Glucose 205 mg/dL (65-115); Osmolality Calculated 292 mOsm/kg (285-295); Potassium 3.9 mmol/L (3.5-5.1); Sodium 140 mmol/L (136-145); Total Bilirubin 0.7 mg/dL (0.15-1.2); Total Protein 6.9 g/dL (6.6-8.7)
[2019-12-15] MEDS: amlodipine 10 mg Tablet PO (09:24)
[2019-12-15] MEDS: gabapentin 300 mg Capsule 600 MG PO (09:24)
[2019-12-15] MEDS: metoprolol tartrate 25 mg Tablet PO ×2 (09:24→10:34)
--- NOTE | 2019-12-15 10:22 | P.DS_ITS ---
Discharge Providers Date of Admission: 12/13/19 20:48 Date of Discharge: December 15, 2019 Attending Provider at Admission: Rashid Wick MD Attending Provider at Discharge: Marline Odom MD Primary Care Provider: RASHMI Grove Diagnoses at Discharge Discharge Diagnosis (1) Urinary tract infection: Status: Acute Qualifiers: Urinary tract infection type: acute cystitis Hematuria presence: without hematuria Qualified Code(s): N30.00 - Acute cystitis without hematuria (2) Altered mental status: Status: Acute Qualifiers: Altered mental status type: somnolence Qualified Code(s): R40.0 - Somnolence (3) History of hip surgery: Status: Acute (4) Hypertension: Status: Acute Qualifiers: Hypertension type: essential hypertension Qualified Code(s): I10 - Essential (primary) hypertension Reason for Visit Reason for Visit: Reason For Visit: AMS Hospital Course Hospital Course: Patient was admitted to the medical surgical floor and started on empiric antibiotic treatment secondary to concern for UTI. Urinalysis done here on admission was negative but given her advanced age and change in mental status, antibiotic treatment was continued. With hydration and antibiotic treatment her mental status improved though it is worth noting that the patient has underlying dementia and tends to wax and wane in terms of her baseline mental status. There was some concern for possible hypoglycemia so she received dextrose containing IV fluid. Once blood sugar was consistent and no further hypoglycemic episodes were noted IV fluid was discontinued and she has been able to maintain her blood sugar appropriately. Family has been present at bedside throughout her hospital stay. She had a noted trend towards elevated blood pressure so oral antihypertensives were adjusted appropriately. She has been on ceftriaxone during her hospital stay with no noted adverse reaction though she does have a noted allergy to penicillin. As such she will be continued on cephalosporins for several more days to complete her treatment course. She had recently been started on scheduled and sliding scale insulin; due to high risk for hypoglycemia I have recommended against scheduled insulin and cautious use of sliding scale with continued hypoglycemic precautions. In the event that she develops significant and consistent hyperglycemia, reconsider use of scheduled insulin though given patient's advanced age this may not be first choice treatment. Blood pressure has improved, she has not required supplemental oxygen, has been afebrile with no noted leukocytosis. She will be discharged home with family per their preference with home health services, has 24/7 supervision available and excellent family support. Due to her overall deconditioning, underlying dementia and overall debility, she will require a hospital bed for appropriate positioning as she is at risk for aspiration and falls as well as a wheelchair. Discharge Summary: -Patient to follow-up with her primary care provider within 1 week Physical Exam Const: COMMON NORMALS: no apparent distress GENERAL APPEARANCE: cooperative, comfortable and frail appearing ORIENTATION/CONSCIOUSNESS: Yes awake and Yes confused HENMT: COMMON NORMALS: normocephalic, head/scalp atraumatic, hearing grossly normal bilaterally and moist oral mucous membranes HEAD & SCALP: normocephalic and atraumatic Eye: COMMON NORMALS: PERRL, EOMs intact bilaterally and conjunctivae normal CONJUNCTIVA: Yes conjunctivae normal PUPIL: Yes PERRL Neck/C-Spine: COMMON NORMALS: full ROM GENERAL: Yes normal visual inspec tion and Yes trachea midline Resp: COMMON NORMALS: normal respiratory effort, no retractions, no use of accessory muscles and clear to auscultation bilaterally EFFORT & INSPECTION: Yes able to speak in complete sentences, Yes symmetric chest movement and No tachypneic AUSCULTATION: clear to auscultation bilaterally Cardio: COMMON NORMALS: regular rate, regular rhythm, S1 normal heart sound, S2 normal heart sound and no murmurs RATE: regular rate RHYTHM: regular rhythm HEART SOUNDS: S1 normal and S2 normal GI: COMMON NORMALS: normal to inspection, nondistended, normoactive bowel sounds, soft to palpation and non-tender PALPATION: Yes soft Extremity: COMMON NORMALS: normal to inspection, full ROM and no clubbing, cyanosis or edema; negative for no pedal edema Neuro: COMMON NORMALS: moves all extremities, no focal motor deficits and no sensory deficits noted Psych: COMMON NORMALS: mental status grossly normal, thought process normal, cooperative, affect normal and speech normal SPEECH: Yes normal speech THOUGHT PROCESS: normal thought process Skin: COMMON NORMALS: no rashes or lesions noted, no jaundice, no petechiae and no mottling GENERAL SKIN EXAM: no rashes or lesions noted Discharge Data Data Completed and Pending: Completed Studies During Hospitalization Category Date Time Status CT head wo con* 7 0450 Stat Cat Scan 12/12/19 12:05 Completed XR chest 1V [place] ble [id number] Stat Exams 12/12/19 11:28 Completed XR hip RT 2-3V wo /w pel* [id number] Stat Exams 12/12/19 11:29 Completed XR knee RT 1-2V 7 3560 Routine Exams 12/12/19 15:00 [place] [id number] Routin e Ultrasound 12/12/19 14:08 Completed US renal BI* [id number] 0 Routine Ultrasound 12/13/19 06:00 Completed Pending at discharge Category Date Time Status Blood Culture Sta t Lab 12/12/19 11:39 Results Urine Culture Sta t Lab 12/12/19 12:34 Results Labs from last 24 hours 12/15/19 12/15/19 12/15/19 06:41 06:19 06:19 WBC 8.6 RBC 3.54 L Hgb 10.7 L Hct 34.4 L MCV 97.2 MCH 30.2 MCHC 31.1 RDW 13.9 Plt Count 613 H MPV 9.8 Neut % (Auto) 73.1 Lymph % (Auto) 15.8 [place] % (Auto) 7.1 Eos % (Auto) 2.8 Baso % (Auto) 0.9 Neut # (Auto) 6.3 Lymph # (Auto) 1.4 [place] # (Auto) 0.6 Eos # (Auto) 0.2 Baso # (Auto) 0.1 Nucleated RBC % (a uto) 0 Nucleated RBCs # 0.0 Sodium 140 Potassium 3.9 Chloride 101 Carbon Dioxide 31 H Anion Gap 11.9 BUN 13 Creatinine 0.7 Glucose 205 H POC Glucose 174 Calculated Osmolal ity 292 Calcium 9.8 Total Bilirubin 0.7 AST 23 ALT 11 Alkaline Phosphata se 249 H Total Protein 6.9 Albumin 3.2 L Globulin 3.7 12/14/19 12/14/19 12/14/19 20:49 16:56 11:18 WBC RBC Hgb Hct MCV MCH MCHC RDW Plt Count MPV Neut % (Auto) Lymph % (Auto) [place] % (Auto) Eos % (Auto) Baso % (Auto) Neut # (Auto) Lymph # (Auto) [place] # (Auto) Eos # (Auto) Baso # (Auto) Nucleated RBC % (a uto) Nucleated RBCs # Sodium Potassium Chloride Carbon Dioxide Anion Gap BUN Creatinine Glucose POC Glucose 249 167 228 Calculated Osmolal ity Calcium Total Bilirubin AST ALT Alkaline Phosphata se Total Protein Albumin Globulin Vitals: Last Vital Signs Temp 97.7 F 03/18/20 08:00 Pulse 100 12/15/19 08:00 Resp 18 12/15/19 08:00 BP 136/84 12/15/19 08:00 Pulse Ox 97 12/15/19 08:00 Discharge Plan Discharge Patient Disposition: Home Health Service Condition: Stable Prescriptions: New metoprolol tartrate 25 mg Tablet 50 mg PO BID 30 Days Qty: 120 RF: 0 cefuroxime axetil 250 mg tablet 250 mg PO BID 7 Days Qty: 14 RF: 0 oxycodone 5 mg Tablet 5 mg PO Q4H PRN (Reason: Moderate To Severe Pain) Qty: 30 RF: 0 Continued citalopram 10 mg tablet 10 mg PO DAILY 30 Days Qty: 30 RF: 0 donepezil 10 mg tablet 10 mg PO BEDTIME 30 Days Qty: 30 RF: 0 acetaminophen 500 mg Tablet 1,000 mg PO Q8H Qty: 30 RF: 0 isosorbide mononitrate 60 mg tablet extended release 24 hr 60 mg PO QAM 30 Days Qty: 30 RF: 0 aspirin 325 mg Tablet,Delayed Release (Dr/Ec) 325 mg PO DAILY 30 Days Qty: 30 RF: 0 ferrous sulfate 325 mg (65 mg iron) tablet 325 mg PO BID 30 Days Qty: 60 RF: 0 gabapentin 300 mg capsule 600 mg PO BID 30 Days Qty: 120 RF: 0 ketoconazole 2 % cream 1 applic TOPICAL BID Qty: 15 RF: 0 Changed amlodipine 5 mg tablet 10 mg PO DAILY 30 Days Qty: 60 RF: 0 trazodone 50 mg tablet 25 mg PO BEDTIME PRN (Reason: Insomnia) 30 Days Qty: 15 RF: 0 Discontinued naproxen 500 mg tablet 500 mg PO BID PRN (Reason: Pain) RF: 0 ciprofloxacin HCl [Cipro] 500 mg tablet 500 mg PO BID Qty: 14 RF: 0 Flagyl 250 mg Tablet 250 mg PO QID RF: 0 Novolin R Regular U-100 Insuln 100 unit/mL Solution See Rx Instructions .ROUTE .COMPLEX RF: 0 Lantus Solostar U-100 Insulin 100 unit/mL (3 mL) Insulin Pen 20 unit SUBCUT BID RF: 0 metoprolol tartrate 25 mg tablet 12.5 mg PO BID Qty: 0 RF: 0 Discharge Orders: Discharge Order (Routine); Ordered 12/15/19 Ordered By: Marline Odom Other Ambulatory Orders: DME: Hospital Bed (Order) Location: None Selected Ordered By: Marline Odom DME: Wheelchair (Order) Location: None Selected Ordered By: Marline Odom Referrals: Sue Monsivais, GEOGRAPHIC INFORMATION SCIENTIST [Primary Care Provider] - 7-10 days (Post hospital discharge follow up. Treated for UTI, urine cx grew yeast species. Discharged on Cefuroxime x 7 days. ) Discharge Diet: Diabetic Discharge Activity: Increase activity as tolerated Activity Restrictions/Additional Instructions: -Patient is a high fall risk so continue fall precautions -Patient has underlying dementia and may need to be reoriented appropriately. -Patient is at risk of hypoglycemia so continue to monitor blood sugar and avoid scheduled insulin unless significantly and consistently hyperglycemic. Discharge Attestations Time Spent in Discharge Care*: greater than 30 min Specific Discharge Activities: Specific discharge activities: educating patient, educating and/or supporting family/caregiver, discussing with returned case inspector/social workers/dc planners, documenting/other paperwork and evaluating patient/reviewing data Status at Discharge: Cognitive status at discharge: mildly impaired cognition (has underlying dementia) , Behavioral status at discharge: cooperative , Functional status at discharge: other assisted ambulation (high fall risk) Overall status at discharge: patient is progressing back to baseline Quality Metrics Clinical Quality Measures During this hospital stay, did patient experience: None Coding Level of Care Code Acute E Tailer for Zahra Helms Diagnoses Urinary tract infection N30.00 Urinary tract infection type: acute cystitis Hematuria presence: without hematuria Altered mental status R40.0 Altered mental status type: somnolence History of hip surgery Z98.890 Hypertension I10 Hypertension type: essential hypertension
[2019-12-15 12:05] LABS: Glucose Point of Care 330 mg/dL (70-110)
== END 2019-12-15 14:45 | disposition home health service (06) | DRG 690 ==
LOC: ER 12:58 → MEDSURG 13:45
PROVIDERS: Admitting Provider Internal Medicine; Emergency Provider Emergency Medicine; PCP Nurse Practitioner Family; Visit Provider Family Medicine
DX: N30.00 Acute cystitis without hematuria (principal); I10 Essential (primary) hypertension; I25.10 Atherosclerotic heart disease of native coronary artery without angina pectoris; E11.9 Type 2 diabetes mellitus without complications; D47.3 Essential (hemorrhagic) thrombocythemia; D72.829 Elevated white blood cell count, unspecified; E78.5 Hyperlipidemia, unspecified; F03.90 Unspecified dementia, unspecified severity, without behavioral disturbance, psychotic disturbance, mood disturbance, and anxiety; Z79.82 Long term (current) use of aspirin; Z79.890 Hormone replacement therapy
CPT/HCPCS: 12345; 36415; 36416; 70450; 71045; 73502; 73560; 76770; 80053; 81001; 82962; 83605; 83735; 85025; 87040; 87086; 87107; 93005; 93971; 96372; 96375; 97110; 97116; 97161; 97530; 99282; G0378; J0696; J1650; J1815; J2270; J2405; J7799

== ENCOUNTER → 2019-12-20 09:12 | Outpatient (BNVA) | payer MEDICARE, BC, SELFPAY | PROVIDERS: PCP Nurse Practitioner Family; Visit Provider Specialist | DX: Z48.89 Encounter for other specified surgical aftercare (principal); S72.21XA Displaced subtrochanteric fracture of right femur, initial encounter for closed fracture; S72.144A Nondisplaced intertrochanteric fracture of right femur, initial encounter for closed fracture; X58.XXXA Exposure to other specified factors, initial encounter | CPT/HCPCS: 73502 ==

== ENCOUNTER → 2020-05-01 12:45 | Outpatient (BNVA) | payer MEDICARE, BC, SELFPAY | PROVIDERS: PCP Nurse Practitioner Family; Visit Provider Nurse Practitioner Family | DX: E11.65 Type 2 diabetes mellitus with hyperglycemia (principal); Z79.4 Long term (current) use of insulin | CPT/HCPCS: 80053; 80061; 83036; 85025 ==

== ENCOUNTER → 2020-09-18 11:47 | Outpatient (BNVA) | payer MEDICARE, BC, SELFPAY | PROVIDERS: PCP Nurse Practitioner Family; Visit Provider Nurse Practitioner Family | DX: R60.9 Edema, unspecified (principal) | CPT/HCPCS: 80048; 83880 ==

== ENCOUNTER → 2020-12-08 12:17 | Outpatient (BNVA) | payer MEDICARE, BC, SELFPAY | PROVIDERS: PCP Nurse Practitioner Family; Visit Provider Nurse Practitioner Family | DX: E11.65 Type 2 diabetes mellitus with hyperglycemia (principal); Z79.4 Long term (current) use of insulin; F03.90 Unspecified dementia, unspecified severity, without behavioral disturbance, psychotic disturbance, mood disturbance, and anxiety; I10 Essential (primary) hypertension | CPT/HCPCS: 80053; 80061; 82306; 82607; 83036; 84443; 85025 ==

== ENCOUNTER → 2020-12-19 11:28 | Outpatient (BNVA) | payer MEDICARE, BC, SELFPAY | PROVIDERS: PCP Nurse Practitioner Family; Visit Provider Nurse Practitioner Family | DX: R41.0 Disorientation, unspecified (principal) | CPT/HCPCS: 81003; 87077; 87086; 87184 ==

== ENCOUNTER 2021-02-06 21:40 | Inpatient (IN) | payer MEDICARE, BC, SELFPAY ==
--- NOTE | 2021-02-06 21:44 | ECG_ITS ---
[facility] Test Date: 2021-02-06 Pat Name: Milagro Salcedo Department: Room: Gender: Female Rfid Manager: : 1935 Requested By: Glendy Yeager Order Number: [id number] Juan MD: Katerina Garcia M.D. Measurements Intervals Anselmo Rate: 60 P: 84 HI: 210 QRS: -14 QRSD: 112 T: -60 QT: 460 QTc: 460 Interpretive Statements SINUS RHYTHM WITH FIRST DEGREE AV BLOCK LOW QRS VOLTAGE IN PRECORDIAL LEADS POSSIBLE ANTERIOR MYOCARDIAL INFARCTION,OF INDETERMINATE AGE INFERIOR MYOCARDIAL INFARCTION, PROBABLY RECENT ST ELEVATION, CONSIDER SEPTAL INJURY ACUTE GA Compared to ECG 12/12/2019 16:05:54 First degree AV block now present Low QRS voltage now present ST (T wave) deviation now present Left-axis deviation no longer present Myocardial infarct finding still present Electronically Signed On 02-07-2021 18:25:13 CDT by Katerina Garcia M.D. [id number]
[2021-02-06 21:45] VITALS: BP 155/81; PULSE 67; RESP 18; O2SAT 93; BMI 25.6
--- NOTE | 2021-02-06 21:45 | ED_ITS ---
HPI - Chest Pain General: Chief Complaint: Chest Pain Stated Complaint: CHEST PAIN AND BODY PAIN Time Seen by Provider: 02/06/21 21:41 Source: patient and EMS Mode of arrival: EMS Limitations: no limitations History of Present Illness: HPI narrative: 85-year-old female who called EMS today she is having chest pain. States the pain is sharp in nature and much worse with palpation. States it is also worse when going over bumps. She does have a history of dementia as well. She denies any shortness of breath. She has no diaphoresis. MD complaint: chest pain Associated symptoms: Deny abdominal pain, dyspnea, fever(s), nausea or vomiting Review of Systems Const: Denies: fever(s), chills, body aches or change in appetite Eyes: Denies: blurry vision or eye discomfort ENMT: Denies: throat pain or dental pain Card: Reports: chest pain Resp: Denies: dyspnea GI: Denies: abdominal pain, nausea, vomiting or diarrhea : Denies: dysuria Musc: Denies: neck pain or back pain Skin/Breast: Denies: rash Neuro: Denies: headache(s) Psych: Denies: depression Freddy/Lymph: Denies: easy bruising All/Imm: Denies: urticaria PFSH ED PFSH: Medical History (Updated 02/06/21 @ 22:41 by Glendy Yeager MD) CAD (coronary artery disease) Dementia Diabetes mellitus Hyperlipemia Hypertension Muscle wasting and atrophy, not elsewhere classified, multiple sites Osteoarthritis Surgical History History of colon resection History of coronary artery stent placement Hx of appendectomy Hx of hysterectomy Family History Family/Other Hypertension Heart disease Dementia CAD (coronary artery disease) Hyperlipidemia Social History Smoking and tobacco status: never smoked Second hand smoke exposure: No Alcohol intake: never Lives independently: Yes Household members: spouse and other Details: children rotate staying at night Housing: House Marital status: Current occupational status: retired History of recent travel: No Current gender identity: Female Physical Exam Const: COMMON NORMALS: no acute distress, patient oriented x3 and healthy appearing HENMT: COMMON NORMALS: normocephalic and atraumatic HEAD & SCALP: normocephalic and atraumatic Eye: COMMON NORMALS: Equal, round and reactive pupils present and EOMs intact bilaterally PUPIL: Yes Equal, round and reactive pupils present Neck/C-Spine: COMMON NORMALS: full ROM and supple Chest: COMMONS NORMALS: normal inspection of the chest OTHER: point tender left chest Resp: COMMON NORMALS: normal respiratory effort, No retractions, No use of accessory muscles and clear to auscultation bilaterally AUSCULTATION: clear to auscultation bilaterally Cardio: COMMON NORMALS: regular rate, regular rhythm and No murmurs present (Cardio) RATE: regular rate RHYTHM: regular rhythm GI: COMMON NORMALS: Normal to inspection, nondistended, normoactive bowel sounds present, Soft to palpation, non-tender and no masses PALPATION: Yes Soft to palpation Extremity: COMMON NORMALS: normal to inspection and full ROM Neuro: COMMON NORMALS: patient oriented x3, moves all extremities and no focal motor deficits Psych: COMMON NORMALS: mental status grossly normal, Normal thought process present and cooperative THOUGHT PROCESS: Normal thought process present Skin: COMMON NORMALS: no rashes or lesions noted and no wounds GENERAL SKIN EXAM: no rashes or lesions noted Course Vital Signs: Vital signs: Vital Signs Temperature 98.5 F 02/06/21 22:00 Pulse Rate 67 02/06/21 21:45 Respiratory Rate 19 H 02/06/21 22:26 Blood Pressure 155/81 02/06/21 21:45 Pulse Oximetry 97 02/06/21 22:26 MDM - Chest Pain 2 MDM Narrative: Medical decision making narrative: Patient presents with ST elevation UT. I spoke to outpatient phlebotomist Dr. Myers and he is going to take patient to the [employer] [facility] at this time. Patient given Plavix and heparin in the ER. Patient was given aspirin at home. Lab Data: Labs: Lab Results 02/06/21 02/06/21 02/06/21 Range/Units 21:58 21:58 21:58 WBC 8.8 (4.0-10.0) 10^3/ uL RBC 4.35 (4.1-5.3) 10^6/u L Hgb 13.1 (11.5-15.3) g/dL Hct 39.7 (37.0-47.0) % MCV 91.3 (81-99) fL MCH 30.1 (28.0-34.0) pg MCHC 33.0 (30.0-36.0) g/dL RDW 12.6 (12.1-15.1) % Plt Count 350 (130-400) 10^3/c mm MPV 11.0 H (7.4-10.4) fL Neut % (Auto) 64.9 % Lymph % (Auto) 23.1 % [place] % (Auto) 7.4 % Eos % (Auto) 3.3 % Baso % (Auto) 1.0 % Neut # (Auto) 5.70 (1.8-7.7) 10^3/u L Lymph # (Auto) 2.0 (0.8-4.8) 10^3/u L [place] # (Auto) 0.7 (0.2-0.9) 10^3/u L Eos # (Auto) 0.3 (0.0-0.8) 10^3/u L Baso # (Auto) 0.1 (0.0-0.1) 10^3/u L Nucleated RBC % (a uto) 0 % Nucleated RBCs # 0.0 /100WBC Sodium 138 (136-145) mmol/L Potassium 2.7 L* (3.5-5.1) mmol/L Chloride 96 L (98-107) mmol/L Carbon Dioxide 30 H (22-29) mmol/L Anion Gap 14.7 (5-19) BUN 6 L (8-23) mg/dL Creatinine 0.8 (0.5-0.9) mg/dL GFR Calculation Not Reportable Glucose 156 H (65-115) mg/dL Calculated Osmolal ity 287 (285-295) mOsm/k g Calcium 8.7 (8.5-10.5) mg/dL Total Bilirubin 0.8 (0.15-1.2) mg/dL AST 27 (0-32) U/L ALT 10 (0-33) U/L Alkaline Phosphata se 102 (35-105) IU/L Troponin T Baselin e 382 H* (0-10) ng/L Total Protein 6.1 L (6.6-8.7) g/dL Albumin 3.5 (3.5-5.2) g/dL Globulin 2.6 (1.3-4.6) g/dL EKG Data^: EKG 1: Attestation: I personally reviewed and interpreted this EKG as follows: EKG interpretation date: 02/06/21 EKG interpretation time: 22:10 Interpretation: slight elevation in iii, avg, v1 and v2 change from previous ekg concerning for stemi EKG 2: Attestation: I personally reviewed and interpreted this EKG as follows: EKG interpretation date: 02/06/21 EKG interpretation time: 22:30 Interpretation: nsr hr [address] elevation noted Critical Care Time Critical Care Time: Critical Care Time: Yes Total Critical Care Time: 36 Attestation: This case had a high probability of a clinically significant, sudden, or life threatening deterioration of this patient's condition which required my full and direct attention, intervention and personal management. Discharge Plan Discharge Patient Disposition: Admitted As Inpatient Clinical Impression: ST elevation myocardial infarction (STEMI) Condition: Stable Coding Level of Care Code ED President/Gm Production & Live Experiences for Chg Fwd Exam Comprehensive
[2021-02-06 22:00] VITALS: TEMP 36.9
[2021-02-06 22:02] LABS: Basophils # 0.1 10^3/uL (0.0-0.1); Eosinophils # 0.3 10^3/uL (0.0-0.8); Eosinophils % 3.3 %; Hematocrit 39.7 % (37.0-47.0); Hemoglobin 13.1 g/dL (11.5-15.3); Lymphocytes % 23.1 %; Mean Corpuscular Hemoglobin 30.1 pg (28.0-34.0); Mean Corpuscular Volume 91.3 fL (81-99); Monocytes # 0.7 10^3/uL (0.2-0.9); Monocytes % 7.4 %; Neutrophils % 64.9 %; Nucleated Red Blood Cells % 0 %; Platelet Count 350 10^3/cmm (130-400); Red Blood Count 4.35 10^6/uL (4.1-5.3); Red Cell Distribution Width 12.6 % (12.1-15.1); White Blood Count 8.8 10^3/uL (4.0-10.0)
[2021-02-06 22:19] LABS: Alanine Aminotransferase 10 U/L (0-33); Albumin Level 3.5 g/dL (3.5-5.2); Alkaline Phosphatase 102 IU/L (35-105); Anion Gap 14.7 (5-19); Aspartate Amino Transferase 27 U/L (0-32); Blood Urea Nitrogen 6 mg/dL (8-23); Calcium 8.7 mg/dL (8.5-10.5); Carbon Dioxide 30 mmol/L (22-29); Chloride 96 mmol/L (98-107); Creatinine Clr Calc Pharmacy 45.0141; Globulin 2.6 g/dL (1.3-4.6); Glucose 156 mg/dL (65-115); Osmolality Calculated 287 mOsm/kg (285-295); Sodium 138 mmol/L (136-145); Total Bilirubin 0.8 mg/dL (0.15-1.2); Total Protein 6.1 g/dL (6.6-8.7)
[2021-02-06 22:26] VITALS: RESP 19; O2SAT 97
[2021-02-06] MEDS: morphine 4 mg/mL SDV 1 mL IVP (22:26)
[2021-02-06 22:28] LABS: Potassium 2.7 mmol/L (3.5-5.1)
[2021-02-06] MEDS: ondansetron 2 mg/ML SDV 2 mL 4 MG IVP (22:28)
[2021-02-06 22:29] LABS: Troponin(5th) Baseline 382 ng/L (0-10)
[2021-02-06] MEDS: heparin 5,000 unit/mL INJ 1 mL 4000 UNIT IVP (22:30)
--- NOTE | 2021-02-06 22:35 | XACV_ITS ---
Ht: 157 cm Wt: 64 kg BSA: 1.68 m2 Gender: Female : 1935 Any Known Allergies: Other Exam Priority: Routine Procedure(s): Procedure Description: Diagnostic procedure Procedure Description: PCI procedure Procedure Description: Drug Eluting Coronary Stent Procedure Description: PTCA Procedure Description: Miscellaneous Procedure Description: ACT Procedure Description: Coronary Angiography Diagnostic Cath Status: Emergency Diagnostic Findings * Left Main has minor luminal irregularities. * Circumflex has proximal 40-50% moderate stenosis. * LAD arises from the left main artery. * It has proximal to mid vessel stents. * In the distal part of the stent, mid LAD is totally occluded. This is the culprit vessel for ST elevation SD. * M * id Left Anterior Descending: total occlusion, CELESTE: 0 flow. * RCA arises from the right coronary cusp. * mid Right Coronary Artery: subtotal occlusion of the vessel. There are proximal to mid vessel stents with severe mid RCA in-stent restenosis. CELESTE II flow. Distal RCA has moderate diffuse disease.. * Coronary angiography shows right dominance. PCI Status: Emergency PCI Indication: STEMI - Stable (<= 12 hrs Sx) Interventional Findings * Procedure detail: We obtained access in right femoral artery. We engaged left main artery with a XB 3.5 guide catheter was used to engage left main artery. We used a 0.014 run-through guidewire to cross the proximal to mid LAD. We used a 2.5 x 12 mm semicompliant balloon to predilate the thrombosed stent. This was followed by dilation with a 3.0 x 12 mm NC balloon. At this time angiogram showed excellent stent expansion, CELESTE-3 flow and no residual stenosis. We decided not to put a second layer of stents. Then we turned our attention to the RCA. We engaged RCA with a 6 Prydeinig JR4 guide catheter. A 0.014 run-through guidewire was used to cross the severe stenosis and was placed in distal RCA. This was followed by predilation with a 3.0 x 12 mm NC balloon. We then placed a 3.0 x 15 mm resolute [place] drug-eluting stent in mid RCA. At this time performed final angiogram that showed excellent stent expansion, no residual stenosis and CELESTE-3 flow. 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 * Mid Left Anterior Descendin% stenosis treated with a AB TREK 2.50X12 RX BALLOON, and MDT NC EUPHORA RX 3.42A04IL BALLOON. 0% residual stenosis, CELESTE: 3 flow. * Mid Right Coronary Artery: 99% stenosis treated with a MDT NC EUPHORA RX 3.20B37ZO BALLOON, and MDT R AMBER 3.0X15 MARYBETH. 0% residual stenosis, CELESTE: 3 flow. Conclusions 1. Thrombotic total occlusion of the proximal to mid LAD stent (culprit vessel for anterior STEMI), treated with balloon angioplasty. 2. Mid RCA has severe 99% instent restenosis treated with PCI with MARYBETH x 1. Recommendations * Transfer to [facility]. * Aspirin and Plavix for atleast 1 year. * Statin therapy. * Beta francisco. * Order echocardiogram. Interventional RX Recommendation: PCI w/o planned CABG Diagnostic RX Recommendation: PCI w/o planned CABG Anticoagulation: Heparin Pressures Phase:Rest AO : 105 / 52 ( 75 ) @ 6:54:19 PM 66 / 45 ( 35 ) @ 6:54:19 PM 105 / 57 ( 70 ) @ 6:54:19 PM 96 / -26 ( 16 ) @ 6:54:19 PM 106 / 68 ( 84 ) @ 6:54:19 PM 92 / 58 ( 74 ) @ 6:54:19 PM Clinical Evaluation EBL: 5mL-10mL Procedural Details Pre-Procedure Time Out. Identified patient by full name and date of as verbalized by the patient/guarantor. Does the consent match the physician's order: N/A Emergent. Accurate & Complete Informed Consent: N/A Emergent. Inpatient/Outpatient History & Physical on Chart: N/A Emergent. If H&P is completed, is and addenduem needed: N/A Emergent; If yes, is the addendum complete: N/A Emergent. Visualize and Verify Site with Patient/Guarantor: N/A. Relevant Radiology Images available: N/A Emergent. Pre-op teaching completed and patient verbalized understanding. The risks, benefits, and alternatives of sedation and/or procedure were discussed by physician. The patient agrees to continue. Procedure started. [facility] Clinical Fraility Score: 5: Mildly Frail. Hot Dip Galvanizer Indications: ACS <= 24 hours. Chest Pain Symptom Assessment: Typical Angina Symptoms. Cardiovascular Instability: No. Physician arrived. Equipment: 6F - Femoral. Cardiac Cath Pack. ACIST Manifold Kit Model BT 2000. Heparinized Saline (2 units/mL), 1000 mL bag. Kit, Micropuncture. Physician scrubbed in. Immediate Pre-Procedure Time Out. Correct Patient: Yes; Correct Procedure: Yes; Correct Site: Yes; Correct Patient Position: Yes; Correct Supplies: Yes; Dried Flammable Prep: Yes; Blood Products Available: N/A;. Correct patient, site and procedure confirmed by cath team. PERRLA. 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 Lungs clear x 5 lobes. IV Site on Arrival: 20 gauge in the left anticubital. IV Fluids: 0.9% NaCl at KVO. 0 mL infused prior to odd job laborer. Oxygen started at 2liters/min via nasal canula. bilateral groins was prepped with chloroprep then draped in the usual sterile fashion. Baseline sample Acquired. HR: 74 BPM. Lidocaine 1% infiltrated to the right groin. Arterial access obtained with micropuncture set. A 5 israeli JR4 catheter in over wire. Multiple views taken of right coronary artery. Catheter removed over the standard wire. Inventory is CRD 6 FR XB 3.5 GUIDE. 6 israeli XB 3.5 guide catheter was inserted over the wire. Runthrough guidewire was advanced through the guide catheter to lesion in the mid LAD. Inflation number : 1 A AB TREK 2.50X12 RX BALLOON was prepped and advanced across the Mid LAD , then inflated to 8 SAMANTHA for 0:10 seconds. Inflation number: 2 The AB TREK 2.50X12 RX BALLOON was reinflated across the Mid LAD, to 12 SAMANTHA for 0:25 seconds. Inflation number: 3 The AB TREK 2.50X12 RX BALLOON was reinflated across the Mid LAD, to 14 SAMANTHA for 0:14 seconds. Inflation number: 4 The AB TREK 2.50X12 RX BALLOON was reinflated across the Mid LAD, to 14 SAMANTHA for 0:20 seconds. Balloon out. Results checked. Inflation number : 5 A MDT NC EUPHORA RX [id number] BALLOON was prepped and advanced across the Mid LAD , then inflated to 14 SAMANTHA for 0:26 seconds. Inflation number: 6 The MDT NC EUPHORA RX 3.13A45OO BALLOON was reinflated across the Mid LAD, to 14 SAMANTHA for 0:23 seconds. Inflation number: 7 The MDT NC EUPHORA RX [id number] BALLOON was reinflated across the Mid LAD, to 14 SAMANTHA for 0:24 seconds. Balloon out. Wire out. Results checked. Guide catheter out. Inventory is JR 4 SH. 6 israeli JR 4 SH guide catheter was inserted over the wire. Runthrough 300cm guidewire was advanced through the guide catheter to lesion in the mid RCA. Inflation number: 1 The MDT NC EUPHORA RX 3.25I41IP BALLOON was reinflated across the Mid RCA, to 12 SAMANTHA for 0:25 seconds. Inflation number: 2 The MDT NC EUPHORA RX 3.78N40VF BALLOON was reinflated across the Mid RCA, to 14 SAMANTHA for 0:22 seconds. Inflation number: 3 The MDT NC EUPHORA RX 3.69V88UL BALLOON was reinflated across the Mid RCA, to 14 SAMANTHA for 0:24 seconds. Balloon out. Results checked. Inflation Number : 4 A MDT R AMBER 3.0X15 MARYBETH -Lot Number# [id number] exp date 11/25/2022 was prepped and advanced across the Mid RCA. The stent was deployed at 14 SAMANTHA for 0:30 seconds. Stent balloon out over wire. Wire out. Guide catheter out. ACT drawn. Results 191 seconds. Therapeutic limits - pre-heparin administration 90-150 seconds and monitoring heparin during a vascular procedure >250 seconds. A right femoral angiogram was performed to determine safe placement of closure device. A Angio-Seal VIP ([place]) was successful obtaining hemostatsis at the Right Femoral artery insertion site. Lot # [id number] exp date 11/25/2022. Post Procedure: Pulses reassessed and unchanged. PERRLA. 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 Physician scrubbed out. Levophed stopped at this time. No VTE prophylaxis required. Medication's Wasted: Lidocaine 1% = 14 mL. Medication's Wasted: Other = versed 0.5 mg. Medication's Wasted: Other = fentanyl 100 mcg. Total IV fluids: 100 mL. Contrast type used: Visipaque 320 mgI/mL, 500 mL bottle. PCI Indication: STEMI. Post-op diagnosis: stemi. Complications: none. Estimated blood loss: 5mL-10mL. Procedure completed. Patient transferred by bed to 1st floor. Vital chart was stopped. Access Site Site: Right Femoral artery Sheath Size: 6 Fr Hemostasis Method: Angio-Seal VIP ([place]) Hemostasis Success: Successful Procedure Medications Start: 11:05 PM Stop: 11:05 PM Medication: Heparin Amount: 3000 units Start: 11:00 PM Stop: 11:00 PM Medication: Versed Amount: 1 mg Route: I.V. Start: 11:23 PM Stop: 11:23 PM Medication: Levophed (norepinephrine) Amount: 5 mcg/min Route: I.V. drip Start: 11:28 PM Stop: 11:28 PM Medication: Versed Amount: 0.5 mg Route: I.V. Start: 11:45 PM Stop: 11:45 PM Medication: Heparin Amount: 2000 units I, the attending physician, have reviewed and verified all procedure medications. Yes, all medications given per verbal order History/Risk Factors Hypertension: No Dyslipidemia: No Peripheral Arterial Disease (PAD): No Myocardial Infarction (SD): No Obesity: No Renal Disease: No Prior Interventions PCI: No CABG: No Valve Surgery: No Report Signatures Finalized by Dony Brown MD on 02/14/2021 11:56 AM
--- NOTE | 2021-02-06 22:35 | PC.NURSE ---
Patient unable to swallow pills due to confusion. Patient kept pocketing the clopedigril pills in cheek without swallowing them.
[2021-02-06 22:39] VITALS: BP 81/46; PULSE 60
[2021-02-06 22:40] VITALS: BP 78/40; PULSE 61
[2021-02-06 22:45] VITALS: BP 87/64; PULSE 60
--- NOTE | 2021-02-06 22:49 | P.HP_ITS ---
Providers/Chief Complaint Admitting Physician: Dony Brown MD Primary Care Provider: RASHMI Grove Chief Complaint: CHEST PAIN AND BODY PAIN History of Present Illness Milagro Salcedo is a 85 year old female with past medical history of hypertension, diabetes, coronary artery disease with prior history of PCI's, dementia presented to the hospital with chest pain symptoms. Her history is not reliable secondary to her dementia. However family was on bedside and mentioned that she has been complaining of chest pain today. Duration of symptoms is not exactly known. EKG demonstrated acute ST elevation FL and anterior wall territory. Decision was made to take patient to cardiac Asset Management Analyst emergently. She was loaded with aspirin, Plavix and was given heparin bolus. Coronary angiography showed occluded proximal to mid LAD stent and severe stenosis of mid RCA stent. She underwent successful revascularization with balloon angioplasty of LAD and PCI of RCA. Post PCI patient is doing well. Her EKG changes and symptoms have resolved. Review of Systems General: Reports: ROS unobtainable due to medical condition Medications/Allergies Home Medications Medication Instructions Recorded Confirmed Last Taken Type blood-glucose meter #1 each 12/24/19 02/07/21 Unknown Rx lancets 26 gauge #200 each 05/25/20 02/07/21 Unknown Rx albuterol sulfate 2.5 mg INHALATION QID PRN #75 ml 06/19/20 02/07/21 Unknown Rx nebulizers #1 each 06/19/20 02/07/21 Unknown Rx blood sugar diagnostic #200 each 09/13/20 02/07/21 Unknown Rx trazodone 50 mg tablet 50 mg PO BEDTIME PRN 90 Days #90 09/13/20 02/07/21 Unknown Rx tab isosorbide mononitrate 60 mg 60 mg PO QAM 90 Days #90 tab 11/20/20 02/07/21 Unknown Rx tablet,extended release 24 hr meloxicam 15 mg tablet 15 mg PO DAILY #90 tab 11/29/20 02/07/21 Unknown Rx pen needle, diabetic 31 gauge x See Rx Instructions .ROUTE 12/07/20 02/07/21 Unknown Rx 1/4 .COMPLEX #100 each ketoconazole 2 % topical cream 1 applic TOPICAL BID #30 gm 12/11/20 02/07/21 Unknown Rx amlodipine 5 mg PO QAM 02/07/21 02/07/21 Unknown History citalopram 10 mg PO QAM 02/07/21 02/07/21 Unknown History cyanocobalamin (vitamin B-12) 1,000 mcg IM .monthly 02/07/21 02/07/21 Unknown History ergocalciferol (vitamin D2) 1,250 mcg PO Q7D 02/07/21 02/07/21 Unknown History insulin detemir U-100 [Levemir 20 unit SUBCUT BID PRN 02/07/21 02/07/21 02/06/21 13:00 History FlexTouch U-100 Insuln] 10 units metoprolol tartrate 25 mg PO BID 02/07/21 02/07/21 Unknown History tramadol [Ultram] 50 mg PO PRN 02/07/21 02/07/21 Unknown History Allergies Allergy/AdvReac Type Severity Reaction Status Date / Time atorvastatin [From Lipitor] Allergy ADR-Cramping Verified 02/07/21 09:38 of the Muscles Penicillins Allergy ALGY-Rash Verified 02/07/21 09:38 simvastatin [From Zocor] Allergy ADR-Cramping Verified 02/07/21 09:38 of the Muscles Sulfa (Sulfonamide Allergy ALGY-Rash Verified 02/07/21 09:38 Antibiotics) PFSH Acute PFSH: Medical History CAD (coronary artery disease) Dementia Diabetes mellitus Hyperlipemia Hypertension Muscle wasting and atrophy, not elsewhere classified, multiple sites Osteoarthritis Surgical History History of colon resection History of coronary artery stent placement Hx of appendectomy Hx of hysterectomy Family History Family/Other Hypertension Heart disease Dementia CAD (coronary artery disease) Hyperlipidemia Social History Smoking and tobacco status: never smoked Second hand smoke exposure: No Alcohol intake: never Lives independently: Yes Household members: spouse and other Details: children rotate staying at night Housing: House Marital status: Current occupational status: retired History of recent travel: No Current gender identity: Female Vitals/I&O/Wt Last Vital Signs Temp 98.5 F 05/11/21 22:00 Pulse 67 02/06/21 21:45 Resp 19 H 02/06/21 22:26 BP 155/81 02/06/21 21:45 Pulse Ox 97 02/06/21 22:26 Weight last 48 hrs Weight 140 lb Physical Exam Narrative: EXAM NARRATIVE: GENERAL: Patient is alert, awake and oriented x3. [] NECK: No jugular vein distension. [] HEENT: No cyanosis. No icterus. No pallor. [] HEART: Regular S1 and S2. No murmur, rub or gallop. [] LUNGS: Clear to auscultate bilaterally. [] ABDOMEN: Soft, nontender and nondistended. Positive bowel sounds. No guarding, rebound or tenderness. [] CENTRAL NERVOUS SYSTEM: Grossly nonfocal. [] EXTREMITIES: Lower extremities with no edema bilaterally. Pulses palpable in the lower extremities, both dorsalis pedis and posterior tibial. 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 transplanted heart: wainwright heart Associated angina: without angina Qualified Code(s): I25.10 - Atherosclerotic heart disease of wainwright coronary artery without angina pectoris (5) Hypertension: Status: Acute Qualifiers: Hypertension type: essential hypertension Qualified Code(s): I10 - Essential (primary) hypertension (6) Dementia: Status: Acute Qualifiers: Dementia type: unspecified type Dementia behavioral disturbance: without behavioral disturbance Qualified Code(s): F03.90 - Unspecified dementia without behavioral disturbance Patient presented with acute ST elevation FL and anterior wall territory. She was found to have occluded proximal to mid LAD stent. She also had a severe 99% stenosis in the RCA. She underwent successful revascularization of the RCA with a stent and a of LAD with balloon angioplasty. In the ER, initiall y family had expressed wishes to keep her DNR DNI per ER physician. I discussed with the family that if he need to do the procedure, we will have to reverse that for at least 24 hours. She will be full code for now. Continue aspirin and Plavix. Ideally it should continue for a year however given her dementia, falls we may have to adjust duration based on how she tolerates dual antiplatelet agents. Order echocardiogram. Trend troponins. Her potassium level was 2.7. She is getting replacement. Telemetry monitoring. During the procedure patient required Levophed transiently. Off of it now and the blood pressure is maintained well. We will hold off on antihypertensive medications at this time. If BP and heart rate tolerates, will initiate low- dose metoprolol. For management of medical issues including diabetes, hospitalist service has been consulted. Appreciate their recommendations. Attestations Medical Necessity Statement*: Care expected to cross 2 midnights. Patient presented with acute ST elevation FL and underwent successful revascularization. 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 transplanted heart: wainwright heart Associated angina: without angina Hypertension I10 Hypertension type: essential hypertension Dementia F03.90 Dementia type: unspecified type Dementia behavioral disturbance: without behavioral disturbance
[2021-02-06] MEDS: clopidogrel 300 mg Tablet 600 MG PO (22:51)
--- NOTE | 2021-02-06 23:11 | PC.NURSE ---
Pt presented to ER c/o chest pain and neck pain. Pt is poor historian. Per family pt chest pain started at 1900, 1 nitro given at home and 324 mg asa given at home. EMS gave 4 mg zofran en route. Per report pt was NSR during transport. 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 Bilateral IV, IV norepi @ bedside.
[2021-02-07] VITALS (63 sets, daily range): BP systolic 83–128; BP diastolic 47–74; PULSE 66–115; RESP 6–27; TEMP 35.9–36.6; O2SAT 86–95
--- NOTE | 2021-02-07 00:13 | PM.CONSULT ---
Providers/Reason For Consult Consulting Physican/Specialty*: Hospitalist service Reason for Consult*: Management of electrolyte imbalance and type 2 diabetes Primary Care Provider: RASHMI Grove History of Present Illness History of Present Illness Milagro Salcedo is a 85 year old female who has established history of coronary disease status post stent, other medical conditions include diabetes, hypertension, dementia presented today with chief complaint of chest pain. STEMI alert was called in the ER, she was taken to the cardiac Urban Planning Professor, status post stent in RCA with balloon angioplasty of in-stent thrombosis of LAD, hospitalist service is consulted for management of diabetes, hypertension & electrolyte imbalance. At the time of my evaluation MAP is 67 heart rate 70s, patient is asleep, family at the bedside. Family is endorsing that today around 7 PM she was sitting in her chair when started complaining of chest discomfort, she was given aspirin and nitroglycerin which did not relieve her symptoms, EMS was called. Her systolic blood pressure was 99 mmHg at home. Normally at baseline her blood pressure runs 110 to 120 mmHg. As per the family her functional status has declined since diagnosis of dementia, her p.o. intake has been very poor she barely takes 2-3 bites of her meals, not able to make her needs known. Review of Systems General: Reports: ROS unobtainable due to medical condition (Dementia, postop, patient asleep) Meds/Allergies Home Medications and Allergies Home Medications Medication Instructions Recorded Confirmed Last Taken Type acetaminophen 1,000 mg PO Q8H #30 tab 12/15/19 12/20/19 Unknown Rx blood-glucose meter #1 each 12/24/19 Unknown Rx lancets 26 gauge #200 each 05/25/20 Unknown Rx albuterol sulfate 2.5 mg INHALATION QID PRN #75 ml 06/19/20 06/19/20 Unknown Rx nebulizers #1 each 06/19/20 06/19/20 Unknown Rx blood sugar diagnostic #200 each 09/13/20 Unknown Rx citalopram 10 mg tablet 10 mg PO DAILY 90 Days #90 tab 09/13/20 Unknown Rx trazodone 50 mg tablet 50 mg PO BEDTIME PRN 90 Days #90 09/13/20 Unknown Rx tab metoprolol tartrate 25 mg tablet See Rx Instructions .ROUTE 10/18/20 Unknown Rx .COMPLEX #180 tab insulin detemir U-100 100 unit/mL 20 unit SUBCUT BID #30 ml 10/20/20 Unknown Rx (3 mL) subcutaneous pen furosemide 20 mg tablet 20 mg PO QAM #30 tab 11/20/20 Unknown Rx isosorbide mononitrate 60 mg 60 mg PO QAM 90 Days #90 tab 11/20/20 Unknown Rx tablet,extended release 24 hr potassium chloride 10 mEq 10 meq PO DAILY #30 tab 11/20/20 Unknown Rx tablet,extended release meloxicam 15 mg tablet 15 mg PO DAILY #90 tab 11/29/20 Unknown Rx amlodipine 5 mg tablet 5 mg PO DAILY 90 Days #90 tab 12/07/20 Unknown Rx pen needle, diabetic 31 gauge x See Rx Instructions .ROUTE 12/07/20 Unknown Rx 10/02 .COMPLEX #100 each cyanocobalamin (vitamin B-12) 1,000 mcg IM .monthly 30 Days #1 ml 12/11/20 Unknown Rx 1,000 mcg/mL injection solution ergocalciferol (vitamin D2) 1,250 1,250 mcg PO .weekly #12 cap 12/11/20 Unknown Rx mcg (50,000 unit) capsule ketoconazole 2 % topical cream 1 applic TOPICAL BID #30 gm 12/11/20 12/11/20 Unknown Rx ciprofloxacin HCl 500 mg tablet 500 mg PO BID #14 tab 12/27/20 Unknown Rx Allergies Allergy/AdvReac Type Severity Reaction Status Date / Time atorvastatin [From Lipitor] Allergy ADR-Cramping Verified 12/19/20 09:19 of the Muscles Penicillins Allergy ALGY-Rash Verified 12/19/20 09:19 simvastatin [From Zocor] Allergy ADR-Cramping Verified 12/19/20 09:19 of the Muscles Sulfa (Sulfonamide Allergy ALGY-Rash Verified 12/19/20 09:19 Antibiotics) Current Medications Current Medications Generic Name Dose Route Start Last Admin Trade Name Freq PRN Reason Stop Dose Admin Morphine Sulfate 4 mg 02/06/21 22:12 02/06/21 22:26 Morphine 4 Mg/Ml Sdv 1 Ml IVP 4 mg Q5M PRN Administration CHEST PAIN PFSH Acute PFSH: Medical History CAD (coronary artery disease) Dementia Diabetes mellitus Hyperlipemia Hypertension Muscle wasting and atrophy, not elsewhere classified, multiple sites Osteoarthritis Surgical History History of colon resection History of coronary artery stent placement Hx of appendectomy Hx of hysterectomy Family History Family/Other Hypertension Heart disease Dementia CAD (coronary artery disease) Hyperlipidemia Social History Smoking and tobacco status: never smoked Second hand smoke exposure: No Alcohol intake: never Lives independently: Yes Household members: spouse and other Details: children rotate staying at night Housing: House Marital status: Current occupational status: retired History of recent travel: No Current gender identity: Female Vitals/I&O/Wt Last Vital Signs Temp 98.5 F 02/06/21 22:00 Pulse 60 02/06/21 22:45 Resp 19 H 02/06/21 22:26 BP 87/64 02/06/21 22:45 Pulse Ox 97 02/06/21 22:26 Weight last 48 hrs Weight 63.503 kg Physical Exam Narrative: EXAM NARRATIVE: Patient was resting comfortably when I entered the room Was saturating well on 2 L nasal cannula Mean arterial pressure 67 mmHg K rider at 25 mL and normal saline at 75 mL/h S1, S2 no murmur appreciated no active signs of heart failure Bilateral breath sounds without crackles Abdomen soft Lower extremity no edema gangrene or ulcer Groin without any bleeding or hematoma Neuro exam limited Family at the bedside A&P Assessment and plan (1) ST elevation myocardial infarction (STEMI): Status: Acute (2) Diabetes mellitus: Status: Acute Qualifiers: Diabetes mellitus type: type 2 Diabetes mellitus regional intermodal truck driver insulin use: with regional intermodal truck driver use Diabetes mellitus complication status: with hyperglycemia Qualified Code(s): E11.65 - Type 2 diabetes mellitus with hyperglycemia; Z79.4 - nursing home (current) use of insulin (3) CAD (coronary artery disease): Status: Acute Qualifiers: Coronary Disease-Associated Artery/Lesion type: [place] artery [place] vs. transplanted heart: [place] heart Associated angina: without angina Qualified Code(s): I25.10 - Atherosclerotic heart disease of [place] coronary artery without angina pectoris (4) Dementia: Status: Acute Qualifiers: Dementia type: unspecified type Dementia behavioral disturbance: without behavioral disturbance Qualified Code(s): F03.90 - Unspecified dementia without behavioral disturbance (5) Hypertension: Status: Acute Qualifiers: Hypertension type: essential hypertension Qualified Code(s): I10 - Essential (primary) hypertension (6) Unsteady gait: Status: Acute Additional A&P Information ST segment elevation [place] Status post stent in RCA balloon angioplasty of LAD with good flow, in-stent thrombosis found in LAD Postoperatively map 67, giving 500 mL normal saline bolus Currently saturating well on 2 L nasal cannula No arrhythmia noted on telemetry EKG reviewed Baseline troponin reviewed Aspirin Plavix started by cardiology Lisinopril and Toprol on hold secondary to hypotension, heart rate is in 70s Her allergy list does include atorvastatin Type 2 diabetes Previous hemoglobin A1c 7.7 As per the family, her p.o. intake has been very poor, current blood glucose 156, would use low-dose sliding scale considering poor p.o. intake Continue normal saline postoperatively for about 8 hours Dementia Poor quality of life, she is not able to make her needs known, dependent on her family members for daily activities, Goals of care discussed with the family: DNR/DNI Resume cardiac/consistent carb diet in the morning DVT prophylaxis Lovenox Consult Attestations Medical Necessity Statement: As per cardiology Time Spent in Patient Care: 30mins Coding Level of Care Code Acute Wet And Dry Sugar Bin Operator for Zahra Helms Diagnoses ST elevation myocardial infarction (STEMI) I21.3 Diabetes mellitus E11.65; Z79.4 Diabetes mellitus type: type 2 Diabetes mellitus regional intermodal truck driver insulin use: with senior living use Diabetes mellitus complication status: with hyperglycemia CAD (coronary artery disease) I25.10 Coronary Disease-Associated Artery/Lesion type: [place] artery [place] vs. transplanted heart: [place] heart Associated angina: without angina Dementia F03.90 Dementia type: unspecified type Dementia behavioral disturbance: without behavioral disturbance Hypertension I10 Hypertension type: essential hypertension Unsteady gait R26.81
[2021-02-07] MEDS: potassium chloride premix 100 ML 25 MEQ IV (00:39)
[2021-02-07 01:43] LABS: Magnesium 1.9 mg/dL (1.7-2.3)
--- NOTE | 2021-02-07 01:53 | PC.NURSE ---
per Dr. Ornelas pt is to receive a 500ml bolus of NS. The liter of fluid that came with the patient that was initiated in flue dust laborer was adjusted to 999ml/hr for 500 ml to provide the ordered bolus
[2021-02-07 04:55] LABS: Basophils # 0.1 10^3/uL (0.0-0.1); Basophils % 0.6 %; Eosinophils % 0.1 %; Hematocrit 36.7 % (37.0-47.0); Hemoglobin 11.6 g/dL (11.5-15.3); Lymphocytes # 1.2 10^3/uL (0.8-4.8); Lymphocytes % 11.3 %; Mean Corpuscular HGB Conc 31.6 g/dL (30.0-36.0); Mean Corpuscular Hemoglobin 29.5 pg (28.0-34.0); Mean Corpuscular Volume 93.4 fL (81-99); Mean Platelet Volume 10.6 fL (7.4-10.4); Monocytes # 0.6 10^3/uL (0.2-0.9); Monocytes % 5.4 %; Neutrophils # 8.91 10^3/uL (1.8-7.7); Neutrophils % 82.1 %; Nucleated Red Blood Cells % 0 %; Platelet Count 315 10^3/cmm (130-400); Red Blood Count 3.93 10^6/uL (4.1-5.3); Red Cell Distribution Width 12.7 % (12.1-15.1); White Blood Count 10.8 10^3/uL (4.0-10.0)
[2021-02-07] MEDS: sodium chloride 0.9% 1,000 ML 75 ML IV (05:02)
[2021-02-07 05:12] LABS: Anion Gap 9.9 (5-19); Blood Urea Nitrogen 7 mg/dL (8-23); Calcium 7.8 mg/dL (8.5-10.5); Carbon Dioxide 30 mmol/L (22-29); Chloride 101 mmol/L (98-107); Creatinine Clr Calc Pharmacy 45.0141; Glucose 176 mg/dL (65-115); Osmolality Calculated 286 mOsm/kg (285-295); Potassium 3.9 mmol/L (3.5-5.1); Sodium 137 mmol/L (136-145)
--- NOTE | 2021-02-07 07:00 | XR_ITS ---
WS: [id number] Portable AP upright chest, 02/07/2021 Clinical Data: cp Comparison: Portable chest, 12/12/2019 Findings: No nodules, masses or effusions are seen. The heart is normal. The pulmonary vascularity is not increased. No pneumonia or pneumothorax is seen. The aortic arch and descending aorta show minim al calcification and tortuosity. Monitor leads are on the chest wall. XR/XR chest 1V portable [id number] Impression: Atherosclerosis.
[2021-02-07 07:56] LABS: Glucose Point of Care 175 mg/dL (70-110)
--- NOTE | 2021-02-07 09:09 | USCV_ITS ---
Milagro Salcedo Age: 85 Gender: F : 1935 Exam Date: 02/07/2021 15:15 Ordering Phys: Dony Brown M.D ([email or web address]) Technologist: Exam Location: [facility] [place] Indication: POST NSTEMI BP: 110 / 66 HR: 86 Rhythm: Sinus Technical Quality: Adequate MEASUREMENTS (Male / Female) Normal Values 2D ECHO LV Diastolic Diameter PLAX 4.6 cm 4.2 - 5.9 / 3.9 - 5.3 cm LV Systolic Diameter PLAX 2.6 cm IVS Diastolic Thickness 1.0 cm 0.6 - 1.0 / 0.6 - 0.9 cm IVS Systolic Thickness 1.4 cm LVPW Diastolic Thickness 1.1 cm 0.6 - 1.0 / 0.6 - 0.9 cm LVPW Systolic Thickness 1.5 cm LVOT Diameter 2.0 cm LV Ejection Fraction 2D Teich 75.2 % LV Ejection Fraction MOD 2C 39.4 % LV Ejection Fraction 2C AL 40.2 % LA Diameter 3.3 cm LA Width 4.0 cm LA Height 3.7 cm RA Width 3.5 cm RA Height 3.9 cm Aorta at Sinotubular Diameter 2.5 cm M-MODE LV Diastolic Diameter MM 4.5 cm 4.2 - 5.9 / 3.9 - 5.3 cm LV Systolic Diameter MM 3.1 cm LV Ejection Fraction MM Teich 61.1 % IVS Diastolic Thickness MM 1.1 cm 0.6 - 1.0 / 0.6 - 0.9 cm IVS Systolic Thickness MM 1.1 cm LVPW Diastolic Thickness MM 1.2 cm 0.6 - 1.0 / 0.6 - 0.9 cm LVPW Systolic Thickness MM 2.1 cm RV Diastolic Diameter MM 1.6 cm Aortic Annulus Diameter 3.2 cm LA Ao Ratio MM 1.0 MV E Point Septal Separation 0.7 cm DOPPLER AV Peak Velocity 94.0 cm/s LVOT Peak Velocity 76.0 cm/s AV Area Cont Eq vti 2.8 cm squared AV Area Cont Eq pk 2.6 cm squared MV Area PHT 5.1 cm squared Mitral E to A Ratio 0.9 MV E' Velocity 46.5 cm/s Mitral E to MV E' Ratio 17.1 Mitral E to LV E' Lateral Ratio 15.6 Mitral E to LV E' Septal Ratio 18.9 TR Peak Velocity 227.0 cm/s TR Peak Gradient 20.6 mmHg TV Peak E Velocity 78.0 cm/s Right Atrial Pressure 3.0 mmHg Pulmonary Artery Systolic Pressu 23.6 mmHg FINDINGS Left Ventricle Normal left ventricular size. LV systolic function is moderate to severely reduced with EF of 30-35%. There is moderate global hypokinesis with severe hypokinesis of basal to distal inferior, apical and anteroseptal kumar . Diastolic function is abnormal. Elevated filling pressures Right Ventricle The right ventricle is normal in size and function. Right Atrium The right atrium is normal in size. Left Atrium The left atrium is normal in size. Mitral Valve Mild mitral annular calcification without significant stenosis or prolapse. There is no mitral regurgitation. Aortic Valve Aortic valve is thickened. No significant stenosis is noted. There is no aortic regurgitation. Tricuspid Valve Structurally normal tricuspid valve without significant stenosis. Mild tricuspid regurgitation. RVSP is 30-35mmHg. This is consistent with mild pulmonary hypertension Pulmonic Valve Grossly normal Pericardium Normal pericardium without effusion. Aorta Normal ascending aorta dimension. CONCLUSIONS LV systolic function is moderate to severely reduced with EF of 30-35%. Above mentioned wall motion abnormalities. Diatsolic function is abnormal. Elevated filling pressures Mild pulmonary hyertension No significant valvular heart disease No comparison study is available Dony Brown MD (Electronically Signed) Final Date: 07 Feb 2021 17:37 S
--- NOTE | 2021-02-07 09:38 | PC.PHAR ---
pts daughter filiberto verified pts medications-states the pt has been off of the lasix and kcl for 6 weeks ext med history shows last filled on 01/02/21 30d/s-states the pt doesnt always take 20units bid of the levemir states it depends on the blood sugar level-states the pt has ultram but hardly ever takes it-states the pt hasnt started the vitamin b-12 injection-
[2021-02-07] MEDS: clopidogrel 75 mg Tablet PO (09:53)
[2021-02-07] MEDS: aspirin 81 mg EC Tablet PO (09:53)
--- NOTE | 2021-02-07 10:13 | PM.PN ---
Subjective Subjective: Interval history: Patient is doing well. Denies complaints of chest pain, shortness of breath or palpitations. Vitals/I&O/Wt Last Vital Signs Temp 98 F 02/07/21 04:18 Pulse 73 02/07/21 07:15 Resp 13 02/07/21 07:15 BP 87/59 02/07/21 07:15 Pulse Ox 94 02/07/21 07:15 02/06/21 02/07/21 02/07/21 22:59 06:59 14:59 Intake Total 100 / 100 60 / 60 Balance 100 / 100 60 / 60 Weight last 48 hrs Weight 140 lb Physical Exam Narrative: EXAM NARRATIVE: GENERAL: Patient is alert, awake , pleasantly confused NECK: No jugular vein distension. [] HEENT: No cyanosis. No icterus. No pallor. [] HEART: Regular S1 and S2. No murmur, rub or gallop. [] LUNGS: Clear to auscultate bilaterally. [] ABDOMEN: Soft, nontender and nondistended. Positive bowel sounds. No guarding, rebound or tenderness. [] CENTRAL NERVOUS SYSTEM: Grossly nonfocal. [] EXTREMITIES: Lower extremities with no edema bilaterally. Pulses palpable in the lower extremities, both dorsalis pedis and posterior tibial. [] Data : 02/07/21 04:13 02/07/21 04:13 A&P Assessment and plan (1) ST elevation myocardial infarction (STEMI): Status: Acute (2) Diabetes mellitus: Status: Acute Qualifiers: Diabetes mellitus type: type 2 Diabetes mellitus nursing home insulin use: with nursing home use Diabetes mellitus complication status: with hyperglycemia Qualified Code(s): E11.65 - Type 2 diabetes mellitus with hyperglycemia; Z79.4 - longterm (current) use of insulin (3) Hyperlipemia: Status: Acute (4) CAD (coronary artery disease): Status: Acute Qualifiers: Coronary Disease-Associated Artery/Lesion type: [place] artery [place] vs. transplanted heart: [place] heart Associated angina: without angina Qualified Code(s): I25.10 - Atherosclerotic heart disease of [place] coronary artery without angina pectoris (5) Hypertension: Status: Acute Qualifiers: Hypertension type: essential hypertension Qualified Code(s): I10 - Essential (primary) hypertension (6) Dementia: Status: Acute Qualifiers: Dementia type: unspecified type Dementia behavioral disturbance: without behavioral disturbance Qualified Code(s): F03.90 - Unspecified dementia without behavioral disturbance Patient presented with acute ST elevation [place] and anterior wall territory. She was found to have occluded proximal to mid LAD stent. She also had a severe 99% stenosis in the RCA. She underwent successful revascularization of the RCA with a stent and a of LAD with balloon angioplasty. We had reversed CODE STATUS for the duration of the procedure and will be made DNR/DNI according to patient's family's wishes. Continue aspirin and Plavix. Ideally it should continue for a year however given her dementia, falls we may have to adjust duration based on how she tolerates dual antiplatelet agents. Echocardiogram has been ordered. Will follow. Potassium level has normalized after supplementation. Telemetry monitoring. We will initiate metoprolol today. However if becomes hypotensive may have to decrease the dose or stop it. For management of medical issues including diabetes, hospitalist service has been consulted. Appreciate their recommendations. Attestations Medical Necessity Statement*: Care expected to cross 2 midnights. Patient is status post revascularization of LAD and RCA and had presented with acute ST elevation [place] of the anterior wall. Coding Level of Care Code Acute Head Strength And Conditioning Coach for [facility] Scooter Diagnoses ST elevation myocardial infarction (STEMI) I21.3 Diabetes mellitus E11.65; Z79.4 Diabetes mellitus type: type 2 Diabetes mellitus nursing home insulin use: with termination clerk use Diabetes mellitus complication status: with hyperglycemia Hyperlipemia E78.5 CAD (coronary artery disease) I25.10 Coronary Disease-Associated Artery/Lesion type: [place] artery [place] vs. transplanted heart: [place] heart Associated angina: without angina Hypertension I10 Hypertension type: essential hypertension Dementia F03.90 Dementia type: unspecified type Dementia behavioral disturbance: without behavioral disturbance
[2021-02-07 11:05] LABS: Glucose Point of Care 163 mg/dL (70-110)
--- NOTE | 2021-02-07 12:02 | PC.NURSE ---
spoke with Dr lester with concerns patient has no voided this shift instructions to obtain bladder scan if possible explained to the bladder scanner is currently down patient has been up to BSC with no void family explains patient is very incontinent at home instructions received from Dr lester to start fluids at 75ml per hour for 6 hours also spoke about current BG management at home patient does not take short acting coverage and intake is very poor instructions to hold coverage although continue to monitor accu checks as ordered
--- NOTE | 2021-02-07 14:19 | P.PN_ITS ---
Subjective Subjective: Interval history: Patient states that she is doing just fine. She is currently insisting that she does not need to get back into bed. She is not been able to urinate. Straight cath was done with 300 cc of urine output. Oral intake was not good initially but it has improved throughout the day. Medications: Reviewed: Yes Vitals/I&O/Wt Last Vital Signs Temp 96.6 F L 02/07/21 10:47 Pulse 80 02/07/21 11:40 Resp 17 02/07/21 11:40 BP 128/64 02/07/21 11:40 Pulse Ox 93 02/07/21 11:40 02/06/21 02/07/21 02/07/21 22:59 06:59 14:59 Intake Total 100 / 100 60 / 60 Balance 100 / 100 60 / 60 Weight last 48 hrs Weight 63.503 kg Physical Exam Narrative: EXAM NARRATIVE: Constitutional: Awake and alert, oriented to person and the fact that she is not where she would like to be, has to be encouraged to be cooperative HEENT: Moist mucous membranes Respiratory: Clear to auscultation bilaterally Cardiovascular: Regular, cath site in the right femoral area intact with no bleeding noted Abdomen: Soft, nontender Extremities: No edema Neuro: Moves all extremities, clear Data : 02/07/21 04:13 02/07/21 18:40 A&P Assessment and plan (1) ST elevation myocardial infarction (STEMI): Status: Acute Qualifiers: Involved coronary artery: right coronary artery Qualified Code(s): I 21.11 - ST elevation (STEMI) myocardial infarction involving right coronary artery (2) Hypertension: History, currently low normal blood pressures off of usual medications which include isosorbide and metoprolol Status: Chronic Qualifiers: Hypertension type: essential hypertension Qualified Code(s): I10 - Essential (primary) hypertension (3) Diabetes mellitus: Status: Chronic Qualifiers: Diabetes mellitus type: type 2 Diabetes mellitus 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 insulin use: with 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 use Diabetes mellitus complication status: with hyperglycemia Qualified Code(s): E11.65 - Type 2 diabetes mellitus with hyperglycemia; Z79.4 - ad terminal makeup operator (current) use of insulin (4) Dementia: Status: Chronic Qualifiers: Dementia type: unspecified type Dementia behavioral disturbance: without behavioral disturbance Qualified Code(s): F03.90 - Unspecified dementia without behavioral disturbance (5) Osteoarthritis: Status: Chronic Qualifiers: Osteoarthritis location: multiple joints Osteoarthritis type: unspecified Qualified Code(s): M15.9 - Polyosteoarthritis, unspecified Additional A&P Information Resume albuterol as needed, citalopram, as needed tramadol and as needed trazodone We will probably need to discontinue meloxicam though with age potential risk may not outweigh benefits for pain control We will change insulin sliding scale to usual bedtime low-dose scale Antihypertensive and other related management as per cardiology, currently on aspirin and Plavix with plan indicated to initiate low-dose beta-blockade. Has statin allergy. Monitor overall volume status Lines/tubes: Peripheral IVs DVT prophylaxis: Patient will not tolerate SCDs; anticoagulation as per cardiology Plans, findings and concerns discussed with patient's daughter and her and her as much as they could understand. All were given an opportunity to ask questions Anticipated Disposition: Home with family Code Status: Allow natural Attestations Medical Necessity Statement*: As per cardiology Coding Level of Care Code Acute Humanities Professor for Zahra Helms Diagnoses ST elevation myocardial infarction (STEMI) I21.11 Involved coronary artery: right coronary artery Hypertension I10 Hypertension type: essential hypertension Diabetes mellitus E11.65; Z79.4 Diabetes mellitus type: type 2 Diabetes mellitus nursing home insulin use: with 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 use Diabetes mellitus complication status: with hyperglycemia Dementia F03.90 Dementia type: unspecified type Dementia behavioral disturbance: without behavioral disturbance Osteoarthritis M15.9 Osteoarthritis location: multiple joints Osteoarthritis type: unspecified
[2021-02-07 16:19] LABS: Glucose Point of Care 201 mg/dL (70-110)
[2021-02-07] MEDS: FUROsemide 10 mg/mL SDV 2mL 20 MG IVP (17:23)
--- NOTE | 2021-02-07 17:25 | PC.NURSE ---
call placed to Dr Cat to report patient BG of 201 and insulins on hold no change in orders at this time will continue to monitor BG
--- NOTE | 2021-02-07 18:20 | XRR_ITS ---
PROCEDURE INFORMATION: Exam: XR Chest Exam date and time: 02/07/2021 6:37 PM Age: 85 years old Clinical indication: Pain; Chest pressure; Additional info: Increase o2 TECHNIQUE: Imaging protocol: XR of the chest. Views: 1 view. COMPARISON: CR XR chest 1V portable [id number] 02/07/2021 6:47 AM FINDINGS: Patient is rotated and lung volumes are somewhat low, limiting assessment. Otherwise no focal right pulmonary consolidation is demonstrated on this single frontal image. No significant obscuration of the right lateral costophrenic angle is demonstrated. There is now central vascular prominence. There is now moderate ill-defined opacification at left lung base and left mid lung zone, could represent edema and/or infiltrate/atelectasis. Underlying left pleural effusion not excluded. There is scattered pulmonary scarring bilaterally. Visualized cardiac silhouette size appears mildly enlarged. Pericardial effusion not excluded. There are calcifications in the thoracic aorta. XR/XR chest 1V portable [id number] IMPRESSION: There is now central vascular prominence. There is now moderate ill-defined opacification at left lung base and left mid lung zone, could represent edema and/or infiltrate/atelectasis. Underlying left pleural effusion not excluded. Visualized cardiac silhouette size appears mildly enlarged. Pericardial effusion not excluded.
--- NOTE | 2021-02-07 18:30 | PC.NURSE ---
Dr lester notified of patient increased hr and moaning inability to tell was wrong and decreased Oxygenation to the 70's reported to . placed patient on 15litters oxy mask patient refusing to let nursing staff place on face mask held up in front of face o2 up some to the low 80s instructions to order chest xray and BMP stat
[2021-02-07 19:04] LABS: Anion Gap 13.2 (5-19); Blood Urea Nitrogen 8 mg/dL (8-23); Calcium 8.2 mg/dL (8.5-10.5); Carbon Dioxide 27 mmol/L (22-29); Chloride 97 mmol/L (98-107); Creatinine Clr Calc Pharmacy 45.0141; Glucose 188 mg/dL (65-115); Osmolality Calculated 281 mOsm/kg (285-295); Potassium 3.2 mmol/L (3.5-5.1); Sodium 134 mmol/L (136-145)
--- NOTE | 2021-02-07 20:17 | PC.NURSE ---
Received bedside report from Asia Sharpe RN. Patient has large episode of incontinence of urine. Cleaned patient and performed linen change. Received permission from Dr Brown to have a family member to remain with patient due to level of dementia. Patient is pleasant and cooperative. Patient currently on 5L NC due to SpO2 decreasing as low as 70s. Patient requires redirection to leave O2 in place.
[2021-02-08] VITALS (56 sets, daily range): BP systolic 109–119; BP diastolic 69–72; PULSE 90–117; RESP 16–42; TEMP 36.8; O2SAT 76–96
[2021-02-08] MEDS: TRAMadol 50 mg Tablet PO ×2 (03:36→14:29)
[2021-02-08] MEDS: lanolin oint 7 gm 1 APPLIC TOPICAL (03:51)
--- NOTE | 2021-02-08 04:45 | PC.NURSE ---
Patient heart rate currently sustaining 110s to 120s. Patient was given pain medication as ordered earlier for pain in back and hips. SpO2 85 to 90% on 8L high flow NC. Informed Dr Ornelas and received order to give first dose of metoprolol 12.5mg PO Now.
[2021-02-08 04:51] LABS: Anion Gap 12.9 (5-19); Blood Urea Nitrogen 9 mg/dL (8-23); Calcium 8.2 mg/dL (8.5-10.5); Carbon Dioxide 28 mmol/L (22-29); Chloride 95 mmol/L (98-107); Creatinine Clr Calc Pharmacy 45.0141; Glucose 193 mg/dL (65-115); Osmolality Calculated 280 mOsm/kg (285-295); Sodium 133 mmol/L (136-145)
[2021-02-08 04:54] LABS: Potassium 2.9 mmol/L (3.5-5.1)
--- NOTE | 2021-02-08 05:06 | PC.NURSE ---
Patient refused to take one time dose of metoprolol 12.5mg PO at this time. Son at bedside attempted to encourage patient to take her medicine for her heart. Patient pursed lips together and continued to refuse medication. Patient stated, It's just a waste anyway. Son agreeable to attempt with 0900 dosing. Patient heart rate continues at 110s to 120s. Patient denies any complaints at this time except for taking a pill. No distress observed.
[2021-02-08] MEDS: lidocaine 1% 5 ML in potassium chloride premix 100 ML 25 ML IV (05:37)
[2021-02-08 07:03] LABS: Glucose Point of Care 183 mg/dL (70-110)
--- NOTE | 2021-02-08 08:11 | PM.PN ---
Subjective Subjective: Interval history: Tachycardic and short of breath last evening. Received lasix times one dose. Was restless. Has issues with sundowning at home and experienced the same here. This morning denies chest pain or shortness of breath. eating some breakfast with encouragement. No other complaints. Medications: Reviewed: Yes Vitals/I&O/Wt Last Vital Signs Temp 98.2 F 02/08/21 05:53 Pulse 110 H 02/08/21 07:19 Resp 31 H 02/08/21 07:19 BP 119/72 02/08/21 07:19 Pulse Ox 92 02/08/21 07:19 02/07/21 02/08/21 02/08/21 22:59 06:59 14:59 Intake Total 1000 / 1060 120 / 1180 Balance 1000 / 1060 120 / 1180 Weight last 48 hrs Weight 63.503 kg Physical Exam Narrative: EXAM NARRATIVE: Constitutional: Awake and alert, pleasant and cooperative HEENT: EOMI, mucus membranes moist Respiratory: No wheezes, decreased at bases Cardiovascular: Regular rhythm, no murmurs, cath site in the right femoral area intact, scant serosanguinous draining on dressing, no visible bruising Abdomen: Soft, nontender Extremities: No edema Neuro: Moves all extremities, speech clear, face symmetric Data : 02/07/21 04:13 02/08/21 03:52 A&P Assessment and plan (1) ST elevation myocardial infarction (STEMI): Status post intervention. Had some fluid overload last evening. Tachycardic. But no complaints this morning Status: Acute Qualifiers: Involved coronary artery: right coronary artery Qualified Code(s): I21.11 - ST elevation (STEMI) myocardial infarction involving right coronary artery (2) Systolic CHF: new diagnosis post STEMI Status: Acute Qualifiers: Heart failure chronicity: acute Qualified Code(s): I50.21 - Acute systolic (congestive) heart failure (3) Hypertension: History, intially low normal blood pressures off of usual medications which include isosorbide and metoprolol. Metoprolol resumed at low dose. 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 insulin use: with senior living use Diabetes mellitus complication status: with hyperglycemia Qualified Code(s): E11.65 - Type 2 diabetes mellitus with hyperglycemia; Z79.4 - rn long term care (current) use of insulin (5) Dementia: Status: Chronic Qualifiers: Dementia type: unspecified type Dementia behavioral disturbance: without behavioral disturbance Qualified Code(s): F03.90 - Unspecified dementia without behavioral disturbance (6) Osteoarthritis: Status: Chronic Qualifiers: Osteoarthritis location: multiple joints Osteoarthritis type: unspecified Qualified Code(s): M15.9 - Polyosteoarthritis, unspecified Additional A&P Information Hypokalemia after lasix Potassium was repleted this am Check magnesium Assume will need regular diuresis as blood pressure allows Would potentially benefit from nik/arb/entresto but defer to cardiology determination given age and comorbidities On aspirin, plavix, metoprol, intolerant of statins Has albuterol as needed On home citalopram Has usual as needed tramadol and as needed trazodone Ideally need to discontinue meloxicam though with age potential risk may not outweigh benefits for pain control Continue low dose insulin sliding scale monitoring oral intake and blood sugars Lines/tubes: Peripheral IVs DVT prophylaxis: Patient will not tolerate SCDs; anticoagulation as per cardiology, is getting out of bed Plans, findings and concerns discussed with son at the bedside He was given an opportunity to ask questions. 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
[2021-02-08] MEDS: citalopram 20 mg Tablet 10 MG PO (08:52)
[2021-02-08] MEDS: aspirin 81 mg EC Tablet PO (08:52)
[2021-02-08] MEDS: FUROsemide 10 mg/mL SDV 2mL 20 MG IVP ×2 (08:52→22:23)
[2021-02-08] MEDS: clopidogrel 75 mg Tablet PO (08:52)
[2021-02-08] MEDS: metoprolol tartrate 25 mg Tablet PO ×2 (08:53→20:02)
[2021-02-08 09:01] LABS: Magnesium 1.6 mg/dL (1.7-2.3); NT Pro B Type Natriuretic Pept 23450 pg/mL (0-450)
[2021-02-08] MEDS: potassium chloride premix 100 ML 25 MEQ IV (09:18)
--- NOTE | 2021-02-08 10:24 | PC.CHAP ---
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 visit [] Patient/Family/Request visit [] Outpatient visit [] Follow-up visit [] Physician referral [] Code/Alert [x] Routine visit [] Staff referral [] Actively dying [] Patient sleeping [] Family support [] [] Out of room [] Palliative care [] [x] Receiving care in room [] Pre-surgical visit [x] Trauma [x] Long length of stay [] ICU visit [] Other: Relational/Emotional Strength [x] Patient feels connected with others/family/visitors/staff [x] Distress [] Loneliness/isolation [] Abandonment Spirituality of Patient [x] Person of Kelly [] Attends Rastafarian of their Kelly [x] Believes in Prayer [] Reads Bible or Uatsdin materials [] There are Spiritual issues to be addressed Systems Analyst Engineer Interventions [x] Prayer [x] Active listening [x] Non-anxious presence [x] Spiritual/emotional support [] Crisis/trauma care [x] Spiritual counseling [] Bereavement support [] Provided bereavement packet [] Provided Bible/devotional materials [] Provided toy/stuffed animal, coloring book to patient or family member [] Provided Communion [] Anointing/[place] [] Salvation [x] Completed spiritual assessment [] Other: Impact on Illness or Injury [] Angry [x] Fearful [] Anxious [] Often cries [] Exhaustion [x] Unable to work [] Unable to attend alevism [] Unable to walk/stand [] Unable to read [] Unable to drive [] Unable to eat/drink [] Unable to sleep [] Unable to be with family [] Patient intubated [] Other: Summary staff not able to communicate her feelings, will go back to senior care, [facility], chest pain, has good attitude Time spent with patient 10 mins
--- NOTE | 2021-02-08 10:56 | P.PN_ITS ---
Subjective Subjective: Interval history: Patient had low urine output yesterday. Her O2 sats have been low and has mild crakcles. NT proBNP was elevated as well. ECHO showed EF of 30-35% She denies any complaints of chest pain, shortness of breath or palpitations. She is confused Vitals/I&O/Wt Last Vital Signs Temp 98.2 F 02/08/21 05:53 Pulse 113 H 02/08/21 08:24 Resp 24 H 02/08/21 08:24 BP 119/72 02/08/21 07:19 Pulse Ox 95 02/08/21 08:24 02/07/21 02/08/21 02/08/21 22:59 06:59 14:59 Intake Total 1000 / 1060 120 / 1180 120 / 120 Balance 1000 / 1060 120 / 1180 120 / 120 Weight last 48 hrs Weight 140 lb Physical Exam Narrative: EXAM NARRATIVE: GENERAL: Patient is alert, awake , pleasantly confused NECK: No jugular vein distension. [] HEENT: No cyanosis. No icterus. No pallor. [] HEART: Regular S1 and S2. No murmur, rub or gallop. [] LUNGS:Mild crackles ABDOMEN: Soft, nontender and nondistended. Positive bowel sounds. No guarding, rebound or tenderness. [] CENTRAL NERVOUS SYSTEM: Grossly nonfocal. [] EXTREMITIES: Lower extremities with no edema bilaterally. Pulses palpable in the lower extremities, both dorsalis pedis and posterior tibial. 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 transplanted heart: lummi heart Associated angina: without angina Qualified Code(s): I25.10 - Atherosclerotic heart disease of lummi coronary artery without angina pectoris (5) Hypertension: Status: Chronic Qualifiers: Hypertension type: essential hypertension Qualified Code(s): I10 - Essential (primary) hypertension (6) Dementia: Status: Chronic Qualifiers: Dementia type: unspecified type Dementia behavioral disturbance: with out behavioral disturbance Qualified Code(s): F03.90 - Unspecified dementia without behavioral disturbance (7) HFrEF (heart failure with reduced ejection fraction): Status: Acute Patient presented with acute ST elevation PA and anterior wall territory. She was found to have occluded proximal to mid LAD stent. She also had a severe 99% stenosis in the RCA. She underwent successful revascularization of the RCA with a stent and a of LAD with balloon angioplasty. Patient has HFrEF with EF of 30-35%. She is volume overloaded. Started on Lasix 20mg BID Continue aspirin and Plavix. Ideally it should continue for a year however given her dementia, falls we may have to adjust duration based on how she tolerates dual antiplatelet agents. Potassium replaced Telemetry monitoring. Metoprolol started. If renal function is normal by tomorrow morning, will initiate low dose lisinopril For management of medical issues including diabetes, hospitalist service has been consulted. Appreciate their recommendations. Attestations Medical Necessity Statement*: Care expected to cross 2 midnights. Patient had STEMI and has now developed heart failure. Requiring IV diuresis Coding Level of Care Code Acute Principal Technical Writer for Zahra Helms Diagnoses ST elevation myocardial infarction (STEMI) I21.11 Involved coronary artery: right coronary artery Diabetes mellitus E11.65; Z79.4 Diabetes mellitus type: type 2 Diabetes mellitus care home insulin use: with care home use Diabetes mellitus complication status: with hyperglycemia Hyperlipemia E78.5 CAD (coronary artery disease) I25.10 Coronary Disease-Associated Artery/Lesion type: lummi artery [place] vs. transplanted heart: lummi heart Associated angina: without angina Hypertension I10 Hypertension type: essential hypertension Dementia F03.90 Dementia type: unspecified type Dementia behavioral disturbance: without behavioral disturbance HFrEF (heart failure with reduced ejection fraction) I50.20
[2021-02-08 11:56] LABS: Glucose Point of Care 164 mg/dL (70-110)
[2021-02-08] MEDS: potassium chloride oral liq 20 mEq/15 mL UDC PO (13:32)
[2021-02-08] MEDS: ALPRAZolam 0.25 mg Tablet PO ×2 (15:54→20:56)
[2021-02-08 16:44] LABS: Glucose Point of Care 176 mg/dL (70-110)
--- NOTE | 2021-02-08 19:19 | PC.NURSE ---
Received report from LOYD Lyles. Patient resting in bed with eyes closed and even respirations observed. Daughter at bedside. No distress noted.
[2021-02-08] MEDS: trazodone 50 mg Tablet PO (20:02)
[2021-02-08 20:43] LABS: Glucose Point of Care 175 mg/dL (70-110)
[2021-02-09] VITALS (12 sets, daily range): BP systolic 98–109; BP diastolic 30–74; PULSE 91–118; RESP 18–22; TEMP 36.6–37.4; O2SAT 88–94
[2021-02-09 06:04] LABS: Basophils # 0.1 10^3/uL (0.0-0.1); Basophils % 0.7 %; Eosinophils # 0.1 10^3/uL (0.0-0.8); Eosinophils % 0.8 %; Hematocrit 41.3 % (37.0-47.0); Hemoglobin 13.2 g/dL (11.5-15.3); Lymphocytes # 1.3 10^3/uL (0.8-4.8); Lymphocytes % 10.5 %; Mean Corpuscular Hemoglobin 30.1 pg (28.0-34.0); Mean Corpuscular Volume 94.3 fL (81-99); Mean Platelet Volume 11.1 fL (7.4-10.4); Monocytes # 1.1 10^3/uL (0.2-0.9); Monocytes % 9.3 %; Neutrophils # 9.34 10^3/uL (1.8-7.7); Neutrophils % 78.3 %; Nucleated Red Blood Cells % 0 %; Platelet Count 278 10^3/cmm (130-400); Red Blood Count 4.38 10^6/uL (4.1-5.3); Red Cell Distribution Width 13.2 % (12.1-15.1); White Blood Count 11.9 10^3/uL (4.0-10.0)
[2021-02-09 06:46] LABS: Glucose Point of Care 176 mg/dL (70-110)
[2021-02-09 06:52] LABS: Blood Urea Nitrogen 15 mg/dL (8-23); Calcium 8.3 mg/dL (8.5-10.5); Carbon Dioxide 27 mmol/L (22-29); Chloride 97 mmol/L (98-107); Creatinine Clr Calc Pharmacy 39.1485; Glucose 153 mg/dL (65-115); Magnesium 1.8 mg/dL (1.7-2.3); Osmolality Calculated 284 mOsm/kg (285-295); Sodium 135 mmol/L (136-145)
[2021-02-09 06:53] LABS: Anion Gap 15.4 (5-19); Potassium 4.4 mmol/L (3.5-5.1)
--- NOTE | 2021-02-09 07:37 | P.PN_ITS ---
Subjective Subjective: Interval history: Patient denies any symptoms. She is still requiring 8-9liter O2. Vitals/I&O/Wt Last Vital Signs Temp 98.2 F 02/08/21 05:53 Pulse 93 02/09/21 05:41 Resp 20 H 02/09/21 04:04 BP 119/72 02/08/21 22:15 Pulse Ox 90 02/09/21 04:04 02/08/21 02/09/21 02/09/21 22:59 06:59 14:59 Intake Total 200 / 517.5 Balance 200 / 517.5 Weight last 48 hrs Weight 133 lb 6.4 oz Physical Exam Narrative: EXAM NARRATIVE: GENERAL: Patient is alert, awake , pleasantly confused NECK: No jugular vein distension. [] HEENT: No cyanosis. No icterus. No pallor. [] HEART: Regular S1 and S2. No murmur, rub or gallop. [] LUNGS:Mild crackles ABDOMEN: Soft, nontender and nondistended. Positive bowel sounds. No guarding, rebound or tenderness. [] CENTRAL NERVOUS SYSTEM: Grossly nonfocal. [] EXTREMITIES: Lower extremities with no edema bilaterally. Pulses palpable in the lower extremities, both dorsalis pedis and posterior tibial. 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 transplanted heart: [place] heart Associated angina: without angina Nick lified Code(s): I25.10 - Atherosclerotic heart disease of [place] coronary artery without angina pectoris (5) Hypertension: Status: Chronic Qualifiers: Hypertension type: essential hypertension Qualified Code(s): I10 - Essential (primary) hypertension (6) Dementia: Status: Chronic Qualifiers: Dementia type: unspecified type Dementia behavioral disturbance: without behavioral disturbance Qualified Code(s): F03.90 - Unspecified dementia without behavioral disturbance (7) HFrEF (heart failure with reduced ejection fraction): Status: Acute Patient presented with acute ST elevation DC in anterior wall territory. She was found to have occluded proximal to mid LAD stent. She also had a severe 99% stenosis in the RCA. She underwent successful revascularization of the RCA with a stent and of LAD with balloon angioplasty. Patient has HFrEF with EF of 30-35%. Started on Lasix 20mg BID. Her urine output is low. If renal function worsens, will have to hold off on diuresis. Will repeat CXR today Continue aspirin and Plavix. Ideally it should continue for a year however given her dementia, falls we may have to adjust duration based on how she tolerates dual antiplatelet agents. Potassium is normal today Telemetry monitoring. Metoprolol started. For management of medical issues including diabetes, hospitalist service has been consulted. Appreciate their recommendations. Attestations Medical Necessity Statement*: Care expected to cross 2 midnights. Patient had acute STEMI and has developed HFrEF, requiring O2 and diuresis. Coding Level of Care Code Acute Home Teaching Grades 9 Thru 12 Teacher for Zahra Helms Diagnoses ST elevation myocardial infarction (STEMI) I21.11 Involved coronary artery: right coronary artery Diabetes mellitus E11.65; Z79.4 Diabetes mellitus type: type 2 Diabetes mellitus filler leaf cutter long insulin use: with filler leaf cutter long use Diabetes mellitus complication status: with hyperglycemia Hyperlipemia E78.5 CAD (coronary artery disease) I25.10 Coronary Disease-Associated Artery/Lesion type: [place] artery [place] vs. transplanted heart: [place] heart Associated angina: without angina Hypertension I10 Hypertension type: essential hypertension Dementia F03.90 Dementia type: unspecified type Dementia behavioral disturbance: without behavioral disturbance HFrEF (heart failure with reduced ejection fraction) I50.20
[2021-02-09] MEDS: metoprolol tartrate 25 mg Tablet PO ×2 (08:34→21:13)
[2021-02-09] MEDS: clopidogrel 75 mg Tablet PO (08:34)
[2021-02-09] MEDS: aspirin 81 mg EC Tablet PO (08:34)
[2021-02-09] MEDS: TRAMadol 50 mg Tablet PO ×2 (08:34→21:12)
[2021-02-09] MEDS: citalopram 20 mg Tablet 10 MG PO (08:34)
--- NOTE | 2021-02-09 10:27 | PC.NUTR ---
Nutrition assessment completed d/t nursing consult and MST score. Will downgrade diet texture to mechanical soft and add Ensure Plus with meals. Will monitor available blood sugars and consider change to Glucerna if appropriate, however additional kcal from Ensure Plus (350 kcal/bottle) beneficial at this time. Will also add pt preferences for oatmeal and pudding to dietary information. Attempted to reach Dr. Brown to recommend ROTOR COIL TAPER [place] but not able to reach at this time. See RD assessment for further details.
[2021-02-09 11:25] LABS: Glucose Point of Care 203 mg/dL (70-110)
[2021-02-09] MEDS: FUROsemide 10 mg/mL SDV 2mL 20 MG IVP ×2 (13:02→22:58)
[2021-02-09 14:53] LABS: NT Pro B Type Natriuretic Pept 29496 pg/mL (0-450)
--- NOTE | 2021-02-09 15:41 | PM.PN ---
Subjective Subjective: Interval history: Patient occasionally with some wheezing and cough per daughter. She has been started on some Lasix secondary to systolic dysfunction. Tolerating her home dose of metoprolol and the low-dose Lasix thus far. Does not yet have a negative fluid balance. She herself has no complaints of chest pain. Not currently short of breath. Medications: Reviewed: Yes Vitals/I&O/Wt Last Vital Signs Temp 99.4 F 02/09/21 15:31 Pulse 93 02/09/21 15:31 Resp 19 H 02/09/21 15:31 BP 98/74 02/09/21 15:31 Pulse Ox 91 02/09/21 15:31 02/09/21 02/09/21 02/09/21 06:59 14:59 22:59 Intake Total 240 / 240 Balance 240 / 240 Weight last 48 hrs Weight 60.509 kg Physical Exam Narrative: EXAM NARRATIVE: Constitutional: Awake and alert, sitting up in bed trying to fold her blanket HEENT: Extraocular movements are intact, mucous membranes moist Respiratory: No wheezes, upper airway noise noted that clears with coughing, slightly decreased at bases, no rales on my examination Cardiovascular: Regular rhythm, no murmurs, right groin cath site intact Abdomen: Soft, nontender Extremities: No pitting edema Neuro: Moves all extremities, speech clear, face symmetric Data : 02/09/21 05:40 02/09/21 04:23 Other Labs: Laboratory Tests 02/07/21 02/07/21 02/07/21 07:52 10:47 15:56 POC Glucose 175 H 163 H 201 H 02/08/21 02/08/21 02/08/21 06:47 11:35 16:01 POC Glucose 183 H 164 H 176 H 02/08/21 02/09/21 02/09/21 20:00 06:27 10:58 POC Glucose 175 H 176 H 203 H A&P Assessment and plan (1) ST elevation myocardial infarction (STEMI): Status post intervention day of admission. Status: Acute Qualifiers: Involved coronary artery: right coronary artery Qualified Code(s): I21.11 - ST elevation (STEMI) myocardial infarction involving right coronary artery (2) Systolic CHF: new diagnosis post STEMI, requiring some oxygen Status: Inactive Qualifiers: Heart failure chronicity: acute Qualified Code(s): I50.21 - Acute systolic (congestive) heart failure (3) Hypertension: History, intially low normal blood pressures off of usual medications which include isosorbide and metoprolol. Metoprolol resumed at usual home dose. Remains off of isosorbide. Status: Chronic Qualifiers: Hypertension type: essential hypertension Qualified Code(s): I10 - Essential (primary) hypertension (4) Diabetes mellitus: on insulin and Status: Chronic Qualifiers: Diabetes mellitus type: type 2 Diabetes mellitus [facility]: with [facility] Diabetes mellitus complication status: with hyperglycemia Qualified Code(s): E11.65 - Type 2 diabetes mellitus with hyperglycemia; Z79.4 - intermediate card tender (current) use of insulin (5) Dementia: pleasant most of the time with sundowning in evenings of varying degrees Status: Chronic Qualifiers: Dementia type: unspecified type Dementia behavioral disturbance: without behavioral disturbance Qualified Code(s): F03.90 - Unspecified dementia without behavioral disturbance (6) Osteoarthritis: Status: Chronic Qualifiers: Osteoarthritis location: multiple joints Osteoarthritis type: unspecified Qualified Code(s): M15.9 - Polyosteoarthritis, unspecified Additional A&P Information Hypokalemia after lasix Add potassium oral with IV lasix Continue home dose of metoprolol Monitor blood pressures and volume status Not on oxygen at home Would potentially benefit from nik/arb/entresto but defer to cardiology determination given age and comorbidities On aspirin, plavix Intolerant of statins Has albuterol as needed On home citalopram Has usual as needed tramadol and as needed trazodone Ideally need to discontinue meloxicam given acute cardia issues, though with age potential risk may not outweigh benefits for pain control Continue low dose insulin sliding scale monitoring oral intake and blood sugars Give low dose on long acting insulin this evening Lines/tubes: Peripheral IVs DVT prophylaxis: Patient will not tolerate SCDs; as per cardiology, is getting out of bed Plans, findings and concerns discussed with daughter at the bedside. She was given an opportunity to ask questions. Anticipated Disposition: Home with family Code Status: Allow natural Attestations Medical Necessity Statement*: Ongoing inpatient stay for management post STEMI/PCI as per cardiology, requiring lasix IV and close monitoring of blood pressures and oxygenation with medications adjustments Coding Level of Care Code Acute Blister Packing Machine Tender for Zahra Helms Diagnoses ST elevation myocardial infarction (STEMI) I21.11 Involved coronary artery: right coronary artery Systolic CHF I50.21 Heart failure chronicity: acute Hypertension I10 Hypertension type: essential hypertension Diabetes mellitus E11.65; Z79.4 Diabetes mellitus type: type 2 Diabetes mellitus [facility] insulin use: with intermediate card tender use Diabetes mellitus complication status: with hyperglycemia Dementia F03.90 Dementia type: unspecified type Dementia behavioral disturbance: without behavioral disturbance Osteoarthritis M15.9 Osteoarthritis location: multiple joints Osteoarthritis type: unspecified
[2021-02-09 16:12] LABS: Glucose Point of Care 166 mg/dL (70-110)
[2021-02-09] MEDS: potassium chloride ER 10 mEq Tablet PO ×2 (18:13→21:11)
--- NOTE | 2021-02-09 18:52 | XRR_ITS ---
PROCEDURE INFORMATION: Exam: XR Chest Exam date and time: 02/09/2021 7:00 PM Age: 85 years old Clinical indication: Shortness of breath; Additional info: Chf TECHNIQUE: Imaging protocol: XR of the chest. Views: 1 view. COMPARISON: CR XR chest 1V portable [id number] 02/07/2021 6:34 PM FINDINGS: There are bilateral pulmonary infiltrates greatest within the right infrahilar region and left perihilar region. Findings appear similar to the old exam. There are small pleural effusions. There is no pneumothorax. The heart size is stable. There is pulmonary vascular congestion. XR/XR chest 1V [id number] IMPRESSION: 1. The the lung christian are hypoventilated compared to the previous exam. 2. Infiltrates are not significantly changed nor are the pleural effusions.
--- NOTE | 2021-02-09 19:16 | PC.NURSE ---
Received report from LOYD Lyles. Patient resting in bed with daughter at bedside. Discussed possible discharge for tomorrow with home O2. Daughter verbalized understanding. Patient has had decreased urine output over couple days. Dr Brown is aware. Daughter reports she has had this problem at home as well. Patient has decreased intake. Family assisting and encouraging more intake.
[2021-02-09 19:56] LABS: Glucose Point of Care 264 mg/dL (70-110)
[2021-02-09] MEDS: insulin glargine 100 units/1 mL 5 UNIT SUBCUT (21:12)
[2021-02-09] MEDS: trazodone 50 mg Tablet PO (21:12)
[2021-02-10] VITALS (9 sets, daily range): BP systolic 94–112; BP diastolic 59–81; PULSE 87–107; RESP 15–25; TEMP 36.4–36.8; O2SAT 91–97
[2021-02-10 06:33] LABS: Glucose Point of Care 266 mg/dL (70-110)
[2021-02-10] MEDS: clopidogrel 75 mg Tablet PO (08:29)
[2021-02-10] MEDS: metoprolol tartrate 25 mg Tablet PO ×2 (08:29→20:24)
[2021-02-10] MEDS: aspirin 81 mg EC Tablet PO (08:30)
[2021-02-10] MEDS: citalopram 20 mg Tablet 10 MG PO (08:30)
[2021-02-10 08:51] LABS: Basophils # 0.1 10^3/uL (0.0-0.1); Basophils % 0.5 %; Eosinophils # 0.1 10^3/uL (0.0-0.8); Eosinophils % 0.5 %; Hematocrit 40.7 % (37.0-47.0); Lymphocytes # 1.1 10^3/uL (0.8-4.8); Lymphocytes % 8.2 %; Mean Corpuscular HGB Conc 31.9 g/dL (30.0-36.0); Mean Platelet Volume 11.6 fL (7.4-10.4); Monocytes % 7.7 %; Neutrophils # 10.79 10^3/uL (1.8-7.7); Neutrophils % 82.6 %; Nucleated Red Blood Cells % 0 %; Platelet Count 309 10^3/cmm (130-400); Red Blood Count 4.33 10^6/uL (4.1-5.3); Red Cell Distribution Width 13.3 % (12.1-15.1); White Blood Count 13.1 10^3/uL (4.0-10.0)
[2021-02-10 09:35] LABS: Alanine Aminotransferase 13 U/L (0-33); Alkaline Phosphatase 121 IU/L (35-105); Anion Gap 14.5 (5-19); Aspartate Amino Transferase 30 U/L (0-32); Blood Urea Nitrogen 22 mg/dL (8-23); Calcium 8.8 mg/dL (8.5-10.5); Carbon Dioxide 28 mmol/L (22-29); Chloride 97 mmol/L (98-107); Glucose 317 mg/dL (65-115); Osmolality Calculated 295 mOsm/kg (285-295); Potassium 4.5 mmol/L (3.5-5.1); Sodium 135 mmol/L (136-145)
--- NOTE | 2021-02-10 10:27 | P.PN_ITS ---
Subjective Subjective: Interval history: Patient is doing well. Her oxygen saturation has improved. Still requiring 8 L of oxygen. Creatinine is stable however BUN is slowly going up. Improved food intake today. Vitals/I&O/Wt Last Vital Signs Temp 98.2 F 02/10/21 08:00 Pulse 103 H 02/10/21 08:00 Resp 25 H 02/10/21 08:00 BP 110/68 02/10/21 08:00 Pulse Ox 95 02/10/21 08:00 02/09/21 02/10/21 02/10/21 22:59 06:59 14:59 Intake Total 145 / 625 360 / 360 Balance 145 / 625 360 / 360 Weight last 48 hrs Weight 133 lb 6.4 oz Physical Exam Narrative: EXAM NARRATIVE: GENERAL: Patient is alert, awake , pleasantly confused NECK: No jugular vein distension. [] HEENT: No cyanosis. No icterus. No pallor. [] HEART: Regular S1 and S2. No murmur, rub or gallop. [] LUNGS:Mild crackles ABDOMEN: Soft, nontender and nondistended. Positive bowel sounds. No guarding, rebound or tenderness. [] CENTRAL NERVOUS SYSTEM: Grossly nonfocal. [] EXTREMITIES: Lower extremities with no edema bilaterally. Pulses palpable in the lower extremities, both dorsalis pedis and posterior tibial. [] Data : 02/10/21 08:18 02/10/21 08:18 A&P Assessment and plan (1) ST elevation myocardial infarction (STEMI): Status: Acute Qualifiers: Involved coronary artery: right coronary artery Qualified Code(s): I21.11 - ST elevation (STEMI) myocardial infarction involving right coronary artery (2) Diabetes mellitus: Status: Chronic Qualifiers: Diabetes mellitus type: type 2 Diabetes mellitus vulnerability assessment analyst insulin use: with vulnerability assessment analyst use Diabetes mellitus complication status: with hyperglycemia Qualified Code(s): E11.65 - Type 2 diabetes mellitus with hyperglycemia; Z79.4 - [facility] (current) use of insulin (3) Hyperlipemia: Status: Chronic (4) CAD (coronary artery disease): Status: Chronic Qualifiers: Coronary Disease-Associated Artery/Lesion type: [place] artery [place] v s. transplanted heart: [place] heart Associated angina: without angina Qualified Code(s): I25.10 - Atherosclerotic heart disease of [place] coronary artery without angina pectoris (5) Hypertension: Status: Chronic Qualifiers: Hypertension type: essential hypertension Qualified Code(s): I10 - Essential (primary) hypertension (6) Dementia: Status: Chronic Qualifiers: Dementia type: unspecified type Dementia behavioral disturbance: without behavioral disturbance Qualified Code(s): F03.90 - Unspecified dementia without behavioral disturbance (7) HFrEF (heart failure with reduced ejection fraction): Status: Acute Patient presented with acute ST elevation [place] in anterior wall territory. She was found to have occluded proximal to mid LAD stent. She also had a severe 99% stenosis in the RCA. She underwent successful revascularization of the RCA with a stent and of LAD with balloon angioplasty. Patient has HFrEF with EF of 30-35%. Will hold off on Lasix this morning. Her BUN is slowly going up. Will discuss with medicine team if patient needs antibiotics in case they think chest x-ray suspicious for pneumonia as WBC count has gone up today. Continue aspirin and Plavix. Ideally it should continue for a year however given her dementia, falls we may have to adjust duration based on how she tolerates dual antiplatelet agents. Potassium is normal today Telemetry monitoring. Continue metoprolol For management of medical issues including diabetes, hospitalist service has been consulted. Appreciate their recommendations. Attestations Medical Necessity Statement*: Care expected to cross [address] Patient with acute ST elevation [place] and now has developed HFrEF. She is getting therapy for that and has high oxygen requirement at this time. Will need continued inpatient treatment. Coding Level of Care Code Acute Radiology Ct Technologist for Zahra Helms Diagnoses ST elevation myocardial infarction (STEMI) I21.11 Involved coronary artery: right coronary artery Diabetes mellitus E11.65; Z79.4 Diabetes mellitus type: type 2 Diabetes mellitus senior care insulin use: with senior care use Diabetes mellitus complication status: with hyperglycemia Hyperlipemia E78.5 CAD (coronary artery disease) I25.10 Coronary Disease-Associated Artery/Lesion type: [place] artery [place] vs. transplanted heart: [place] heart Associated angina: without angina Hypertension I10 Hypertension type: essential hypertension Dementia F03.90 Dementia type: unspecified type Dementia behavioral disturbance: without behavioral disturbance HFrEF (heart failure with reduced ejection fraction) I50.20
[2021-02-10 11:38] LABS: Glucose Point of Care 373 mg/dL (70-110)
--- NOTE | 2021-02-10 12:07 | PC.SOCIAL ---
IMM completed with pt and daughter Sue 02/10/21 @ 0222. Copy of rights were given to Sue.
[2021-02-10] MEDS: insulin glargine 100 units/1 mL 5 UNIT SUBCUT (12:53)
[2021-02-10 16:36] LABS: Glucose Point of Care 306 mg/dL (70-110)
[2021-02-10] MEDS: doxycycline 100 mg Tablet PO (17:44)
[2021-02-10 20:26] LABS: Glucose Point of Care 273 mg/dL (70-110)
[2021-02-10] MEDS: insulin glargine 100 units/1 mL 8 UNIT SUBCUT (20:37)
--- NOTE | 2021-02-10 22:30 | PM.PN ---
Subjective Subjective: Interval history: Patient with increased white blood count and cough. Chest x-ray with bilateral nonspecific infiltrates. No fever. Requiring increased FiO2. Discussed with Dr. Brown and started patient on some doxycycline empirically. Blood sugars have elevated with increased oral intake. Vitals/I&O/Wt Last Vital Signs Temp 97.4 F L 02/11/21 07:25 Pulse 107 H 02/11/21 09:08 Resp 20 H 02/11/21 09:08 BP 115/65 02/11/21 07:25 Pulse Ox 94 02/11/21 09:08 02/10/21 02/11/21 02/11/21 22:59 06:59 14:59 Intake Total 360 / 360 Balance 360 / 360 Physical Exam Narrative: EXAM NARRATIVE: Not directly examined today Data : 02/11/21 08:37 02/10/21 08:18 A&P Assessment and plan (1) ST elevation myocardial infarction (STEMI): Status post intervention day of admission. Status: Acute Qualifiers: Involved coronary artery: right coronary artery Qualified Code(s): I21.11 - ST elevation (STEMI) myocardial infarction involving right coronary artery (2) Systolic CHF: new diagnosis post STEMI, requiring some oxygen Status: Inactive Qualifiers: Heart failure chronicity: acute Qualified Code(s): I50.21 - Acute systolic (congestive) heart failure (3) Hypertension: History, intially low normal blood pressures off of usual medications which include isosorbide and metoprolol. Metoprolol resumed at usual home dose. Remains off of isosorbide. Status: Chronic Qualifiers: Hypertension type: essential hypertension Qualified Code(s): I10 - Essential (primary) hypertension (4) Diabetes mellitus: on insulin at home Status: Chronic Qualifiers: Diabetes mellitus type: type 2 Diabetes mellitus terminal operations supervisor insulin use: with terminal operations supervisor use Diabetes mellitus complication status: with hyperglycemia Qualified Code(s): E11.65 - Type 2 diabetes mellitus with hyperglycemia; Z79.4 - termite inspector (current) use of insulin (5) Dementia: pleasant most of the time with sundowning in evenings of varying degrees Status: Chronic Qualifiers: Dementia type: unspecified type Dementia behavioral disturbance: without behavioral disturbance Qualified Code(s): F03.90 - Unspecified dementia without behavioral disturbance (6) Osteoarthritis: Status: Chronic Qualifiers: Osteoarthritis location: multiple joints Osteoarthritis type: unspecified Qualified Code(s): M15.9 - Polyosteoarthritis, unspecified (7) Hypoxemia: My impression is that this is related to pulmonary edema post STEMI however cannot rule out infection. Given the significant need for oxygen, PE within differential. With her age and recent STEMI D-dimer would not be helpful to differentiate. Status: Acute Additional A&P Information Add doxycycline Could consider PE if does not have significant improvement with continued diuresis though with advanced age, dementia, chronic meloxicam use chronic anticoagulation would carry its own risk factors Increase long-acting insulin Attestations Medical Necessity Statement*: Ongoing inpatient stay secondary to increasing oxygen requirements post STEMI Coding Level of Care Code Acute Vocal Performer for g Fwd Diagnoses ST elevation myocardial infarction (STEMI) I21.11 Involved coronary artery: right coronary artery Systolic CHF I50.21 Heart failure chronicity: acute Hypertension I10 Hypertension type: essential hypertension Diabetes mellitus E11.65; Z79.4 Diabetes mellitus type: type 2 Diabetes mellitus nursing home insulin use: with nursing home use Diabetes mellitus complication status: with hyperglycemia Dementia F03.90 Dementia type: unspecified type Dementia behavioral disturbance: without behavioral disturbance Osteoarthritis M15.9 Osteoarthritis location: multiple joints Osteoarthritis type: unspecified Hypoxemia R09.02
[2021-02-11] VITALS (14 sets, daily range): BP systolic 104–131; BP diastolic 65–81; PULSE 90–107; RESP 18–32; TEMP 36.3–36.6; O2SAT 90–100
[2021-02-11] MEDS: ALPRAZolam 0.25 mg Tablet PO ×2 (02:54→23:10)
[2021-02-11 07:33] LABS: Glucose Point of Care 161 mg/dL (70-110)
[2021-02-11 09:00] LABS: Basophils # 0.1 10^3/uL (0.0-0.1); Basophils % 0.6 %; Eosinophils # 0.2 10^3/uL (0.0-0.8); Eosinophils % 1.2 %; Hematocrit 40.4 % (37.0-47.0); Hemoglobin 12.5 g/dL (11.5-15.3); Lymphocytes # 1.3 10^3/uL (0.8-4.8); Mean Corpuscular HGB Conc 30.9 g/dL (30.0-36.0); Mean Corpuscular Hemoglobin 29.7 pg (28.0-34.0); Mean Platelet Volume 11.9 fL (7.4-10.4); Monocytes % 7.9 %; Neutrophils # 10.03 10^3/uL (1.8-7.7); Neutrophils % 79.7 %; Nucleated Red Blood Cells % 0 %; Platelet Count 273 10^3/cmm (130-400); Red Blood Count 4.21 10^6/uL (4.1-5.3); Red Cell Distribution Width 13.3 % (12.1-15.1); White Blood Count 12.6 10^3/uL (4.0-10.0)
[2021-02-11] MEDS: insulin glargine 100 units/1 mL 8 UNIT SUBCUT ×2 (09:20→21:07)
[2021-02-11] MEDS: aspirin 81 mg EC Tablet PO (09:20)
[2021-02-11] MEDS: clopidogrel 75 mg Tablet PO (09:20)
[2021-02-11] MEDS: metoprolol tartrate 25 mg Tablet PO ×2 (09:20→21:07)
[2021-02-11] MEDS: citalopram 20 mg Tablet 10 MG PO (09:20)
[2021-02-11] MEDS: doxycycline 100 mg Tablet PO ×2 (09:20→17:17)
--- NOTE | 2021-02-11 10:50 | PM.PN ---
Subjective Subjective: Interval history: Patient did not sleep well last night but otherwise doing okay according to family. Several are in the room. We talked for some time about the degree of oxygen that she is requiring currently. I wonder at times if it is picking up accurately. It was definitely not multiple times while I was in the room. She is currently down to 5 L. Maintaining sats in the mid 90s to upper 90s. She is getting up to bedside commode and moving around some without significant increase in shortness of breath. Occasionally with a cough. Unclear if productive. Reviewed with all the family in the room infiltrates on chest x-ray, mild elevated white count. Explained that I suspect that the infiltrates are related to pulmonary edema status post heart attack with reduced heart function noted on echocardiogram. Cannot completely rule out infection but that clinically she is not had fever or acute ill appearance to go along with this. Explained that I empirically covered her with some doxycycline yesterday. She has breathing treatments if needed. Reviewed with family differential potentially including a blood clot in the lungs. Patient would not tolerate CTA very well and even if she did, if we were to identify a blood clot, risk of adverse outcomes from chronic full anticoagulation given her dementia, strong will to do what she wants, and such may not be worth the potential limited benefits at her age. All 3 family members present in the room feel the same way. They are comfortable with her going home on oxygen if we can get it down to a few liters. Patient has not reported any chest pain. She does not report being short of breath. Has seemed to be in good spirits to them. Medications: Reviewed: Yes Medication Review Details: Doxycycline day 2 Vitals/I&O/Wt Last Vital Signs Temp 97.4 F L 02/11/21 07:25 Pulse 107 H 02/11/21 09:08 Resp 20 H 02/11/21 09:08 BP 115/65 02/11/21 07:25 Pulse Ox 94 02/11/21 09:08 02/10/21 02/11/21 02/11/21 22:59 06:59 14:59 Intake Total 360 / 360 Balance 360 / 360 Physical Exam Narrative: EXAM NARRATIVE: Constitutional: Resting, will grab at your hand when touched but not wanting to open her eyes Respiratory: Clear to auscultation presently decreased at bases, no rales on my examination Cardiovascular: Regular rhythm occasional extra beat, no murmurs Abdomen: Soft, nontender Extremities: No pitting edema, no calf tenderness or palpable cords Neuro: Smile is symmetric, handgrip equal Data : 02/11/21 08:37 02/10/21 08:18 A&P Assessment and plan (1) ST elevation myocardial infarction (STEMI): Status cath and PCI on 02/07 Status: Acute Qualifiers: Involved coronary artery: right coronary artery Qualified Code(s): I21.11 - ST elevation (STEMI) myocardial infarction involving right coronary artery (2) Systolic CHF: new diagnosis post STEMI, requiring some oxygen Status: Inactive Qualifiers: Heart failure chronicity: acute Qualified Code(s): I50.21 - Acute systolic (congestive) heart failure (3) Hypertension: History, intially low normal blood pressures off of usual medications which include isosorbide and metoprolol. Metoprolol resumed at usual home dose. Remains off of isosorbide with consistently low normal blood pressures. Status: Chronic Qualifiers: Hypertension type: essential hypertension Qualified Code(s): I10 - Essential (primary) hypertension (4) Diabetes mellitus: on insulin at home, Levemir 20 units twice per day as needed Status: Chronic Qualifiers: Diabetes mellitus type: type 2 Diabetes mellitus penitentiary insulin use: with middle or intermediate school principal use Diabetes mellitus complication status: with hyperglycemia Qualified Code(s): E11.65 - Type 2 diabetes mellitus with hyperglycemia; Z79.4 - middle or intermediate school principal (current) use of insulin (5) Dementia: pleasant most of the time with owning in evenings of varying degrees Status: Chronic Qualifiers: Dementia type: unspecified type Dementia behavioral disturbance: without behavioral disturbance Qualified Code(s): F03.90 - Unspecified dementia without behavioral disturbance (6) Osteoarthritis: Status: Chronic Qualifiers: Osteoarthritis location: multiple joints Osteoarthritis type: unspecified Qualified Code(s): M15.9 - Polyosteoarthritis, unspecified (7) Hypoxemia: My impression is that this is related to pulmonary edema post STEMI at this time. Given the significant need for oxygen, PE within differential. With her age and recent STEMI, D-dimer would not really be helpful to differentiate. Patient will be a poor candidate for long-term anticoagulation and she would not likely tolerate a CTA of the chest very well without sedation which carries its own risks. Status: Acute Additional A&P Information Continue efforts at weaning oxygen We will see how she responds to oral Lasix given drop in blood pressure with IV Lasix Remains on 25 twice daily of metoprolol with intermittent tachycardia Would potentially benefit from nik/arb/entresto but defer to cardiology determination given age and comorbidities On aspirin, plavix, intolerant of statins Continue doxycycline orally for 7-10 days total Check procalcitonin Has breathing treatments if needed Continue activity with assistance No history of previous oxygen requirement other family is comfortable with her going home on oxygen if we can get it down to 2 to 3 L If continues to require 5 or more liters of oxygen will check an ABG. At times I do not feel that it is accurate and I am not sure how much the amount of oxygen she is on is reflective of this. Increase morning Lantus, continue same dose evening Lantus On home citalopram Has usual as needed tramadol and as needed trazodone Ideally need to discontinue meloxicam though with age potential risk may not outweigh benefits for pain control, not on it here Patient does not tolerate SCDs, given prolonged hospital stay will initiate at least DVT prophylaxis currently Family wants to balance age, degree of dementia and potential genuine benefit to patient when determining course of evaluation and treatment. She is to be allowed natural Disposition plan is for home, likely with oxygen therapy when we are able to get liter flow down a bit. Attestations Medical Necessity Statement*: Requires ongoing inpatient stay secondary to need for oxygen at current flow rates and other issues as noted. Plans are as indicated. Coding Level of Care Code Acute Law Enforcement Instructor for Zahra Helms Diagnoses ST elevation myocardial infarction (STEMI) I21.11 Involved coronary artery: right coronary artery Systolic CHF I50.21 Heart failure chronicity: acute Hypertension I10 Hypertension type: essential hypertension Diabetes mellitus E11.65; Z79.4 Diabetes mellitus type: type 2 Diabetes mellitus middle or intermediate school principal insulin use: with penitentiary use Diabetes mellitus complication status: with hyperglycemia Dementia F03.90 Dementia type: unspecified type Dementia behavioral disturbance: without behavioral disturbance Osteoarthritis M15.9 Osteoarthritis location: multiple joints Osteoarthritis type: unspecified Hypoxemia R09.02
[2021-02-11 11:06] LABS: Anion Gap 12.2 (5-19); Blood Urea Nitrogen 25 mg/dL (8-23); Calcium 8.9 mg/dL (8.5-10.5); Carbon Dioxide 30 mmol/L (22-29); Chloride 94 mmol/L (98-107); Glucose 269 mg/dL (65-115); Osmolality Calculated 288 mOsm/kg (285-295); Potassium 4.2 mmol/L (3.5-5.1); Sodium 132 mmol/L (136-145)
[2021-02-11 11:27] LABS: Glucose Point of Care 244 mg/dL (70-110)
[2021-02-11 11:49] LABS: Procalcitonin 0.24 ng/mL (0-0.5)
[2021-02-11] MEDS: enoxaparin 40 mg/0.4 mL Syringe SUBCUT (12:24)
[2021-02-11] MEDS: potassium chloride ER 10 mEq Tablet PO ×2 (12:24→21:07)
[2021-02-11] MEDS: FUROsemide 20 mg Tablet PO (12:24)
--- NOTE | 2021-02-11 13:07 | PM.PN ---
Subjective Subjective: Interval history: Patient is doing well. Denies complaints of chest pain or shortness of breath. O2 requirement has come down and is on 5 Liters of O2 today Vitals/I&O/Wt Last Vital Signs Temp 97.4 F L 02/11/21 07:25 Pulse 90 02/11/21 12:04 Resp 20 H 02/11/21 12:04 BP 104/72 02/11/21 12:00 Pulse Ox 95 02/11/21 12:04 02/10/21 02/11/21 02/11/21 22:59 06:59 14:59 Intake Total 480 / 480 Balance 480 / 480 Physical Exam Narrative: EXAM NARRATIVE: GENERAL: Patient is alert, awake , pleasantly confused NECK: No jugular vein distension. [] HEENT: No cyanosis. No icterus. No pallor. [] HEART: Regular S1 and S2. No murmur, rub or gallop. [] LUNGS:Mild crackles ABDOMEN: Soft, nontender and nondistended. Positive bowel sounds. No guarding, rebound or tenderness. [] CENTRAL NERVOUS SYSTEM: Grossly nonfocal. [] EXTREMITIES: Lower extremities with no edema bilaterally. Pulses palpable in the lower extremities, both dorsalis pedis and posterior tibial. [] Data : 02/12/21 06:46 02/12/21 04:48 A&P Assessment and plan (1) ST elevation myocardial infarction (STEMI): Status: Acute Qualifiers: Involved coronary artery: right coronary artery Qualified Code(s): I21.11 - ST elevation (STEMI) myocardial infarction involving right coronary artery (2) Diabetes mellitus: Status: Chronic Qualifiers: Diabetes mellitus type: type 2 Diabetes mellitus oil heaterman insulin use: with skilled nursing use Diabetes mellitus complication status: with hyperglycemia Qualified Code(s): E11.65 - Type 2 diabetes mellitus with hyperglycemia; Z79.4 - middle or intermediate school principal (current) use of insulin (3) Hyperlipemia: Status: Chronic (4) CAD (coronary artery disease): Status: Chronic Qualifiers: Coronary Disease-Associated Artery/Lesion type: [place] artery [place] vs. transplanted heart: [place] heart Associated angina: without angina Qualified Code(s): I25.10 - Atherosclerotic heart disease of [place] coronary artery without angina pectoris (5) Hypertension: Status: Chronic Qualifiers: Hypertension type: essential hypertension Qualified Code(s): I10 - Essential (primary) hypertension (6) Dementia: Status: Chronic Qualifiers: Dementia type: unspecified type Dementia behavioral disturbance: without behavioral disturbance Qualified Code(s): F03.90 - Unspecified dementia without behavioral disturbance (7) HFrEF (heart failure with reduced ejection fraction): Status: Acute Patient presented with acute ST elevation [place] in anterior wall territory. She was found to have occluded proximal to mid LAD stent. She also had a severe 99% stenosis in the RCA. She underwent successful revascularization of the RCA with a stent and of LAD with balloon angioplasty. Patient has HFrEF with EF of 30-35%. Lasix switched to PO. O 2 requirement is decreasing. Family wants to take patient back home when she is ready for discharge. Continue aspirin and Plavix. Ideally it should continue for a year however given her dementia, falls we may have to adjust duration based on how she tolerates dual antiplatelet agents. Potassium is normal today Telemetry monitoring. Continue metoprolol For management of medical issues including diabetes, hospitalist service has been consulted. Appreciate their recommendations. Attestations Medical Necessity Statement*: Care expected to cross 2 midnights. Patient post STEMI and has developed HFrEF and has is requiring high amout of oxygen. Coding Level of Care Code Acute Jockey Room Custodian for Zahra Helms Diagnoses ST elevation myocardial infarction (STEMI) I21.11 Involved coronary artery: right coronary artery Diabetes mellitus E11.65; Z79.4 Diabetes mellitus type: type 2 Diabetes mellitus oil heaterman insulin use: with skilled nursing use Diabetes mellitus complication status: with hyperglycemia Hyperlipemia E78.5 CAD (coronary artery disease) I25.10 Coronary Disease-Associated Artery/Lesion type: [place] artery [place] vs. transplanted heart: [place] heart Associated angina: without angina Hypertension I10 Hypertension type: essential hypertension Dementia F03.90 Dementia type: unspecified type Dementia behavioral disturbance: without behavioral disturbance HFrEF (heart failure with reduced ejection fraction) I50.20
[2021-02-11 16:10] LABS: Glucose Point of Care 98 mg/dL (70-110)
[2021-02-11 19:47] LABS: Glucose Point of Care 196 mg/dL (70-110)
[2021-02-12] VITALS (10 sets, daily range): BP systolic 104–126; BP diastolic 66–88; PULSE 94–108; RESP 16–28; TEMP 36.4–36.6; O2SAT 88–96
[2021-02-12 03:56] LABS: ABG PCO2 42.4 mmHg (35-45); ABG PH Result 7.51 (7.35-7.45); Arterial Blood Gas Hematocrit 37.9 % (37-47); Base Excess ABG 9.6 mmol/L (-2.0-2.0); Blood Gas Allen Test Pos; Blood Gas Sample Site Radial, left; Blood Gas Sample Type Arterial; HCO3 ABG 33.6 mmol/L (22-26); Oxygen Device NC; PO2 ABG 54.9 mmHg (80.0-100.0)
[2021-02-12 06:00] LABS: Anion Gap 14.2 (5-19); Blood Urea Nitrogen 24 mg/dL (8-23); Calcium 8.7 mg/dL (8.5-10.5); Carbon Dioxide 27 mmol/L (22-29); Chloride 100 mmol/L (98-107); Glucose 100 mg/dL (65-115); Osmolality Calculated 288 mOsm/kg (285-295); Potassium 4.2 mmol/L (3.5-5.1); Sodium 137 mmol/L (136-145)
[2021-02-12 06:51] LABS: Basophils # 0.1 10^3/uL (0.0-0.1); Basophils % 0.6 %; Eosinophils # 0.1 10^3/uL (0.0-0.8); Eosinophils % 1.3 %; Hematocrit 39.3 % (37.0-47.0); Hemoglobin 12.5 g/dL (11.5-15.3); Lymphocytes # 1.9 10^3/uL (0.8-4.8); Lymphocytes % 16.9 %; Mean Corpuscular HGB Conc 31.8 g/dL (30.0-36.0); Mean Corpuscular Hemoglobin 29.8 pg (28.0-34.0); Mean Corpuscular Volume 93.6 fL (81-99); Mean Platelet Volume 10.9 fL (7.4-10.4); Monocytes # 0.9 10^3/uL (0.2-0.9); Monocytes % 8.2 %; Neutrophils # 8.01 10^3/uL (1.8-7.7); Neutrophils % 72.5 %; Nucleated Red Blood Cells % 0 %; Platelet Count 352 10^3/cmm (130-400); Red Cell Distribution Width 13.4 % (12.1-15.1)
[2021-02-12 07:16] LABS: Glucose Point of Care 98 mg/dL (70-110)
--- NOTE | 2021-02-12 08:45 | P.PN_ITS ---
Subjective Subjective: Interval history: Patient is overall doing well. She denies any complaints of chest pain or shortness of breath. Her oxygen requirement is decreasing. Vitals/I&O/Wt Last Vital Signs Temp 97.6 F 02/12/21 06:56 Pulse 105 H 02/12/21 06:56 Resp 16 02/12/21 06:56 BP 126/79 02/12/21 06:56 Pulse Ox 93 02/12/21 06:56 02/11/21 02/12/21 02/12/21 22:59 06:59 14:59 Intake Total 100 / 580 Balance 100 / 580 Physical Exam Narrative: EXAM NARRATIVE: GENERAL: Patient is alert, awake , pleasantly confused NECK: No jugular vein distension. [] HEENT: No cyanosis. No icterus. No pallor. [] HEART: Regular S1 and S2. No murmur, rub or gallop. [] LUNGS:Mild crackles ABDOMEN: Soft, nontender and nondistended. Positive bowel sounds. No guarding, rebound or tenderness. [] CENTRAL NERVOUS SYSTEM: Grossly nonfocal. [] EXTREMITIES: Lower extremities with no edema bilaterally. Pulses palpable in the lower extremities, both dorsalis pedis and posterior tibial. [] Data : 02/12/21 06:46 02/12/21 04:48 A&P Assessment and plan (1) ST elevation myocardial infarction (STEMI): Status: Acute Qualifiers: Involved coronary artery: right coronary artery Qualified Code(s): I21.11 - ST elevation (STEMI) myocardial infarction involving right coronary artery (2) Diabetes mellitus: Status: Chronic Qualifiers: Diabetes mellitus type: type 2 Diabetes mellitus detention insulin use: with longwall headgate operator use Diabetes mellitus complication status: with hyperglycemia Qualified Code(s): E11.65 - Type 2 diabetes mellitus with hyperglycemia; Z79.4 - field account manager (current) use of insulin (3) Hyperlipemia: Status: Chronic (4) CAD (coronary artery disease): Status: Chronic Qualifiers: Coronary Disease-Associated Artery/Lesion type: [place] artery [place] vs. transplanted heart: [place] heart Associated angina: without angina Qualified Code(s): I25.10 - Atherosclerotic heart disease of [place] coronary artery without angina pectoris (5) Hypertension: Status: Chronic Qualifiers: Hypertension type: essential hypertension Qualified Code(s): I10 - Essential (primary) hypertension (6) Dementia: Status: Chronic Qualifiers: Dementia type: unspecified type Dementia behavioral disturbance: without behavioral disturbance Qualified Code(s): F03.90 - Unspecified dementia without behavioral disturbance (7) HFrEF (heart failure with reduced ejection fraction): Status: Acute Patient presented with acute ST elevation [place] in anterior wall territory. She was found to have occluded proximal to mid LAD stent. She also had a severe 99% stenosis in the RCA. She underwent successful revascularization of the RCA with a stent and of LAD with balloon angioplasty. Patient has HFrEF with EF of 30-35%. Will diurese with IV Lasix 20 mg twice daily for today. Family wants to take patient back home when she is ready for discharge. Continue aspirin and Plavix. Ideally it should continue for a year however given her dementia, falls we may have to adjust duration based on how she tolerates dual antiplatelet agents. Potassium is normal today Telemetry monitoring. Continue metoprolol. Will add low-dose lisinopril. For management of medical issues including diabetes, hospitalist service has been consulted. Appreciate their recommendations. If patient stays stable overnight, will plan on discharging tomorrow. Attestations Medical Necessity Statement*: Care expected to cross 2 midnights. Patient had presented with acute anterior wall STEMI and developed heart failure after that. Getting diuresed. If stays stable, plan on discharging home tomorrow Coding Level of Care Code Acute Houseperson for Zahra Helms Diagnoses ST elevation myocardial infarction (STEMI) I21.11 Involved coronary artery: right coronary artery Diabetes mellitus E11.65; Z79.4 Diabetes mellitus type: type 2 Diabetes mellitus longwall headgate operator insulin use: with longwall headgate operator use Diabetes mellitus complication status: with hyperglycemia Hyperlipemia E78.5 CAD (coronary artery disease) I25.10 Coronary Disease-Associated Artery/Lesion type: [place] artery [place] vs. transplanted heart: [place] heart Associated angina: without angina Hypertension I10 Hypertension type: essential hypertension Dementia F03.90 Dementia type: unspecified type Dementia behavioral disturbance: without behavioral disturbance HFrEF (heart failure with reduced ejection fraction) I50.20
[2021-02-12] MEDS: doxycycline 100 mg Tablet PO ×2 (08:57→17:58)
[2021-02-12] MEDS: aspirin 81 mg EC Tablet PO (08:58)
[2021-02-12] MEDS: clopidogrel 75 mg Tablet PO (08:58)
[2021-02-12] MEDS: metoprolol tartrate 25 mg Tablet PO ×2 (08:58→21:17)
[2021-02-12] MEDS: citalopram 20 mg Tablet 10 MG PO (08:58)
[2021-02-12] MEDS: potassium chloride ER 10 mEq Tablet PO ×2 (09:05→21:17)
--- NOTE | 2021-02-12 10:29 | PM.PN ---
Subjective Subjective: Interval history: Patient was examined this morning, family is at that time, she is alert to person, not to place, not to time, she has no complaints, no fevers overnight, still on 4 L nasal cannula Vitals/I&O/Wt Last Vital Signs Temp 97.6 F 02/12/21 06:56 Pulse 105 H 02/12/21 06:56 Resp 16 02/12/21 06:56 BP 126/79 02/12/21 06:56 Pulse Ox 93 02/12/21 06:56 02/11/21 02/12/21 02/12/21 22:59 06:59 14:59 Intake Total 100 / 580 220 / 220 Balance 100 / 580 220 / 220 Physical Exam Const: COMMON NORMALS: no acute distress ORIENTATION/CONSCIOUSNESS: Yes awake and Yes oriented to person; not oriented to place and not oriented to time Neck/C-Spine: COMMON NORMALS: no JVD Resp: COMMON NORMALS: normal respiratory effort, No retractions and clear to auscultation bilaterally AUSCULTATION: clear to auscultation bilaterally Cardio: COMMON NORMALS: no JVD, regular rate, regular rhythm, S1 normal heart sound present and S2 normal heart sound present RATE: regular rate RHYTHM: regular rhythm HEART SOUNDS: S1 normal heart sound present and S2 normal heart sound present GI: COMMON NORMALS: Normal to inspection, nondistended, normoactive bowel sounds present, Soft to palpation and non-tender PALPATION: Yes Soft to palpation Extremity: NARRATIVE EXTREMITY EXAM: 1+ edema Neuro: SENSORIUM/ORIENTATION: Yes oriented to person, No oriented to place and No oriented to time Data : 02/12/21 06:46 02/12/21 04:48 A&P Assessment and plan (1) ST elevation myocardial infarction (STEMI): Status cath and PCI on 02/07 Status: Acute Qualifiers: Involved coronary artery: right coronary artery Qualified Code(s): I21.11 - ST elevation (STEMI) myocardial infarction involving right coronary artery (2) Systolic CHF: new diagnosis post STEMI, requiring some oxygen Status: Inactive Qualifiers: Heart failure chronicity: acute Qualified Code(s): I50.21 - Acute systolic (congestive) heart failure (3) Hypertension: History, intially low normal blood pressures off of usual medications which include isosorbide and metoprolol. Metoprolol resumed at usual home dose. Remains off of isosorbide with consistently low normal blood pressures. Status: Chronic Qualifiers: Hypertension type: essential hypertension Qualified Code(s): I10 - Essential (primary) hypertension (4) Diabetes mellitus: on insulin at home, Levemir 20 units twice per day as needed Status: Chronic Qualifiers: Diabetes mellitus type: type 2 Diabetes mellitus men's locker room attendant insulin use: with longterm use Diabetes mellitus complication status: with hyperglycemia Qualified Code(s): E11.65 - Type 2 diabetes mellitus with hyperglycemia; Z79.4 - central supply aide (current) use of insulin (5) Dementia: pleasant most of the time with sundowning in evenings of varying degrees Status: Chronic Qualifiers: Dementia type: unspecified type Dementia behavioral disturbance: without behavioral disturbance Qualified Code(s): F03.90 - Unspecified dementia without behavioral disturbance (6) Osteoarthritis: Status: Chronic Qualifiers: Osteoarthritis location: multiple joints Osteoarthritis type: unspecified Qualified Code(s): M15.9 - Polyosteoarthritis, unspecified (7) Hypoxemia: My impression is that this is related to pulmonary edema post STEMI at this time. Given the significant need for oxygen, PE within differential. With her age and recent STEMI, D-dimer would not really be helpful to differentiate. Patient will be a poor candidate for long-term anticoagulation and she would not likely tolerate a CTA of the chest very well without sedation which carries its own risks. Status: Acute Additional A&P Information Continue efforts at weaning oxygen risks Currently on IV Lasix 20 mg IV twice daily On metoprolol 25 mg twice daily Would potentially benefit from nik/arb/entresto but defer to cardiology determination given age and comorbidities On aspirin, plavix, intolerant of statins Continue doxycycline orally for 7-10 days total Has breathing treatments if needed Continue activity with assistance Currently on 4 L, continue to monitor oxygen requirements PT OT, up out of bed, incentive spirometer, flutter valve Increase morning Lantus, continue same dose evening Lantus On home citalopram Has usual as needed tramadol and as needed trazodone Ideally need to discontinue meloxicam though with age potential risk may not outweigh benefits for pain control, not on it here Patient does not tolerate SCDs, DVT prophylaxis Lovenox Family wants to balance age, degree of dementia and potential genuine benefit to patient when determining course of evaluation and treatment. She is to be allowed natural Disposition plan is for home, likely with oxygen therapy when we are able to get liter flow down a bit. Attestations Medical Necessity Statement*: Patient requires hospitalization, for patient requires hospitalization for STEMI, CHF, requiring inpatient diuresis Coding Level of Care Code Acute Tightener for Zaidag Fwd Diagnoses ST elevation myocardial infarction (STEMI) I21.11 Involved coronary artery: right coronary artery Systolic CHF I50.21 Heart failure chronicity: acute Hypertension I10 Hypertension type: essential hypertension Diabetes mellitus E11.65; Z79.4 Diabetes mellitus type: type 2 Diabetes mellitus longterm insulin use: with men's locker room attendant use Diabetes mellitus complication status: with hyperglycemia Dementia F03.90 Dementia type: unspecified type Dementia behavioral disturbance: without behavioral disturbance Osteoarthritis M15.9 Osteoarthritis location: multiple joints Osteoarthritis type: unspecified Hypoxemia R09.02
[2021-02-12 10:59] LABS: Glucose Point of Care 152 mg/dL (70-110)
--- NOTE | 2021-02-12 11:32 | PC.SOCIAL ---
IMM Updated Updated pt's daughter on Pg 2 IMM. No questions voiced. Provided pt a copy. Signed, dated, & timed copy in chart.
[2021-02-12] MEDS: FUROsemide 10 mg/mL SDV 2mL 20 MG IVP (12:14)
[2021-02-12] MEDS: enoxaparin 40 mg/0.4 mL Syringe SUBCUT (12:15)
[2021-02-12 16:15] LABS: Glucose Point of Care 90 mg/dL (70-110)
[2021-02-12 19:58] LABS: Glucose Point of Care 137 mg/dL (70-110)
[2021-02-12] MEDS: trazodone 50 mg Tablet PO (21:17)
[2021-02-12] MEDS: ALPRAZolam 0.25 mg Tablet PO (21:17)
[2021-02-13 03:46] LABS: Basophils # 0.1 10^3/uL (0.0-0.1); Eosinophils # 0.3 10^3/uL (0.0-0.8); Eosinophils % 3.3 %; Hematocrit 38.3 % (37.0-47.0); Hemoglobin 12.1 g/dL (11.5-15.3); Lymphocytes # 1.7 10^3/uL (0.8-4.8); Mean Corpuscular HGB Conc 31.6 g/dL (30.0-36.0); Mean Corpuscular Hemoglobin 29.5 pg (28.0-34.0); Mean Corpuscular Volume 93.4 fL (81-99); Mean Platelet Volume 11.3 fL (7.4-10.4); Monocytes # 0.9 10^3/uL (0.2-0.9); Monocytes % 9.7 %; Neutrophils # 6.04 10^3/uL (1.8-7.7); Neutrophils % 66.6 %; Nucleated Red Blood Cells % 0 %; Platelet Count 340 10^3/cmm (130-400); Red Cell Distribution Width 13.2 % (12.1-15.1); White Blood Count 9.1 10^3/uL (4.0-10.0)
[2021-02-13 03:57] VITALS: BP 103/62; PULSE 84; RESP 19; TEMP 36.6; O2SAT 92
[2021-02-13 04:10] LABS: Alanine Aminotransferase 10 U/L (0-33); Albumin Level 2.5 g/dL (3.5-5.2); Alkaline Phosphatase 124 IU/L (35-105); Anion Gap 11.1 (5-19); Aspartate Amino Transferase 21 U/L (0-32); Blood Urea Nitrogen 22 mg/dL (8-23); Calcium 8.5 mg/dL (8.5-10.5); Carbon Dioxide 30 mmol/L (22-29); Chloride 98 mmol/L (98-107); Globulin 3.2 g/dL (1.3-4.6); Glucose 93 mg/dL (65-115); Osmolality Calculated 283 mOsm/kg (285-295); Potassium 4.1 mmol/L (3.5-5.1); Sodium 135 mmol/L (136-145); Total Bilirubin 0.7 mg/dL (0.15-1.2); Total Protein 5.7 g/dL (6.6-8.7)
[2021-02-13 06:00] VITALS: PULSE 89
[2021-02-13 06:41] LABS: Glucose Point of Care 109 mg/dL (70-110)
[2021-02-13 07:36] VITALS: BP 113/72; PULSE 93; RESP 23; O2SAT 93
--- NOTE | 2021-02-13 09:14 | PC.CHAP ---
Pastoral Care Encounter/Spiritual Assessment Type of Contact [] Declined technology architect visit [] Patient/Family/Request visit [] Outpatient visit [] Follow-up visit [] Physician referral [] Code/Alert [x] Routine visit [] Staff referral [] Actively dying [] Patient sleeping [] Family support [] [] Out of room [] Palliative care [] [x] Receiving care in room [] Pre-surgical visit [] Trauma [] Long length of stay [] ICU visit [] Other: Relational/Emotional Strength [] Patient feels connected with others/family/visitors/staff [] Distress [] Loneliness/isolation [] Abandonment Spirituality of Patient [] Person of Kelly [] Attends Restorationist of their Kelly [] Believes in Prayer [] Reads Bible or Adventist materials [] There are Spiritual issues to be addressed Business Development Assistant Interventions [x] Prayer [] Active listening [] Non-anxious presence [] Spiritual/emotional support [] Crisis/trauma care [] Spiritual counseling [] Bereavement support [] Provided bereavement packet [] Provided Bible/devotional materials [] Provided toy/stuffed animal, coloring book to patient or family member [] Provided Communion [] Anointing/[place] [] Salvation [x] Completed spiritual assessment [] Other: Impact on Illness or Injury [] Angry [] Fearful [] Anxious [] Often cries [] Exhaustion [] Unable to work [] Unable to attend restorationism [] Unable to walk/stand [] Unable to read [] Unable to drive [] Unable to eat/drink [] Unable to sleep [] Unable to be with family [] Patient intubated [] Other: Summary Time spent with patient
[2021-02-13 09:28] VITALS: PULSE 93; RESP 18; O2SAT 92
[2021-02-13] MEDS: doxycycline 100 mg Tablet PO (09:48)
[2021-02-13] MEDS: metoprolol tartrate 25 mg Tablet PO (09:48)
[2021-02-13] MEDS: clopidogrel 75 mg Tablet PO (09:49)
[2021-02-13] MEDS: citalopram 20 mg Tablet 10 MG PO (09:49)
[2021-02-13] MEDS: insulin glargine 100 units/1 mL 11 UNIT SUBCUT (09:50)
[2021-02-13] MEDS: aspirin 81 mg EC Tablet PO (09:50)
--- NOTE | 2021-02-13 09:51 | P.DS_ITS ---
Discharge Providers Date of Admission: 02/07/21 00:04 Date of Discharge: February 13, 2021 Attending Provider at Admission: Dony Brown M.D Attending Provider at Discharge: Dony Brown M.D Primary Care Provider: RASHMI [place] Diagnoses at Discharge Discharge Diagnosis (1) ST elevation myocardial infarction (STEMI): Qualifiers: Involved coronary artery: right coronary artery Qualified Code(s): I21.11 - ST elevation (STEMI) myocardial infarction involving right coronary artery (2) Diabetes mellitus: Status: Chronic Qualifiers: Diabetes mellitus complication status: with hyperglycemia Diabetes mellitus assisted insulin use: with assisted use Diabetes mellitus type: type 2 Qualified Code(s): E11.65 - Type 2 diabetes mellitus with hyperglycemia; Z79.4 - shelter (current) use of insulin (3) Hyperlipemia: Status: Chronic (4) CAD (coronary artery disease): Status: Chronic Qualifiers: Associated angina: without angina Coronary Disease-Associated Artery/Lesion type: [place] artery [place] vs. transplanted heart: [place] heart Qualified Code(s): I25.10 - Atherosclerotic heart disease of [place] coronary artery without angina pectoris (5) Hypertension: Status: Chronic Qualifiers: Hypertension type: essential hypertension Qualified Code(s): I10 - Essential (primary) hypertension (6) Dementia: Status: Chronic Qualifiers: Dementia behavioral disturbance: without behavioral disturbance Dementia type: unspecified type Qualified Code(s): F03.90 - Unspecified dementia without behavioral disturbance (7) HFrEF (heart failure with reduced ejection fraction): Status: Acute Permanent problem details: EF 30-35% on echo 02/07/21 post STEMI Reason for Visit Reason for Visit: CHEST PAIN AND BODY PAIN Brief History: 85 year old female with past medical history of hypertension, diabetes, coronary artery disease with prior history of PCI's, dementia presented to the hospital with chest pain symptoms. Her history is not reliable secondary to her dementia. However family was on bedside and mentioned that she has been complaining of chest pain today. Duration of symptoms is not exactly known. EKG demonstrated acute ST elevation [place] and anterior wall territory. Decision was made to take patient to cardiac Business Support Coordinator emergently. She was loaded with aspirin, Plavix and was given heparin bolus. Hospital Course Hospital Course 85 year old female with past medical history of hypertension, diabetes, coronary artery disease with prior history of PCI's, dementia presented to the hospital with chest pain symptoms. Her history is not reliable secondary to her dementia. However family was on bedside and mentioned that she has been complaining of chest pain today. Duration of symptoms is not exactly known. EKG demonstrated acute ST elevation [place] and anterior wall territory. Decision was made to take patient to cardiac Business Support Coordinator emergently. She was loaded with aspirin, Plavix and was given heparin bolus. Coronary angiography showed occluded proximal to mid LAD stent and severe stenosis of mid RCA stent. She underwent successful revascularization with balloon angioplasty of LAD and PCI of RCA. Post PCI patient is doing well. Her EKG changes and symptoms have resolved. Patient developed heart failure symptoms. Her ECHO demonstrated EF of 30%. Patient's O 2 saturations were low. She was put on supplemental O2 and iv diuretics. Close monitoring of renal function was done. For management of medical issues hospitalist team was consulted. Patient was doing well and was ready to be discharged on supplemental O2 . Family wanted to have home hospice given her significant dementia and that was set up. There was also concern for pneumonia and she was started on doxycycline and will complete 7-10 days of therapy. Physical Exam Narrative: EXAM NARRATIVE: GENERAL: Patient is alert, awake , pleasantly confused NECK: No jugular vein distension. [] HEENT: No cyanosis. No icterus. No pallor. [] HEART: Regular S1 and S2. No murmur, rub or gallop. [] LUNGS:Mild crackles ABDOMEN: Soft, nontender and nondistended. Positive bowel sounds. No guarding, rebound or tenderness. [] CENTRAL NERVOUS SYSTEM: Grossly nonfocal. [] EXTREMITIES: Lower extremities with no edema bilaterally. Pulses palpable in the lower extremities, both dorsalis pedis and posterior tibial. [] Discharge Data Data Completed and Pending: Completed Studies During Hospitalization Category Date Time Status XR chest 1V [id number] Routine Exams 02/09/21 18:52 Completed XR chest 1V [place] ble [id number] Routine Exams 02/07/21 07:00 Completed XR chest 1V m[place]ison ble [id number] Stat Exams 02/07/21 18:20 Completed CV echo complete* [id number] Routine Ultrasound 02/07/21 09:09 Completed Pending at discharge Category Date Time Status EDITORIAL SPECIALIST request for service Stat Exams 02/06/21 22:35 Taken Complete Blood Co unt w/Auto AM LABS Lab 02/14/21 04:00 Ordered Complete Blood Co unt w/Auto AM LABS Lab 02/15/21 04:00 Ordered Comprehensive Met abolic Panel AM LA BS Lab 02/14/21 04:00 Ordered Comprehensive Met abolic Panel AM LA BS Lab 02/15/21 04:00 Ordered NT Pro B Type Joslyn riuretic Pept QAM Lab 02/14/21 06:00 Ordered NT Pro B Type Joslyn riuretic Pept QAM Lab 02/15/21 06:00 Ordered Labs from last 24 hours 02/13/21 02/13/21 02/13/21 06:28 02:58 02:58 WBC RBC Hgb Hct MCV MCH MCHC RDW Plt Count MPV Neut % (Auto) Lymph % (Auto) [place] % (Auto) Eos % (Auto) Baso % (Auto) Neut # (Auto) Lymph # (Auto) [place] # (Auto) Eos # (Auto) Baso # (Auto) Nucleated RBC % (a uto) Nucleated RBCs # Sodium 135 L Potassium 4.1 Chloride 98 Carbon Dioxide 30 H Anion Gap 11.1 BUN 22 Creatinine 0.8 GFR Calculation Not Reportable Glucose 93 POC Glucose 109 Calculated Osmolal ity 283 L Calcium 8.5 Total Bilirubin 0.7 AST 21 ALT 10 Alkaline Phosphata se 124 H NT-Pro-B Natriuret Pep 99412 H Total Protein 5.7 L Albumin 2.5 L Globulin 3.2 02/13/21 02/12/21 02/12/21 02:58 19:37 16:00 WBC 9.1 RBC 4.10 Hgb 12.1 Hct 38.3 MCV 93.4 MCH 29.5 MCHC 31.6 RDW 13.2 Plt Count 340 MPV 11.3 H Neut % (Auto) 66.6 Lymph % (Auto) 19.0 [place] % (Auto) 9.7 Eos % (Auto) 3.3 Baso % (Auto) 1.0 Neut # (Auto) 6.04 Lymph # (Auto) 1.7 [place] # (Auto) 0.9 Eos # (Auto) 0.3 Baso # (Auto) 0.1 Nucleated RBC % (a uto) 0 Nucleated RBCs # 0.0 Sodium Potassium Chloride Carbon Dioxide Anion Gap BUN Creatinine GFR Calculation Glucose POC Glucose 137 H 90 Calculated Osmolal ity Calcium Total Bilirubin AST ALT Alkaline Phosphata se NT-Pro-B Natriuret Pep Total Protein Albumin Globulin 02/12/21 10:48 WBC RBC Hgb Hct MCV MCH MCHC RDW Plt Count MPV Neut % (Auto) Lymph % (Auto) [place] % (Auto) Eos % (Auto) Baso % (Auto) Neut # (Auto) Lymph # (Auto) [place] # (Auto) Eos # (Auto) Baso # (Auto) Nucleated RBC % (a uto) Nucleated RBCs # Sodium Potassium Chloride Carbon Dioxide Anion Gap BUN Creatinine GFR Calculation Glucose POC Glucose 152 H Calculated Osmolal ity Calcium Total Bilirubin AST ALT Alkaline Phosphata se NT-Pro-B Natriuret Pep Total Protein Albumin Globulin Vitals: Last Vital Signs Temp 97.9 F 02/13/21 03:57 Pulse 93 02/13/21 07:36 Resp 23 H 02/13/21 07:36 BP 113/72 02/13/21 07:36 Pulse Ox 93 02/13/21 07:36 Discharge Plan Discharge Patient Disposition: Hospice - Home Condition: Stable Prescriptions: New aspirin 81 mg Tablet,Delayed Release (Dr/Ec) 81 mg PO DAILY Qty: 90 RF: 3 clopidogrel 75 mg Tablet 75 mg PO DAILY Qty: 90 RF: 3 doxycycline monohydrate 100 mg Tablet 100 mg PO BID Qty: 10 RF: 0 lisinopril 2.5 mg tablet 2.5 mg PO DAILY Qty: 60 RF: 1 Lasix 20 mg tablet 20 mg PO DAILY Qty: 60 RF: 1 Continued albuterol sulfate 2.5 mg /3 mL (0.083 %) solution for nebulization 2.5 mg INHALATION QID PRN (Reason: shortness of breath or wheezing) Qty: 75 RF: 0 (DME) nebulizers Misc See Rx Instructions .ROUTE .MEDSUPPLY Qty: 1 RF: 0 ketoconazole 2 % cream 1 applic TOPICAL BID Qty: 30 RF: 2 (DME) blood-glucose meter [Blood Glucose Monitoring] Kit See Rx Instructions .ROUTE .MEDSUPPLY Qty: 1 RF: 0 (DME) lancets [Lancets,Ultra Thin] 26 gauge misc See Rx Instructions .ROUTE .MEDSUPPLY Qty: 200 RF: 2 trazodone 50 mg tablet 50 mg PO BEDTIME PRN (Reason: Insomnia) 90 Days Qty: 90 RF: 1 (DME) Blood Glucose Test Strip See Rx Instructions .ROUTE .MEDSUPPLY Qty: 200 RF: 2 meloxicam 15 mg tablet 15 mg PO DAILY Qty: 90 RF: 3 pen needle, diabetic [UltiCare Pen Needle] 31 gauge x 1/4 needle See Rx Instructions .ROUTE .COMPLEX Qty: 100 RF: 5 Ultram 50 mg Tablet 50 mg PO PRN RF: 0 citalopram 10 mg tablet 10 mg PO QAM RF: 0 cyanocobalamin (vitamin B-12) 1,000 mcg/mL solution 1,000 mcg IM .monthly RF: 0 ergocalciferol (vitamin D2) 1,250 mcg (50,000 unit) capsule 1,250 mcg PO Q7D RF: 0 Levemir FlexTouch U-100 Insuln 100 unit/mL (3 mL) insulin pen 20 unit SUBCUT BID PRN (Reason: blood sugar) RF: 0 Changed metoprolol tartrate 25 mg tablet 25 mg PO BID Qty: 120 RF: 1 Discontinued isosorbide mononitrate 60 mg tablet extended release 24 hr 60 mg PO QAM 90 Days Qty: 90 RF: 0 amlodipine 5 mg tablet 5 mg PO QAM RF: 0 Discharge Orders: Discharge Order (Routine); Ordered 02/13/21 Ordered By: Dony Brown Other Ambulatory Orders: DME: Oxygen (Order) Location: None Selected Ordered By: Tyshawn Chisholm Referrals: [facility] [Other] ([facility] will be contacting you to set up a time to admit you to their services. If you have any questions or concern please call them at [phone].) Dony Brown M.D [Physician] - 1 month Sue Monsivais FNP [Primary Care Provider] - Discharge Diet: Cardiac and Diabetic Discharge Activity: Increase activity as tolerated Patient Instructions: Myocardial Infarction (DC), Coronary Angioplasty (DC) Activity Restrictions/Additional Instructions: Please do not lift more than 5 pounds of weight for the next 5 days check cbc in 5 day, monitor for bloody and black stools Discharge Attestations Time Spent in Discharge Care*: greater than 30 min Status at Discharge: Cognitive status at discharge: mildly impaired cognition (has underlying dementia) , Behavioral status at discharge: cooperative , Quality Metrics Clinical Quality Measures During this hospital stay, did patient experience: AMI Clinical Trial Participant: No Contraindication to aspirin (AMI): Aspirin given Contraindication to statin: Adverse reaction to drug Coding Level of Care Code Acute Chg FW DC note Diagnoses ST elevation myocardial infarction (STEMI) I21.11 Involved coronary artery: right coronary artery Diabetes mellitus E11.65; Z79.4 Diabetes mellitus complication status: with hyperglycemia Diabetes mellitus emt intermediate insulin use: with emt intermediate use Diabetes mellitus type: type 2 Hyperlipemia E78.5 CAD (coronary artery disease) I25.10 Associated angina: without angina Coronary Disease-Associated Artery/Lesion type: [place] artery [place] vs. transplanted heart: [place] heart Hypertension I10 Hypertension type: essential hypertension Dementia F03.90 Dementia behavioral disturbance: without behavioral disturbance Dementia type: unspecified type HFrEF (heart failure with reduced ejection fraction) I50.20
[2021-02-13] MEDS: potassium chloride ER 10 mEq Tablet PO (09:52)
--- NOTE | 2021-02-13 10:18 | PM.PN ---
Subjective Subjective: Interval history: Patient was seen this morning, she has no complaints, she had a good night, family at bedside, family would like patient to have hospice at home, we will set this up before she goes Vitals/I&O/Wt Last Vital Signs Temp 97.9 F 02/13/21 03:57 Pulse 93 02/13/21 09:28 Resp 18 02/13/21 09:28 BP 113/72 02/13/21 07:36 Pulse Ox 92 02/13/21 09:28 02/12/21 02/13/21 02/13/21 22:59 06:59 14:59 Intake Total 300 / 520 100 / 620 Balance 300 / 520 100 / 620 Physical Exam Const: COMMON NORMALS: no acute distress ORIENTATION/CONSCIOUSNESS: Yes awake and Yes oriented to person; not oriented to place and not oriented to time Neck/C-Spine: COMMON NORMALS: no JVD Resp: COMMON NORMALS: normal respiratory effort, No retractions, No use of accessory muscles and clear to auscultation bilaterally AUSCULTATION: clear to auscultation bilaterally Cardio: COMMON NORMALS: no JVD, regular rate, regular rhythm, S1 normal heart sound present and S2 normal heart sound present RATE: regular rate RHYTHM: regular rhythm HEART SOUNDS: S1 normal heart sound present and S2 normal heart sound present GI: COMMON NORMALS: Normal to inspection, nondistended, normoactive bowel sounds present, Soft to palpation, non-tender and No hepatosplenomegaly present PALPATION: Yes Soft to palpation and Yes No hepatosplenomegaly present Extremity: COMMON NORMALS: no pedal edema Neuro: SENSORIUM/ORIENTATION: Yes oriented to person, No oriented to place and No oriented to time Data : 02/13/21 02:58 02/13/21 02:58 A&P Assessment and plan (1) ST elevation myocardial infarction (STEMI): Status cath and PCI on 02/07 Status: Acute Qualifiers: Involved coronary artery: right coronary artery Qualified Code(s): I21.11 - ST elevation (STEMI) myocardial infarction involving right coronary artery (2) Systolic CHF: new diagnosis post STEMI, requiring some oxygen Status: Inactive Qualifiers: Heart failure chronicity: acute Qualified Code(s): I50.21 - Acute systolic (congestive) heart failure (3) Hypertension: History, intially low normal blood pressures off of usual medications which include isosorbide and metoprolol. Metoprolol resumed at usual home dose. Remains off of isosorbide with consistently low normal blood pressures. Status: Chronic Qualifiers: Hypertension type: essential hypertension Qualified Code(s): I10 - Essential (primary) hypertension (4) Diabetes mellitus: on insulin at home, Levemir 20 units twice per day as needed Status: Chronic Qualifiers: Diabetes mellitus type: type 2 Diabetes mellitus terminal operations manager insulin use: with terminal operations manager use Diabetes mellitus complication status: with hyperglycemia Qualified Code(s): E11.65 - Type 2 diabetes mellitus with hyperglycemia; Z79.4 - manager terminal (current) use of insulin (5) Dementia: pleasant most of the time with sundowning in evenings of varying degrees Status: Chronic Qualifiers: Dementia type: unspecified type Dementia behavioral disturbance: without behavioral disturbance Qualified Code(s): F03.90 - Unspecified dementia without behavioral disturbance (6) Osteoarthritis: Status: Chronic Qualifiers: Osteoarthritis location: multiple joints Osteoarthritis type: unspecified Qualified Code(s): M15.9 - Polyosteoarthritis, unspecified (7) Hypoxemia: My impression is that this is related to pulmonary edema post STEMI at this time. Given the significant need for oxygen, PE within differential. With her age and recent STEMI, D-dimer would not really be helpful to differentiate. Patient will be a poor candidate for long-term anticoagulation and she would not likely tolerate a CTA of the chest very well without sedation which carries its own risks. Status: Acute Additional A&P Information Continue efforts at weaning oxygen risks Transition to p.o. Lasix On metoprolol 25 mg twice daily Would potentially benefit from nik/arb/entresto but defer to cardiology determination given age and comorbidities On aspirin, plavix, intolerant of statins Continue doxycycline orally for 7-10 days total Has breathing treatments if needed Continue activity with assistance Currently on 2 L, will require home O2 eval PT OT, up out of bed, incentive spirometer, flutter valve Increase morning Lantus, continue same dose evening Lantus On home citalopram Has usual as needed tramadol and as needed trazodone Ideally need to discontinue meloxicam though with age potential risk may not outweigh benefits for pain control, not on it here Patient does not tolerate SCDs, DVT prophylaxis Lovenox Family wants to balance age, degree of dementia and potential genuine benefit to patient when determining course of evaluation and treatment. She is to be allowed natural Disposition plan is for home, likely with oxygen therapy, with home hospice We will discharge today with home hospice Attestations Medical Necessity Statement*: Patient be discharged today with home hospice Coding Level of Care Code Acute Test Pilot for Zahra Helms Diagnoses ST elevation myocardial infarction (STEMI) I21.11 Involved coronary artery: right coronary artery Systolic CHF I50.21 Heart failure chronicity: acute Hypertension I10 Hypertension type: essential hypertension Diabetes mellitus E11.65; Z79.4 Diabetes mellitus type: type 2 Diabetes mellitus terminal operations manager insulin use: with retirement use Diabetes mellitus complication status: with hyperglycemia Dementia F03.90 Dementia type: unspecified type Dementia behavioral disturbance: without behavioral disturbance Osteoarthritis M15.9 Osteoarthritis location: multiple joints Osteoarthritis type: unspecified Hypoxemia R09.02
--- NOTE | 2021-02-13 10:20 | PC.NURSE ---
Took over care: Took over pt care at 0920.
[2021-02-13 11:29] LABS: Glucose Point of Care 189 mg/dL (70-110)
[2021-02-13 12:00] VITALS: BP 113/72; PULSE 93; RESP 18; TEMP 36.6; O2SAT 87; O2SAT 94; O2SAT 95
== END 2021-02-13 14:38 | disposition hospice, home (50) | DRG 246 ==
LOC: ER 02-07 00:18 → CSU 02-07 00:19
PROVIDERS: Family Medicine; Hospitalist; Internal Medicine; Admitting Provider Internal Medicine; Emergency Provider Emergency Medicine; PCP Nurse Practitioner Family; Visit Provider Internal Medicine
PROC: 027034Z Dilation of Coronary Artery, One Artery with Drug-eluting Intraluminal Device, Percutaneous Approach (ICD-10-PCS; principal; 2021-02-06 22:15)
PROC: 027034Z Dilation of Coronary Artery, One Artery with Drug-eluting Intraluminal Device, Percutaneous Approach (ICD-10-PCS; 2021-02-06 22:15)
DX: T82.855A Stenosis of coronary artery stent, initial encounter (principal); I21.09 ST elevation (STEMI) myocardial infarction involving other coronary artery of anterior wall; I50.21 Acute systolic (congestive) heart failure; J18.9 Pneumonia, unspecified organism; Y71.1 Therapeutic (nonsurgical) and rehabilitative cardiovascular devices associated with adverse incidents; I11.0 Hypertensive heart disease with heart failure; E11.65 Type 2 diabetes mellitus with hyperglycemia; I25.10 Atherosclerotic heart disease of native coronary artery without angina pectoris; Z95.5 Presence of coronary angioplasty implant and graft; F03.90 Unspecified dementia, unspecified severity, without behavioral disturbance, psychotic disturbance, mood disturbance, and anxiety; E78.5 Hyperlipidemia, unspecified; M15.9 Polyosteoarthritis, unspecified; Z90.49 Acquired absence of other specified parts of digestive tract; Z66 Do not resuscitate; Z79.4 Long term (current) use of insulin
CPT/HCPCS: 36415; 36416; 36600; 51702; 71045; 80048; 80053; 82803; 82962; 83735; 83880; 84145; 84484; 85025; 85347; 92920; 93005; 93306; 93454; 94640; 96372; 96374; 96375; 99285; C1725; C1760; C1769; C1874; C1887; C1894; C9606; J1644; J1650; J1815 ×2; J1940; J2250; J2270; J2405; J3010; J3480; J7030; J7611; Q9967

== ENCOUNTER → 2021-03-09 10:19 | Outpatient (BNVA) | payer OTHER, MEDICARE, BC, SELFPAY | PROVIDERS: PCP Nurse Practitioner Family; Visit Provider Nurse Practitioner Family | DX: I50.20 Unspecified systolic (congestive) heart failure (principal) | CPT/HCPCS: 80048; 83880 ==

== ENCOUNTER → 2021-10-17 12:20 | Outpatient (BNVA) | payer MEDICARE, BC, SELFPAY | PROVIDERS: PCP Nurse Practitioner Family; Visit Provider Nurse Practitioner Family | DX: E11.65 Type 2 diabetes mellitus with hyperglycemia (principal); Z79.4 Long term (current) use of insulin; J40 Bronchitis, not specified as acute or chronic; I10 Essential (primary) hypertension; E78.5 Hyperlipidemia, unspecified; I25.10 Atherosclerotic heart disease of native coronary artery without angina pectoris; F03.90 Unspecified dementia, unspecified severity, without behavioral disturbance, psychotic disturbance, mood disturbance, and anxiety; Z79.899 Other long term (current) drug therapy | CPT/HCPCS: 80053; 80061; 82306; 82607; 83036; 85025; 87635 ==